=== PATIENT | male | born 1965 | race Caucasian/White ===

== ENCOUNTER 2017-10-26 10:38 | Emergency (ER) | payer BC, SELFPAY ==
[2017-10-26 10:39] VITALS: BP 163/102; PULSE 89; RESP 24; TEMP 36.8; O2SAT 93; BMI 38.8
--- NOTE | 2017-10-26 10:55 | ED.VISSUMM ---
- ER Visit Summary Date of Service: 10/26/17 Chief Complaint: Productive cough of green sputum along with wheezing and shortness of breath the last 2 weeks History of Present Illness: The patient is a 51 M history of bronchitis and tobacco abuse. Debility smokes a pack cigarettes a day. States last 2 weeks she has had a productive cough of green sputum. Denies any fever. Also shortness of breath and wheezing. But denies any hemoptysis. He denies any significant chest pain. No leg pain or swelling. No history of DVT or PE. Physical Examination: Middle-aged male no acute distress vital signs stable afebrile. Pulse ox 93% on room air no hypoxia. H EENT exam unremarkable. Neck nontender no JVD no lymphadenopathy. Lungs prolonged expiratory phase. Inspiratory expiratory wheezing. No rhonchi or rales. Heart regular rhythm rate about 90 no murmur. Abdomen soft nontender. Moving all 4 extremities. No edema or cords. Calves nontender. Neurologically is awake and alert with no focal motor deficits. Back exam nontender. Test Results: Chest x-ray shows mild hyperinflation with no acute abnormality no infiltrate read both by myself and the radiologist. Emergency Department Course and Treatment: Patient will be treated with p.o. steroids prednisone and DuoNeb and albuterol aerosol treatments. Treatment Plan: Repeat exam patient is doing well. Much better after aerosols and steroids. Will be placed on prednisone 40 g a day for 1 week. Uses inhalers. Return if doing worse. Disposition: Discharge Impression: Acute asthmatic bronchitis This note was generated with [employer] dictation software. It may contain incorrect words, spelling, and punctuation that were not noted in review of the chart prior to signing ED Disposition - Plan for ED Patient: Chief Complaint: Shortness of Breath Referrals: Tu Rae Chi, MD [Primary Care Provider] -
[2017-10-26 10:56] VITALS: BP 166/102; PULSE 95; RESP 17; O2SAT 92
--- NOTE | 2017-10-26 11:00 | RAD_ITS ---
STUDY: X-RAY CHEST REASON FOR EXAM: Male, 51 years old. Cough, shortness of breath TECHNIQUE: PA and lateral views of the chest. COMPARISON: 06/01/2016 FINDINGS: Cardiac monitoring leads overlie the chest. The lungs are hyperinflated. There is no focal consolidation. There is no demonstrated pleural abnormality. Normal size heart. Normal mediastinum and praveen. Normal visualized pulmonary arteries. Normal visualized aortic arch and descending thoracic aorta. There are diffuse degenerative changes of the visualized thoracic spine. Normal visualized ribs, clavicles, and shoulders. There is no demonstrated abnormality of the visualized soft tissue structures of the upper abdomen. RAD/Chest PA and Lateral IMPRESSION: Hyperinflation, without focal consolidation. Electronically Signed: Ben Ruiz DO at 11:29 EDT Tel , Service support ,
[2017-10-26] MEDS: Albuterol 2.5 MG/3 ML VIAL.NEB. INHALATION ×2 (11:08→11:10)
[2017-10-26] MEDS: Ipratropium/Albuterol Sulfate 3 ML AMPUL.NEB INHALATION (11:08)
[2017-10-26 11:10] VITALS: PULSE 90; RESP 13; O2SAT 93
[2017-10-26] MEDS: predniSONE 20 MG Tablet 60 MG PO (11:20)
[2017-10-26 12:17] VITALS: O2SAT 93
--- NOTE | 2017-10-26 12:20 | ED.DEP ---
ED Disposition - Plan for ED Patient: Disposition: Home or Assisted Living Chief Complaint: Shortness of Breath Instructions: ED Bronchitis Asthmatic Prescriptions: Albuterol Inhaler [Ventolin Hfa] 1 - 2 puff INHALATION Q4H PRN PRN #1 inhaler PRN Reason: Wheezing Azithromycin [Zithromax Z-Theron] 250 mg PO UD #1 box Prednisone [Deltasone] 40 mg PO DAILY 7 Days tab Referrals: Tu Rae Chi, MD [Primary Care Provider] - Additional Instructions: Absolutely stop smoking. Prednisone 40 g a day for 1 week. Usual inhaler as needed. Return if doing worse. Only start antibiotic if not improving in 3-5 days.
== END 2017-10-26 13:29 | disposition home or self-care (01) ==
PROVIDERS: Emergency Provider Emergency Medicine; Family Provider Family Medicine Geriatric Medicine; PCP Family Medicine Geriatric Medicine
DX: J45.901 Unspecified asthma with (acute) exacerbation (principal); R06.00 Dyspnea, unspecified; F17.210 Nicotine dependence, cigarettes, uncomplicated
CPT/HCPCS: 71046; 94640; 99283

== ENCOUNTER 2020-12-27 11:22 | Emergency (ER) | payer BC, SELFPAY ==
[2020-12-27 11:23] VITALS: BP 194/118; PULSE 80; RESP 19; TEMP 36.2; O2SAT 96; BMI 43.0
--- NOTE | 2020-12-27 12:08 | VDLE_ITS ---
Reason For Study: Swelling Procedure LEFT This is a venous duplex using B-mode, color GSV is normal. flow and spectral Doppler. CFV is compressible, spontaneous, phasic, Exam performed portable in ED. competent, and demonstrates normal A preliminary report was called and/or faxed augmentation. to [facility]. FV is compressible, spontaneous, phasic, competent and demonstrates normal augmentation. POP V is compressible, spontaneous, phasic, competent and demonstrates normal augmentation. T/P Trunk is compressible. PTV is compressible. LT PerV is compressible. VL/Venous Duplex US, Unilateral Interpretation Summary There is no evidence of left lower extremity deep vein thrombosis. Left great s aphenous vein appears patent and compressible segmentally. Ordering Physician: MD Steff Escobedofer Referring Physician: Tu Rae Chi Performed By: Salena Linn RVT
--- NOTE | 2020-12-27 12:29 | EX.ED.DYSGE1 ---
HPI History of Present Illness Chief Complaint: Wound Check Informant: patient Onset/Context/Timing Onset: Weeks Current Severity: Mild Maximum Severity: Moderate Narrative Narrative: Patient presents secondary to left lower extremity wound. He has a superficial ulcerated lesion to the left leon that is been present for several months. Patient states of the past 2 weeks has had redness around the area. He went to urgent care today who sent him to the emergency room. He denies any drainage from the wound. No fever or chills. PFSH PFS Medical History Hypertension Home Medications albuterol sulfate [Ventolin HFA] 2 puff INHALATION Q4H PRN PRN #1 inhaler 12/27/20 [Rx Last Taken Unknown] doxycycline monohydrate 100 mg PO BID #20 cap 12/27/20 [Rx Last Taken Unknown] Allergy/AdvReac Type Severity Reaction Status Date / Time iodine Allergy Severe Anaphylaxis Verified 10/26/17 10:40 iohexol [From Omnipaque] Allergy Severe Anaphylaxis Verified 10/26/17 10:40 Iodinated Contrast Media [CT] Allergy Anaphylaxis Verified 10/26/17 10:40 Social History Smoking Status: Current every day smoker tobacco type: cigarettes ROS ROS ED Constitutional Constitutional ED: Denies chills or fever(s) Eyes Eyes: Denies change in vision ENT ENT ED: Denies sore throat Cardiovascular Cardiovascular: Denies chest pain Respiratory/Chest Respiratory/Chest: Denies cough or dyspnea Gastrointestinal Gastrointestinal: Denies abdominal pain, diarrhea, nausea or vomiting Genitourinary Genitourinary ED: Denies dysuria Musculoskeletal Musculoskeletal: Reports arthralgias Integumentary Reports other Details: Left leg wound ; Denies rash Neurologic Neurologic: Denies headache(s) or weakness Psychiatric Psychiatric: Denies anxiety or depression Allergic/Immunologic Allergic/Immunologic ED: Denies urticaria EXAM Physical Exam Const Vital Signs: 12/27/20 11:23 Temperature 97.1 F L Temperature Source Temporal Pulse Rate 80 Respiratory Rate 19 H Blood Pressure 194/118 H Blood Pressure Mean 143 Pulse Ox 96 Oxygen Delivery Method Room Air Positive well nourished and well developed General Appearance ED: well developed HEENT Reports normocephalic and head/scalp atraumatic Eyes PERRL and EOMs intact bilaterally Neck supple Chest Wall inspection of chest normal and palpation of chest normal Resp normal respiratory effort Auscultation: wheezes expiratory wheezes Cardio regular rate and regular rhythm GI normal to inspection, nondistended, normoactive bowel sounds and non-tender Palpation: soft Extremity Extremity Narrative: 5 x 3 cm superficial dried ulcer to the left leon. Mild surrounding erythema and warmth. No drainage from the wound. 2+ edema to the left lower extremity. Neuro oriented x3 and no sensory deficits noted Sensorium / Orientation: alert Motor Exam: strength 5/5 throughout Psych mental status grossly normal MDM MDM MDM Narrative Medical decision making narrative: Venous ultrasound of the leg obtained. CBC and chemistry studies ordered. Lab Data Attestation: I reviewed the patient's lab results. Labs: Laboratory Results - last 24 hr 12/27/20 12/27/20 12:20 12:20 WBC 7.1 RBC 4.96 Hgb 16.1 Hct 47.3 MCV 95.4 H MCH 32.5 H MCHC 34.0 RDW Std Deviation 41.3 RDW Coeff of Rohit 12.1 Plt Count 251 MPV 8.0 Immature Gran % (Auto) 1.400 H Neut % (Auto) 61.3 Lymph % (Auto) 28.5 [place] % (Auto) 6.8 Eos % (Auto) 1.0 Baso % (Auto) 1.0 Absolute Neuts (auto) 4.3 Absolute Lymphs (auto) 2.01 Nucleated RBC % 0 Sodium 139 Potassium 3.9 Chloride 102 Carbon Dioxide 33.0 H Anion Gap 4 L BUN 11 Creatinine 0.96 Estim Creat Clear Calc 88.72 Est GFR (MDRD) Af Amer 104 Est GFR (MDRD) Non-Af 86 BUN/Creatinine Ratio 11.5 Glucose 145 H Calcium 9.4 Treatment and Re-Evaluation Comments:: Venous ultrasound of the leg obtained. Lab work unremarkable. Patient be treated with a course of doxycycline as he does have erythema and warmth consistent with an early cellulitis. Will refer him to the wound care center for follow-up. Patient's blood pressure was quite elevated on arrival. On repeat examination blood pressure is 170/120. Patient states that he tends to run very high at the doctor's offices. Blood pressure still elevated at home but better. He has been tried on multiple blood pressure medications but unable to tolerate them secondary to dizziness. Discharge Plan Triage Chief Complaint: Wound Check ED Provider: Rosalva Escobedo Dx/Rx/DC Orders Clinical Impression: Cellulitis Instructions: ED Cellulitis Prescriptions: New doxycycline monohydrate 100 MG capsule 100 mg PO BID Qty: 20 RF: 0 albuterol sulfate [Ventolin HFA] 1 INHALER inhaler 2 puff inhalation Q4H PRN PRN (Reason: Wheezing) Qty: 1 RF: 0 Primary Care Provider: Tu Rae Chi Referrals: Tu Rae Chi, MD [Primary Care Provider] - Activity Restrictions/Additional Instructions: Please follow-up with the wound care center. You can call [phone] for an appointment. Disposition Disposition: Home, Self Care
[2020-12-27 12:43] LABS: Absolute Lymphocyte Count 2.01 X10^3/uL (0.83-4.51); Absolute Neutrophil Count 4.3 X10^3/uL (2.0-7.7); Basophil# 0.07 X10^3/uL; Eosinophil# 0.07 X10^3/uL; Hematocrit 47.3 % (40-54); Hemoglobin 16.1 g/dL (13.0-16.5); Lymphocyte # 2.01 X10^3/ul (0.83-4.51); Lymphocyte % 28.5 % (19-41); Mean Corpuscular Hgb 32.5 pg (27.0-32.0); Mean Corpuscular Volume 95.4 fL (80-94); Monocyte# 0.48 X10^3/uL; Monocyte% 6.8 % (0-10); NRBC Flagged by Analyzer 0 % (0-5); Neutrophil # 4.32 X10^3/uL (2.7-7.7); Neutrophil % 61.3 % (47-70); Platelet Count 251 K/mm3 (150-450); RBC Distribution Width CV 12.1 % (11.6-14.6); RBC Distribution Width SD 41.3 fl (35.1-43.9); Red Blood Count 4.96 M/mm3 (4.6-6.2); White Blood Count 7.1 K/mm3 (4.4-11.0)
[2020-12-27 12:49] LABS: Anion Gap 4 (5-15); BUN 11 mg/dL (7-18); BUN/Creat Ratio 11.5 RATIO (10-20); Calcium,Total 9.4 mg/dL (8.5-10.1); Chloride 102 mmol/L (98-107); Creatinine, Serum 0.96 mg/dL (0.70-1.30); EST Glomerular Filtration Rate 86 mL/min (>60); Est Glom Filt Rate - Afr Amer 104 mL/min (>60); Estimated Creatinine Clearance 88.72 ml/min; Glucose 145 mg/dL (74-106); Potassium 3.9 mmol/L (3.5-5.1); Sodium Level 139 mmol/L (136-145)
[2020-12-27] MEDS: Doxycycline 100 MG CAPSULE PO (13:13)
[2020-12-27 13:16] VITALS: BP 182/112; PULSE 86; RESP 18; TEMP 36.6; O2SAT 97
== END 2020-12-27 13:18 | disposition home or self-care (01) ==
LOC: ED 13:11
PROVIDERS: Emergency Provider Emergency Medicine
DX: L03.116 Cellulitis of left lower limb (principal); F17.210 Nicotine dependence, cigarettes, uncomplicated
CPT/HCPCS: 80048; 85025; 93971; 99284; A4216

== ENCOUNTER 2021-01-02 12:07 | Emergency (ER) | payer BC, SELFPAY ==
[2021-01-02 12:08] VITALS: BP 153/100; PULSE 103; RESP 18; TEMP 36.3; O2SAT 94; BMI 43.0
--- NOTE | 2021-01-02 12:40 | EDS_ITS ---
HPI History of Present Illness Chief Complaint: Lower Extremity Injury Informant: patient Onset/Context/Timing Onset: Weeks Context: Gradual Onset Narrative Narrative: Patient presents for repeat evaluation of his left lower leg swelling. Patient was seen 1 week ago by myself. At that time he had a several month history of chronic wound to the left leon and left leg swelling. He noticed redness and warmth. Blood work was unremarkable. Venous ultrasound negative for DVT. He was given a course of doxycycline and referred to the wound care center. Patient states he has not noted significant improvement with the doxycycline and wanted to be rechecked. No fever or chills. [facility] Medical History Hypertension Home Medications albuterol sulfate [Ventolin HFA] 2 puff INHALATION Q4H PRN PRN #1 inhaler 12/27/20 [Rx Last Taken Unknown] doxycycline monohydrate 100 mg PO BID #20 cap 12/27/20 [Rx Last Taken Unknown] Allergy/AdvReac Type Severity Reaction Status Date / Time iodine Allergy Severe Anaphylaxis Verified 01/02/21 12:14 iohexol [From Omnipaque] Allergy Severe Anaphylaxis Verified 01/02/21 12:14 Iodinated Contrast Media [CT] Allergy Anaphylaxis Verified 01/02/21 12:14 Social History Smoking Status: Current every day smoker tobacco type: cigarettes ROS ROS ED Constitutional Constitutional ED: Denies chills or fever(s) Eyes Eyes: Denies change in vision ENT ENT ED: Denies sore throat Cardiovascular Cardiovascular: Denies chest pain Respiratory/Chest Respiratory/Chest: Denies cough or dyspnea Gastrointestinal Gastrointestinal: Denies abdominal pain, diarrhea, nausea or vomiting Genitourinary Genitourinary ED: Denies dysuria Musculoskeletal Musculoskeletal: Reports other Details: Leg edema ; Denies back pain Integumentary Reports other Details: Erythema lower legs, left greater than right Neurologic Neurologic: Reports headache(s) Endocrine Endocrinology: Denies polydipsia or polyuria Allergic/Immunologic Allergic/Immunologic ED: Denies urticaria EXAM Physical Exam Const Vital Signs: 01/02/21 12:08 01/02/21 13:06 Temperature 97.3 F L 97.3 F L Temperature Source Temporal Temporal Pulse Rate 103 H 103 H Respiratory Rate 18 18 Blood Pressure 153/100 H 153/100 H Blood Pressure Mean 117 117 Pulse Ox 94 94 Oxygen Delivery Method Room Air Room Air Positive well nourished and well developed General Appearance ED: well developed HEENT Reports normocephalic and head/scalp atraumatic Eyes PERRL and EOMs intact bilaterally Neck supple Chest Wall inspection of chest normal and palpation of chest normal Resp normal respiratory effort and clear to auscultation bilaterally Cardio regular rate and regular rhythm GI normal to inspection, nondistended, normoactive bowel sounds Palpation: soft Extremity Extremity Narrative: 3+ left lower extremity edema. 1-2+ right lower extremity edema. Evidence of venous congestion with broken capillaries under the skin. Chronic wound over the left leon appears to be improving with no sign of acute infection. No significant warmth over the area indicative of acute infection. Neuro oriented x3 and no sensory deficits noted Sensorium / Orientation: alert Motor Exam: strength 5/5 throughout Psych mental status grossly normal MDM MDM MDM Narrative Medical decision making narrative: CBC is obtained to check for leukocytosis. Lab Data Attestation: I reviewed the patient's lab results. Labs: Laboratory Results - last 24 hr 01/02/21 13:05 WBC 5.1 RBC 4.73 Hgb 15.6 Hct 45.7 MCV 96.6 H MCH 33.0 H MCHC 34.1 RDW Std Deviation 43.7 RDW Coeff of Rohit 12.1 Plt Count 172 MPV 8.1 Immature Gran % (Auto) 0.800 Neut % (Auto) 60.0 Lymph % (Auto) 29.3 [place] % (Auto) 7.9 Eos % (Auto) 1.6 Baso % (Auto) 0.4 Absolute Neuts (auto) 3.1 Absolute Lymphs (auto) 1.49 Nucleated RBC % 0 Treatment and Re-Evaluation Comments:: Patient's white count remains normal. When I saw the patient previously there was some increased erythema and warmth over the left anterior leon. That seems to be resolved. The skin changes I see currently are more consistent with lymphedema and capillary rupture from pressure. Hesham wrap will be applied to provide light compression. Patient will be referred back to wound care center for follow-up. He will be given a couple days off work. Discharge Plan Triage Chief Complaint: Lower Extremity Injury ED Provider: Escobedo,Rosalva Dx/Rx/DC Orders Clinical Impression: Lymphedema Instructions: ED Lymphedema Prescriptions: No Action doxycycline monohydrate 100 MG capsule 100 mg PO BID Qty: 20 RF: 0 albuterol sulfate [Ventolin HFA] 1 INHALER inhaler 2 puff inhalation Q4H PRN PRN (Reason: Wheezing) Qty: 1 RF: 0 Primary Care Provider: Care Physician,No Primary Referrals: Care Physician,No Primary [Primary Care Provider] - Activity Restrictions/Additional Instructions: Please follow-up with the wound care center. You can call [phone] for an appointment. Disposition Disposition: Home, Self Care
[2021-01-02 13:06] VITALS: BP 153/100; PULSE 103; RESP 18; TEMP 36.3; O2SAT 94
[2021-01-02 13:17] LABS: Absolute Lymphocyte Count 1.49 X10^3/uL (0.83-4.51); Absolute Neutrophil Count 3.1 X10^3/uL (2.0-7.7); Basophil# 0.02 X10^3/uL; Basophil% 0.4 % (0-1); Eosinophil# 0.08 X10^3/uL; Eosinophils% 1.6 % (0-5); Hematocrit 45.7 % (40-54); Hemoglobin 15.6 g/dL (13.0-16.5); Lymphocyte # 1.49 X10^3/ul (0.83-4.51); Lymphocyte % 29.3 % (19-41); Mean Corp Hgb Conc 34.1 g/dL (32-36); Mean Corpuscular Volume 96.6 fL (80-94); Mean Platelet Vol. 8.1 fl (6.2-12.0); Monocyte% 7.9 % (0-10); NRBC Flagged by Analyzer 0 % (0-5); Neutrophil # 3.06 X10^3/uL (2.7-7.7); Platelet Count 172 K/mm3 (150-450); RBC Distribution Width CV 12.1 % (11.6-14.6); RBC Distribution Width SD 43.7 fl (35.1-43.9); Red Blood Count 4.73 M/mm3 (4.6-6.2); White Blood Count 5.1 K/mm3 (4.4-11.0)
[2021-01-02 15:23] VITALS: BP 134/79; PULSE 92; RESP 22; O2SAT 96
--- NOTE | 2021-01-02 15:24 | ED.RN ---
THIS NURSE REVIEWED D/C INSTRUCTIONS WITH PT. PT VERBALIZED UNDERSTANDING OF INSTRUCTIONS. LEGS WRAPPED. IV D/C. IV CATHETER INTACT. PT TOLERATED WELL. PT DENIES FURTHER NEEDS OR QUESITONS AT THIS TIME. PT AMBULATES FROM ROOM ON OWN WITHOUT ASSISTANCE FROM STAFF
== END 2021-01-02 15:25 | disposition home or self-care (01) ==
PROVIDERS: Emergency Provider Emergency Medicine
DX: I89.0 Lymphedema, not elsewhere classified (principal); F17.210 Nicotine dependence, cigarettes, uncomplicated
CPT/HCPCS: 85025; 99283; A4216

== ENCOUNTER → 2021-01-10 10:21 | Outpatient (CLI) | payer BC, SELFPAY ==
[2021-01-10 11:22] LABS: Absolute Lymphocyte Count 1.87 X10^3/uL (0.83-4.51); Absolute Neutrophil Count 3.7 X10^3/uL (2.0-7.7); Basophil# 0.04 X10^3/uL; Basophil% 0.6 % (0-1); Eosinophil# 0.16 X10^3/uL; Eosinophils% 2.5 % (0-5); Hematocrit 44.3 % (40-54); Hemoglobin 14.9 g/dL (13.0-16.5); Lymphocyte # 1.87 X10^3/ul (0.83-4.51); Lymphocyte % 29.1 % (19-41); Mean Corp Hgb Conc 33.6 g/dL (32-36); Mean Corpuscular Hgb 32.1 pg (27.0-32.0); Mean Corpuscular Volume 95.5 fL (80-94); Mean Platelet Vol. 8.2 fl (6.2-12.0); Monocyte# 0.52 X10^3/uL; Monocyte% 8.1 % (0-10); NRBC Flagged by Analyzer 0 % (0-5); Neutrophil # 3.73 X10^3/uL (2.7-7.7); Neutrophil % 58.1 % (47-70); Platelet Count 248 K/mm3 (150-450); RBC Distribution Width CV 11.9 % (11.6-14.6); RBC Distribution Width SD 41.4 fl (35.1-43.9); Red Blood Count 4.64 M/mm3 (4.6-6.2); White Blood Count 6.4 K/mm3 (4.4-11.0)
[2021-01-10 11:32] LABS: Erythrocyte Sedimentation Rate 17 mm/hr (0-20)
[2021-01-10 11:48] LABS: ALB/GLOB Ratio 0.7 RATIO (0.9-2.4); AST(SGOT) 16 U/L (15-37); Alanine Aminotransfer ALT/SGPT 21 U/L (16-61); Albumin, Serum 2.9 g/dL (3.2-5.0); Alkaline Phosphatase 87 U/L (45-117); Anion Gap 7 (5-15); BUN 9 mg/dL (7-18); BUN/Creat Ratio 9.1 RATIO (10-20); Calcium,Total 8.8 mg/dL (8.5-10.1); Chloride 100 mmol/L (98-107); Creatinine, Serum 0.99 mg/dL (0.70-1.30); EST Glomerular Filtration Rate 83 mL/min (>60); Est Glom Filt Rate - Afr Amer 101 mL/min (>60); Globulin 4.4 g/dL (2.2-4.2); Glucose 118 mg/dL (74-106); Potassium 3.6 mmol/L (3.5-5.1); Prealbumin 15.5 mg/dL (20.0-40.0); Protein, Total 7.3 g/dL (6.4-8.2); Sodium Level 138 mmol/L (136-145)
[2021-01-10 11:54] LABS: Hemoglobin A1c 5.5 % (3.8-5.6)
== END ==
LOC: LAB 10:23
PROVIDERS: Referring Provider Nurse Practitioner Family; Visit Provider Nurse Practitioner Family
DX: R73.02 Impaired glucose tolerance (oral) (principal)
CPT/HCPCS: 36415; 80053; 83036; 84134; 85025; 85652

== ENCOUNTER 2021-01-11 10:00 | Outpatient (RCR) | payer BC, SELFPAY ==
[2021-01-07 08:45] VITALS: BP 159/98; PULSE 90; TEMP 36.6
--- NOTE | 2021-01-07 12:19 | HP.PCM_ITS ---
History of Present Illness Date of Service: 01/07/21 Chief Complaint: Left leg wound, rash History of Wound: Obdulio is a pleasant 55-year-old male who presents to the wound healing center for an initial evaluation of a left leg ulcer. He has a past medical history significant for hypertension and hyperlipidemia. He is a pack per day smoker and has been practically his whole life. He also consumes alcohol regularly. He is not established with a primary care provider, and does not take any medications. He previously was on medication for hypertension, but stated that these medications made him dizzy so he stopped taking them. He was also previously treated asthma or COPD with an inhaler, but does not recall specific details. He has never been diagnosed with diabetes, chronic kidney disease, or peripheral vascular disease. He states that he scraped his left leon when tripping over a hose in February 2020. Since that time he has had a wound on his left leon, which frequently scabs over then reopens. He would use triple antibiotic ointment and a gauze bandage over his wound. At one point he also used an antifungal cream, as he felt his wound may have been ringworm. He also began using antiseptic wipes periodically (industrial cleaning wipes) to clean the wound. In November 2020, he felt that the wound was becoming infected. He does report he had gone swimming in [place] around that time. He was seen in the emergency department at [facility] on 12/27/2020. A left lower extremity venous ultrasound revealed no evidence of DVT in the left lower extremity; the left great saphenous vein appeared patent and compressible segmentally. He was started on doxycycline 100 mg twice daily x10 days. He returned to the emergency room on 01/02/2021. He states he had developed a painful rash with starting doxycycline, extending from his abdomen to his toes, but was told to continue taking the doxycycline. There is no mention of a rash in his ER documentation from 01/02/2021. He completed his course of doxycycline yesterday, and feels his rash has slightly improved since that time. He still reports discomfort in the legs. He does not feel they are more swollen than his baseline. His labs from his ER visits were grossly unremarkable aside from an elevated blood glucose. He does not use compression to his lower extremities. His job requires long hours of standing. He does not elevate his lower extremities often. He does s leep in a bed at night. The patient denies fever, chills, general malaise, or poor appetite. The patient has not had increased redness, swelling, or purulent/malodorous drainage from affected area. [facility] Medical History (Updated 01/07/21 @ 12:49 by Marlee Dee NP, BIOMEDICAL SPECIALIST-C) Allergic drug rash Bilateral lower extremity edema Hypertension Ulcer of right lower extremity with fat layer exposed Venous stasis ulcer of left lower leg with edema of left lower leg Allergy/AdvReac Type Severity Reaction Status Date / Time iodine Allergy Severe Anaphylaxis Verified 01/02/21 12:14 iohexol [From Omnipaque] Allergy Severe Anaphylaxis Verified 01/02/21 12:14 doxycycline Allergy Rash Verified 01/07/21 09:02 Iodinated Contrast Media [CT] Allergy Anaphylaxis Verified 01/02/21 12:14 Social History Smoking Status: Current every day smoker tobacco type: cigarettes ROS Constitutional Constitutional: Denies chills, fever(s) or night sweats Eyes Eyes: Denies change in vision or double vision ENT HEENT: Denies lip swelling or tongue swelling Cardiovascular Cardiovascular: Reports leg edema; Denies chest pain or palpitations Respiratory/Chest Respiratory/Chest: Reports shortness of breath with exertion and wheezing; Denies cough or shortness of breath at rest Gastrointestinal Gastrointestinal: Denies diarrhea, nausea or vomiting Genitourinary Genitourinary: Denies dysuria or hematuria Musculoskeletal Musculoskeletal: Reports extremity pain; Denies abnormal gait, muscle weakness, numbness or tingling Integumentary Integumentary: Reports rash and wounds Neurologic Neurologic: Denies abnormal gait, abnormal speech or focal weakness Endocrine Endocrinology: Denies cold intolerance, heat intolerance, polydipsia or polyuria Hematologic/Lymphatic Hematologic/Lymphatic: Denies easy bleeding or easy bruising Vital Signs Vital Signs Vital Signs: 01/07/21 08:45 Temperature 97.9 F Temperature Source Temporal Pulse Rate 90 Blood Pressure 159/98 H Blood Pressure Mean 118 Blood Pressure Source Monitor Physical Exam Const alert, no apparent distress and healthy appearing General Appearance: cooperative, comfortable and well kempt Orientation / Consciousness: awake Nutritional Appearance: obese HEENT Head and Scalp: normocephalic and atraumatic Eyes EOMs intact bilaterally Neck supple and no JVD Resp normal respiratory effort, normal air movement and no use of accessory muscles Auscultation: wheezes expiratory wheezes, inspiratory wheezes and throughout; Negative for crackles, rales or rhonchi Cardio regular rate and regular rhythm GI normal to inspection, nondistended, normoactive bowel sounds Extremity normal capillary refill, no joint enlargement, no calf tenderness and no pedal edema General Extremity: edema bilateral lower extremity Details: moderate; Negative for clubbing or cyanosis Peripheral Pulses: Yes dorsalis pedis pulses present bilateral 2+ Skin Rashes: rashes noted bilateral legs and abdomen Narrative: Generalized petechial rash of bilateral feet, legs, and abdomen; patient reports it is painful but nonpruritic. No rash of the upper extremities, back, face, or eyes. petechiae Wounds: wounds noted No malodorous Wound Narrative: Generalized scabbing and minor blistering present over the bilateral lower legs. Small right lower extremity ulcer with sloughed skin and small amount of drainage (nonpurulent and nonmalodorous). Subcutaneous layer exposed. No tunneling, undermining, or probing to bone. Tender to palpation and debridement. No significant warmth. Anterior left lower extremity ulcer with subcutaneous layer exposed. Moderate to large amount of dry skin, scabbing, and devitalized tissue present. No tunneling, undermining, or probing to bone. Tender to palpation and debridement. No significant warmth. Neuro oriented x3, moves all extremities and no focal motor deficits Psych mental status grossly normal, cooperative and affect normal Debridement Note Debridement Note Wound debrided: Right lower extremity ulcer Laterality: Right Type of Debridement: Excisional debridement Anesthesia Used: - Depth: in the subcutaneous layer Percentage of wound debrided: 100 Instrument Used: 3mm curette Tissue Removed: Slough and devitalized tissue Severity: Fat Layer Exposed Amount of bleeding with debridement: Mild Bleeding Controlled with: Pressure Patient tolerated procedure: Patient tolerated procedure well Post-Debridement Measurements and Additional Note: Post-Debridement Measurements/Treatment SEFERINO - Nurse 1 - General Ulcer Assessment Start: 01/07/21 08:38 Freq: Status: Active Protocol: HEVER Activity Type Activity Date Activity User E-Sign Co-Sign Detail Recorded Client Recorded Date Recorded By Document 01/07/21 08:45 BARRIE [id number] 01/07/21 08:53 BARRIE 01/07/21 08:45 WC - Today's Visit Information Type of service Initial Visit Arrival Mode Ambulatory Patient Identification Verified (Name & Yes ) Patient Requires Transmission-Based No Precautions Safety Precautions NA Vital Signs Temperature (97.8 F-99.1 F) 97.9 F Temperature Source Temporal Pulse Rate (60-100) 90 Pulse Location Monitor Blood Pressure (90/60-120/80) 159/98 H Blood Pressure Mean 118 Source Monitor History Since Last Visit- (Skip if this is Patient's initial visit) Have you changed medications since your No last visit? Left Footwear Regular Shoe Right Footwear Regular Shoe - Nurse 1 - General Ulcer Measurement Start: 01/07/21 08:38 Freq: Status: Active Protocol: Activity Type Activity Date Activity User E-Sign Co-Sign Detail Recorded Client Recorded Date Recorded By Document 01/07/21 08:45 BARRIE [id number] 01/07/21 08:53 BARRIE 01/07/21 08:45 Wound Center Nurse 1 #1 left leon -Combined with other wound No -Current Size (cm) - Length 5.5 -Current Size (cm) - Width 3.5 -Current Size (cm) - Depth 0.1 -Total Square Cm 19.25 -Photo Taken No -Epithelialization None Present -Tunneling No -Undermining/Tunneling No -Circular Undermining No -Change in Wound Grade/Stage No -Exudate Amt Medium -Exudate Type Serosanguineous -Wound Margin Distinct, Outline Attached -Granulation Amt None Present (0 %) -Slough/Fibrin No -Structure Exposed N/A -Texture (Marcia-wound Skin Appearance) Assessed,Rash -Moisture (Marcia-wound Skin Appearance) Assessed,Dry/ Scaly -Color (Marcia-wound Skin Appearance) Assessed, Hemosiderin Staining -Temperature (Marcia-wound Skin No Abnormality Appearance) (Pt Warm) -Tenderness on Palpation (Marcia-wound Yes Skin Appearance) -Ulcer Cleansing Rinsed/ Irrigated with Saline -Foul Odor after Cleansing No -Anesthetic Used 5% Lidocaine Gel Right Calf (cm) 50 Right Ankle (cm) 30 Left Calf (cm) 53.5 Left Ankle (cm) 36 - Nurse 3 - General Ulcer D/C NN Start: 01/07/21 08:38 Freq: Status: Active Protocol: Activity Type Activity Date Activity User E-Sign Co-Sign Detail Recorded Client Recorded Date Recorded By Document 01/07/21 09:45 BARRIE [id number] 01/07/21 09:46 BARRIE 01/07/21 09:45 Wound Care Nurse 3 #1 left leon -Ulcer Cleansing Rinsed/ Irrigated with Saline -Foul Odor after Cleansing No -Negative Pressure Wound Therapy N/A -Primary Dressing Applied Aquacel AG 4x4 -Primary Dressing Covered/Secured with Dry Gauze -Aquacel AG 4x4 2 Left -Multi-Layered Wrap Application Unna Boot - Bilateral ($) -Unna Boots (Bilat) ($) 2 WC - Visit Discharge Discharge Condition Stable Ambulatory Status Ambulatory Transportation Private Auto Medication Reconcilliation completed & Yes provided to patient/care provider Clinical Summary of Care Provided Yes Additional Wound Wound debrided: Anterior left lower extremity ulcer Laterality: Left Type of Debridement: Excisional debridement Anesthesia Used: 5% Lidocaine Gel Depth: in the subcutaneous layer Percentage of wound debrided: 100 Instrument Used: 7mm curette Tissue Removed: Slough and devitalized tissue Severity: Fat Layer Exposed Amount of bleeding with debridement: Mild Bleeding Controlled with: Pressure Patient tolerated procedure: Patient tolerated procedure well Charges/Coding Visit Charges Office Visits / Consults: [id number] OV L4 New Procedures Integumentary [id number]: [id number] Diana subq tissue 20 sq cm/< Assessment/Plan Assessment/Plan (1) Venous stasis ulcer of left lower leg with edema of left lower leg: CODE(S): I83.029 - Varicose veins of left lower extremity with ulcer of unspecified site; I83.892 - Varicose veins of left lower extremity with other complications; L97.929 - Non-pressure chronic ulcer of unspecified part of left lower leg with unspecified severity; R60.9 - Edema, unspecified (2) Ulcer of right lower extremity with fat layer exposed: CODE(S): L97.912 - Non-pressure chronic ulcer of unspecified part of right lower leg with fat layer exposed (3) Allergic drug rash: CODE(S): L27.0 - Generalized skin eruption due to drugs and medicaments taken internally (4) Bilateral lower extremity edema: CODE(S): R60.0 - Localized edema PLAN: Debridement performed today in clinic as annotated above. Aquacel Ag applied to the open ulcers of his right and left lower extremity. Bilateral Unna boots applied for the dry skin and scabbing of the bilateral lower extremities. My suspicion is that his rash is drug related (from taking doxycycline). He has finished this course of antibiotics. He is not currently taking any other medications. He is not experiencing any pruritus or systemic symptoms. Due to uncontrolled hypertension, steroids will not be administered at this time. Given the duration of the patient's anterior left lower extremity ulcer and failure of the wound to respond to standard wound care, we will apply for advanced skin substitutes (Puraply, Apligraf). At home wound-care instructions: Keep Unna boots clean and dry. Cover with a cast cover or plastic bag when showering, taking caution when showering to avoid slips/falls. Return on Sunday for a nurse visit to have Unna boots changed. If anytime you experience discomfort in the legs or toes while wearing the Unna boots, elevate feet. Discomfort should diminish as leg swelling improves. If you develop persistent numbness/tingling or discoloration of the toes that does not improve with leg elevation, contact the wound healing center and/or remove your Unna boots. Off-loading: The patient was instructed to avoid pressure and friction on the affected areas. Reposition every 2 hours at minimum. Avoid prolonged standing and/or dangling of legs. When seated, feet should be elevated at chest level. Frequent ambulation is encouraged. Diet: Patient encouraged to increase protein intake while taking caution to avoid high carbohydrate and/or sugar intake. Smoking: The risks of smoking and benefits of smoking cessation were discussed with the patient today. The patient is encouraged to quit smoking. If smoking cessation aids are desired, the patient should contact their primary care provider to discuss appropriate options. Labs/cultures/imaging: Cultures ordered and collected today from both the chronic left lower extremity ulcer and the acute right lower extremity ulcer. Routine baseline lab work ordered (CBCD, CMP, ESR, CRP, prealbumin, hemoglobin A1c). Complete venous and arterial studies of the bilateral lower extremities ordered. Follow-up: Patient was given a 2-week work excuse, due to the nature of his job requiring long periods of standing. He also does not feel he would be able to wear his work boots while wearing Unna boots. He is to have ordered testing completed within the next 2 weeks. Return to the clinic on Sunday for a nurse visit to have Unna boots removed and reapplied. Return to clinic in 1 week for re-evaluation. Return sooner or report to the emergency room should symptoms worsen, or new symptoms arise.
[2021-01-11 10:08] VITALS: BP 142/103; PULSE 72; TEMP 36.3
== END 2021-01-13 23:59 ==
LOC: WC 10:00
PROVIDERS: Visit Provider Nurse Practitioner Family
DX: I83.892 Varicose veins of left lower extremity with other complications (principal); L97.512 Non-pressure chronic ulcer of other part of right foot with fat layer exposed; L97.912 Non-pressure chronic ulcer of unspecified part of right lower leg with fat layer exposed; L27.0 Generalized skin eruption due to drugs and medicaments taken internally; R60.0 Localized edema; I10 Essential (primary) hypertension; F17.210 Nicotine dependence, cigarettes, uncomplicated; E78.5 Hyperlipidemia, unspecified
CPT/HCPCS: 11042; 11045; 29580; 87070; 87075; 87205; 99213; G0463

== ENCOUNTER → 2021-02-03 10:02 | Outpatient (CLI) | payer BC, SELFPAY ==
[2021-02-03 12:18] LABS: Vitamin D,25 Hydroxy 21.4 ng/mL
[2021-02-03 12:22] LABS: Cholesterol 209 mg/dL (200); Free T3 2.7 pg/mL (2.18-3.98); High Density Lipoprotein 57 mg/dL; Magnesium 2.1 mg/dL (1.6-2.6); PSA,Total - Annual Screen 0.26 ng/mL (0.00-4.00); T4 Free Direct 0.88 ng/dL (0.76-1.46); Thyroid Stim Hormone (TSH) 0.97 uIU/mL (0.358-3.74); Triglycerides 95 mg/dL; Very Low Density Lipoprotein 19 mg/dL (5-40)
== END ==
LOC: BIMLAB 10:03
PROVIDERS: PCP Internal Medicine; Referring Provider Internal Medicine; Visit Provider Internal Medicine
DX: L97.912 Non-pressure chronic ulcer of unspecified part of right lower leg with fat layer exposed (principal); R60.0 Localized edema; I10 Essential (primary) hypertension; E66.01 Morbid (severe) obesity due to excess calories; Z68.41 Body mass index [BMI] 40.0-44.9, adult
CPT/HCPCS: 36415; 80061; 82306; 83735; 84153; 84439; 84443; 84481; G0103

== ENCOUNTER 2021-02-11 09:45 | Outpatient (RCR) | payer BC, SELFPAY ==
[2021-01-14 00:40] VITALS: BP 142/103; PULSE 72; TEMP 36.3
[2021-01-14 12:38] VITALS: BP 150/98; PULSE 68; TEMP 36.3
--- NOTE | 2021-01-14 13:50 | PN.PCM_ITS ---
History of Present Illness Date of Service: 01/14/21 Chief Complaint: Left leg wound, rash History of Wound: Obdulio is a pleasant 55-year-old male who presents to the wound healing center for an initial evaluation of a left leg ulcer. He has a past medical history significant for hypertension and hyperlipidemia. He is a pack per day smoker and has been practically his whole life. He also consumes alcohol regularly. He is not established with a primary care provider, and does not take any medications. He previously was on medication for hypertension, but stated that these medications made him dizzy so he stopped taking them. He was also previously treated asthma or COPD with an inhaler, but does not recall specific details. He has never been diagnosed with diabetes, chronic kidney disease, or peripheral vascular disease. He states that he scraped his left leon when tripping over a hose in February 2020. Since that time he has had a wound on his left leon, which frequently scabs over then reopens. He would use triple antibiotic ointment and a gauze bandage over his wound. At one point he also used an antifungal cream, as he felt his wound may have been ringworm. He also began using alcohol wipes to clean the wound. In November 2020, he felt that the wound was becoming infected. He does report he had gone swimming in a [place] around that time. He was seen in the emergency department at [facility] on 12/27/2020. A left lower extremity venous ultrasound revealed no evidence of DVT in the left lower extremity; the left great saphenous vein appeared patent and compressible segmentally. He was started on doxycycline 100 mg twice daily x10 days. He returned to the emergency room on 01/02/2021. He states he had developed a painful rash with starting doxycycline, extending from his abdomen to his toes, but was told to continue taking the doxycycline. There is no mention of a rash in his ER documentation from 01/02/2021. He completed his course of doxycycline yesterday, and feels his rash has slightly improved since that time. He still reports discomfort in the legs. He does not feel they are more swollen than his baseline. His labs from his ER visits were grossly unremarkable aside from an elevated blood glucose. He does not use compression to his lower extremities. His job requires long hours of standing. He does not elevate his lower extremities often. He does sleep in a bed at night. The patient denies fever, chills, general malaise, or poor appetite. The patient has not had increased redness, swelling, or purulent/malodorous drainage from affected area. Progress of Wound: The patient's left leon ulcer is significantly improved in size and appearance. He has been tolerating Aquacel Ag to the left leon ulcer well. He has been compliant with using Unna boots. The patient initially felt his bilateral lower extremity and abdominal rash was improving. However, a few days ago he noticed the rash had spread to his upper extremities, and felt it was looking worse on his feet and lower extremities. The rash/blisters on the lower extremities began erupting, and he now has several open ulcerations of the bilateral lower extremities. The only noted change around the time of the rash worsening was that he had taken Aleve. He denies any itching with the rash. He denies any discomfort at this time. He denies any swelling of the throat or tongue, or difficulty breathing. He denies any recent alcohol use. He denies any illicit drug use. His labs were reviewed. His white blood cell count and ESR were normal. His glucose was mildly elevated and his prealbumin was low. His A1c was 5.5%. His wound culture demonstrated rare gram-positive rods. No antibiotics were initiated. Correction to above HPI was made: The patient clarified today that he had not been using industrial antiseptic wipes to clean the leg, but was using alcohol wipes from a first-aid kit at his place of employment. Objective Data Objective Data Vital Signs: Vital Signs Temp Pulse BP 97.4 F L 68 150/98 H 01/14/21 12:38 01/14/21 12:38 01/14/21 12:38 Charges/Coding Procedures Integumentary 111xxx-113xx: [id number] Diana subq tissue 20 sq cm/< Physical Exam Const alert, no apparent distress and healthy appearing General Appearance: cooperative, comfortable and well kempt Orientation / Consciousness: awake Nutritional Appearance: obese HEENT Head and Scalp: normocephalic and atraumatic Mouth: oral and palatal mucosa normal, lips normal and tongue normal Eyes EOMs intact bilaterally Neck supple and no JVD Resp normal respiratory effort, normal air movement and no use of accessory muscles Extremity normal capillary refill, no calf tenderness and no pedal edema General Extremity: edema bilateral lower extremity Details: mild; Negative for clubbing or cyanosis Peripheral Pulses: Yes dorsalis pedis pulses present bilateral 2+ Skin Rashes: rashes noted bilateral legs and abdomen Narrative: Generalized petechial rash of bilateral feet, legs, and abdomen; patient reports it is painful but nonpruritic. No rash of the upper extremities, back, face, or eyes. petechiae Wounds: wounds noted No malodorous Wound Narrative: Scattered scabbing, ulcerations, and small areas of blistering involving the entire lower legs below the knee. No tunneling, undermining, or probing to bone of ulcerations. Nontender to palpation this week, though chips screen tender to debridement. No significant warmth. Left leon ulcer with subcutaneous layer exposed. Small amount of slough and devitalized tissue present. No tunneling, undermining, or probing to bone. Tender to debridement. No significant warmth. Neuro oriented x3, moves all extremities and no focal motor deficits Psych mental status grossly normal, cooperative and affect normal Debridement Note Debridement Note Wound debrided: Left leon Laterality: Left Type of Debridement: Excisional debridement Anesthesia Used: 5% Lidocaine Gel Depth: in the subcutaneous layer Percentage of wound debrided: 100 Instrument Used: 3mm curette Tissue Removed: Slough and devitalized tissue Severity: Fat Layer Exposed Amount of bleeding with debridement: Mild Bleeding Controlled with: Pressure Patient tolerated procedure: Patient tolerated procedure well Post-Debridement Measurements and Additional Note: Post-Debridement Measurements/Treatment - Nurse 1 - General Ulcer Assessment Start: 01/14/21 09:43 Freq: Status: Active Protocol: HEVER Activity Type Activity Date Activity User E-Sign Co-Sign Detail Recorded Client Recorded Date Recorded By Document 01/14/21 12:38 BARRIE [id number] 01/14/21 12:43 BARRIE 01/14/21 12:38 - Today's Visit Information Type of service Follow-up Visit (Physician/COMPUTER SPECIALIST ) Arrival Mode Ambulatory Patient Identification Verified (Name & Yes ) Patient Requires Transmission-Based No Precautions Safety Precautions NA Vital Signs Temperature (97.8 F-99.1 F) 97.4 F L Temperature Source Temporal Pulse Rate (60-100) 68 Pulse Location Monitor Blood Pressure (90/60-120/80) 150/98 H Blood Pressure Mean (mm Hg) 115 Source Monitor History Since Last Visit- (Skip if this is Patient's initial visit) Have you changed medications since your No last visit? Any new allergies or adverse reactions No Had a fall/change in ADL's that may No increase risk of falls Signs or symptoms of abuse and/or No neglect since last visit Have you been in the hospital since your No last visit? Has dressing in place as prescribed Yes Has compression in place as prescribed N/A Has offloadiing in place as prescribed N/A Experienced any changes in pain level or No management Left Footwear Regular Shoe Right Footwear Regular Shoe WC - Nurse 1 - General Ulcer Measurement Start: 01/14/21 09:43 Freq: Status: Active Protocol: Activity Type Activity Date Activity User E-Sign Co-Sign Detail Recorded Client Recorded Date Recorded By Document 01/14/21 12:38 BARRIE [id number] 01/14/21 12:43 BARRIE 01/14/21 12:38 Wound Center Nurse 1 #2 Right Lat Lower Leg -Combined with other wound No -Current Size (cm) - Length 12 -Current Size (cm) - Width 14 -Current Size (cm) - Depth 0.1 -Total Square Cm 168 -Photo Taken No -Tunneling No -Undermining/Tunneling No -Circular Undermining No -Change in Wound Grade/Stage No -Exudate Amt Medium -Exudate Type Serosanguineous -Wound Margin Distinct, Outline Attached -Granulation Amt Medium (34-66%) -Granulation Quality [place],Red -Slough/Fibrin Yes -Necrosis Amt Medium (34-66%) -Necrotic Tissue Type Adherent Slough -Structure Exposed N/A -Texture (Marcia-wound Skin Appearance) No Abnormality, Assessed -Moisture (Marcia-wound Skin Appearance) Assessed, Maceration -Color (Marcia-wound Skin Appearance) No Abnormality, Assessed, Hemosiderin Staining -Temperature (Marcia-wound Skin No Abnormality Appearance) (Pt Warm) -Tenderness on Palpation (Marcia-wound No Skin Appearance) -Ulcer Cleansing Soap and Water -Foul Odor after Cleansing No -Anesthetic Used 5% Lidocaine Gel #1 left leon -Combined with other wound No -Current Size (cm) - Length 19 -Current Size (cm) - Width 23 -Current Size (cm) - Depth 0.1 -Total Square Cm 437 -Photo Taken No -Tunneling No -Undermining/Tunneling No -Circular Undermining No -Classification - Thickness Partial Thickness -Change in Wound Grade/Stage No -Exudate Amt Medium -Exudate Type Serosanguineous -Wound Margin Distinct, Outline Attached -Granulation Amt Medium (34-66%) -Granulation Quality [place],Red -Slough/Fibrin Yes -Necrosis Amt Medium (34-66%) -Necrotic Tissue Type Adherent Slough -Structure Exposed N/A -Texture (Marcia-wound Skin Appearance) Assessed, Excoriation -Moisture (Marcia-wound Skin Appearance) Assessed, Maceration -Color (Marcia-wound Skin Appearance) Assessed -Temperature (Marcia-wound Skin No Abnormality Appearance) (Pt Warm) -Tenderness on Palpation (Marcia-wound Yes Skin Appearance) -Ulcer Cleansing Rinsed/ Irrigated with Saline -Foul Odor after Cleansing No -Anesthetic Used 5% Lidocaine Gel Right Calf (cm) 47 Right Ankle (cm) 28 Left Calf (cm) 48 Left Ankle (cm) 30.5 WC - Nurse 2 - General Ulcer CM Notes Start: 01/14/21 09:43 Freq: Status: Active Protocol: Activity Type Activity Date Activity User E-Sign Co-Sign Detail Recorded Client Recorded Date Recorded By Document 01/14/21 13:27 PL [id number] 01/14/21 13:28 PL 01/14/21 13:27 Wound Center Nurse 2 #2 Right Lat Lower Leg -Time 10:20 -Correct Patient Yes -Correct Side, Site, Position Yes -Correct Procedure Yes -Procedure Performed Yes -Type of Procedure Debridement -Clinical Debridement Subcutaneous -Tissue Removed Subcutaneous -Post Debridement (cm) - Length 2.0 -Post Debridement (cm) - Width 1.5 -Post Debridement (cm) - Depth 0.1 -Total Square (Post) (cm) 3.00 -Area of Debridement (cm) - Length 2.0 -Area of Debridement (cm) - Width 1.5 -Total Square (Area) (cm) 3.00 -Tunneling No -Undermining/Tunneling No -Circular Undermining No -Wound/Ulcer Outcome Not Healed -Ulcer Cleansing Rinsed/ Irrigated with Saline -Foul Odor after Cleansing No -Bioengineered Tissue No -Debridement - Subq, 1st 20sq cm Yes WC - Nurse 3 - General Ulcer D/C NN Start: 01/14/21 09:43 Freq: Status: Active Protocol: Activity Type Activity Date Activity User E-Sign Co-Sign Detail Recorded Client Recorded Date Recorded By Document 01/14/21 12:38 BARRIE [id number] 01/14/21 12:39 BARRIE 01/14/21 12:38 Wound Care Nurse 3 -Primary Dressing Applied Aquacel AG 4x4 -Primary Dressing Covered/Secured with Dry Gauze -Aquacel AG 4x4 1 Left -Multi-Layered Wrap Application Unna Boot - Bilateral ($) -Unna Boots (Bilat) ($) 2 Pain Scale: 0-10 Numeric Is Patient Pain Free? Yes WC - Visit Discharge Discharge Condition Stable Ambulatory Status Ambulatory Transportation Private Auto Additional Wound Wound debrided: Left lower extremity cluster Laterality: Left Type of Debridement: Excisional debridement Anesthesia Used: 5% Lidocaine Gel Depth: in the subcutaneous layer Percentage of wound debrided: 10 Instrument Used: 3mm curette Tissue Removed: Slough and devitalized tissue Severity: Fat Layer Exposed Amount of bleeding with debridement: Mild Bleeding Controlled with: Pressure Patient tolerated procedure: Patient tolerated procedure well Additional Wound Wound debrided: Right lower extremity cluster Laterality: Right Type of Debridement: Excisional debridement Anesthesia Used: 5% Lidocaine Gel Depth: in the subcutaneous layer Percentage of wound debrided: 10 Instrument Used: 3mm curette Tissue Removed: Slough and devitalized tissue Severity: Fat Layer Exposed Amount of bleeding with debridement: Mild Bleeding Controlled with: Pressure Patient tolerated procedure: Patient tolerated procedure well Assessment/Plan Assessment/Plan (1) Venous stasis ulcer of left lower leg with edema of left lower leg: CODE(S): I83.029 - Varicose veins of left lower extremity with ulcer of unspecified site; I83.892 - Varicose veins of left lower extremity with other complications; L97.929 - Non-pressure chronic ulcer of unspecified part of left lower leg with unspecified severity; R60.9 - Edema, unspecified (2) Ulcer of right lower extremity with fat layer exposed: CODE(S): L97.912 - Non-pressure chronic ulcer of unspecified part of right lower leg with fat layer exposed (3) Allergic drug rash: CODE(S): L27.0 - Generalized skin eruption due to drugs and medicaments taken internally (4) Bilateral lower extremity edema: CODE(S): R60.0 - Localized edema PLAN: Debridement performed today in clinic as annotated above. Aquacel Ag applied to the open ulcers of his right and left lower extremity. Bilateral Unna boots applied for the dry skin and scabbing of the bilateral lower extremities. The patient's rash was seemingly related to taking doxycycline, though his rash has worsened after he has finished this course of antibiotics. He is not currently taking any other medications. He is not experiencing any pruritus or systemic symptoms. A 2-week prednisone taper will be initiated. A referral to dermatology will be placed. Given the duration of the patient's anterior left lower extremity ulcer and failure of the wound to respond to standard wound care, we will apply for advanced skin substitutes (Puraply, Apligraf). At home wound-care instructions: Keep Unna boots clean and dry. Cover with a cast cover or plastic bag when showering, taking caution when showering to avoid slips/falls. Return on Sunday for a nurse visit to have Unna boots changed. If anytime you experience discomfort in the legs or toes while wearing the Unna boots, elevate feet. Discomfort should diminish as leg swelling improves. If you develop persistent numbness/tingling or discoloration of the toes that does not improve with leg elevation, contact the wound healing center and/or remove your Unna boots. Off-loading: The patient was instructed to avoid pressure and friction on the affected areas. Reposition every 2 hours at minimum. Avoid prolonged standing and/or dangling of legs. When seated, feet should be elevated at chest level. Frequent ambulation is encouraged. Diet: Patient encouraged to increase protein intake while taking caution to avoid high carbohydrate and/or sugar intake. Smoking: The risks of smoking and benefits of smoking cessation were discussed with the patient today. The patient is encouraged to quit smoking. If smoking cessation aids are desired, the patient should contact their primary care provider to discuss appropriate options. Labs/cultures/imaging: Left leg cultures from 01/07/2021 were positive for rare gram-positive rods, likely skin contaminant. Right leg cultures from 01/07/2021 were negative. No additional antibiotics were initiated. Routine baseline lab work ordered (CBCD, CMP, ESR, prealbumin, hemoglobin A1c). WBC and ESR normal, kidney and liver function unremarkable, blood glucose slightly elevated, hemoglobin A1c 5.5%, prealbumin low. Complete venous and arterial studies of the bilateral lower extremities ordered. These have not yet been completed. Follow-up: Patient was given a work excuse through 01/21/2021, due to the nature of his job requiring long periods of standing. He also does not feel he would be able to wear his work boots while wearing Unna boots. He is to have ordered testing completed within the next 2 weeks. Return to the clinic on Sunday for a nurse visit to have Unna boots removed and reapplied. Return to clinic in 1 week for re-evaluation. Return sooner or report to the emergency room should symptoms worsen, or new symptoms arise. Note: [employer] speech recognition fruit and vegetable parer software was used to create portions of this document. Sound-alike and misspelled words, as well as other fruit and vegetable parer errors may be contained in the documentation.
[2021-01-18 11:56] VITALS: BP 179/110; PULSE 82; RESP 22; TEMP 37.2
[2021-01-21 11:07] VITALS: BP 189/126; PULSE 78; RESP 21; TEMP 36.7
--- NOTE | 2021-01-21 14:43 | PCM.WC.PN ---
History of Present Illness Date of Service: 01/21/21 Chief Complaint: Left leg wound, rash History of Wound: Obdulio is a pleasant 55-year-old male who presents to the wound healing center for an initial evaluation of a left leg ulcer. He has a past medical history significant for hypertension and hyperlipidemia. He is a pack per day smoker and has been practically his whole life. He also consumes alcohol regularly. He is not established with a primary care provider, and does not take any medications. He previously was on medication for hypertension, but stated that these medications made him dizzy so he stopped taking them. He was also previously treated asthma or COPD with an inhaler, but does not recall specific details. He has never been diagnosed with diabetes, chronic kidney disease, or peripheral vascular disease. He states that he scraped his left leon when tripping over a hose in February 2020. Since that time he has had a wound on his left leon, which frequently scabs over then reopens. He would use triple antibiotic ointment and a gauze bandage over his wound. At one point he also used an antifungal cream, as he felt his wound may have been ringworm. He also began using alcohol wipes to clean the wound. In November 2020, he felt that the wound was becoming infected. He does report he had gone swimming in a [place] around that time. He was seen in the emergency department at [facility] on 12/27/2020. A left lower extremity venous ultrasound revealed no evidence of DVT in the left lower extremity; the left great saphenous vein appeared patent and compressible segmentally. He was started on doxycycline 100 mg twice daily x10 days. He returned to the emergency room on 01/02/2021. He states he had developed a painful rash with starting doxycycline, extending from his abdomen to his toes, but was told to continue taking the doxycycline. There is no mention of a rash in his ER documentation from 01/02/2021. He completed his course of doxycycline yesterday, and feels his rash has slightly improved since that time. He still reports discomfort in the legs. He does not feel they are more swollen than his baseline. His labs from his ER visits were grossly unremarkable aside from an elevated blood glucose. He does not use compression to his lower extremities. His job requires long hours of standing. He does not elevate his lower extremities often. He does sleep in a bed at night. The patient denies fever, chills, general malaise, or poor appetite. The patient has not had increased redness, swelling, or purulent/malodorous drainage from affected area. Progress of Wound: The patient's left leon ulcer is again significantly improved in size and appearance. He has been tolerating Aquacel Ag to the left leon ulcer well. He has been compliant with using Unna boots. His rash has significantly improved with starting prednisone. He continues to have generalized ulcer clusters of both lower extremities (from knee to ankle). Many of his lower extremity ulcers are scabbed over, some are open, and many are healed this week. The patient denies fever, chills, general malaise, or poor appetite. The patient has not had increased redness, swelling, or purulent/malodorous drainage from affected area. Objective Data Objective Data Vital Signs: Vital Signs Temp Pulse Resp BP 98.1 F 78 21 H 189/126 H 01/21/21 11:07 01/21/21 11:07 01/21/21 11:07 01/21/21 11:07 Oxygen Delivery Method Room Air Charges/Coding Procedures Integumentary [id number]: 10885 Diana subq tissue 20 sq cm/< Physical Exam Const alert, no apparent distress and healthy appearing General Appearance: cooperative, comfortable and well kempt Orientation / Consciousness: awake Nutritional Appearance: obese HEENT Head and Scalp: normocephalic and atraumatic Eyes EOMs intact bilaterally Neck supple and no JVD Resp normal respiratory effort, normal air movement and no use of accessory muscles Extremity normal capillary refill, no calf tenderness and no pedal edema General Extremity: edema bilateral lower extremity Details: mild; Negative for clubbing or cyanosis Peripheral Pulses: Yes dorsalis pedis pulses present bilateral 2+ Skin Rashes: rashes noted bilateral legs and abdomen Narrative: Generalized petechial rash of bilateral feet, legs, arms, back, and abdomen; patient reports it is painful but nonpruritic. No rash of the face. petechiae Wounds: wounds noted No malodorous Wound Narrative: Scattered scabbing and ulcerations involving the entire lower legs below the knee. No blisters present this week. Ulcers extend to the subcutaneous tissue. No tunneling, undermining, or probing to bone of ulcerations. Nontender to palpation this week, though still very tender to debridement. No significant warmth. No purulent or malodorous drainage. Left leon ulcer with subcutaneous layer exposed. Small amount of slough and devitalized tissue present. No tunneling, undermining, or probing to bone. Tender to debridement. No significant warmth. No purulent or malodorous drainage. Neuro oriented x3, moves all extremities and no focal motor deficits Psych mental status grossly normal, cooperative and affect normal Debridement Note Debridement Note Wound debrided: left leon ulcer Laterality: Left Type of Debridement: Excisional debridement Anesthesia Used: 4% Lidocaine Solution Depth: in the subcutaneous layer Percentage of wound debrided: 100 Instrument Used: 3mm curette Tissue Removed: slough and devitalized tissue Severity: Fat Layer Exposed Amount of bleeding with debridement: Mild Bleeding Controlled with: Pressure Patient tolerated procedure: Patient tolerated procedure well Post-Debridement Measurements and Additional Note: Post-Debridement Measurements/Treatment SEFERINO - Nurse 1 - General Ulcer Assessment Start: 01/14/21 09:43 Freq: Status: Active Protocol: HEVER Activity Type Activity Date Activity User E-Sign Co-Sign Detail Recorded Client Recorded Date Recorded By Document 01/14/21 12:38 AK [id number] 01/14/21 12:43 AK Document 01/18/21 11:56 MW [id number] 01/18/21 12:02 MW Document 01/21/21 11:07 ML [id number] 01/21/21 11:21 ML 01/14/21 01/18/21 01/21/21 12:38 11:56 11:07 - Today's Visit Information Type of service Follow-up Visit Nurse-only Follow-up Visit (Physician/CHARGE ACCOUNTS AUDIT CLERK Visit (Physician/CHARGE ACCOUNTS AUDIT CLERK ) ) Arrival Mode Ambulatory Ambulatory Ambulatory Transfer Assistance None None Accompanied by SELF Patient Identification Verified (Name & Yes Yes Yes ) Patient Requires Transmission-Based No No No Precautions Safety Precautions NA NA NA Vital Signs Temperature (97.8 F-99.1 F) 97.4 F L 98.9 F 98.1 F Temperature Source Temporal Temporal Temporal Pulse Rate (60-100) 68 82 78 Pulse Location Monitor Monitor Monitor Respiratory Rate (12-18) 22 H 21 H Respiratory rate source Observation Observation Oxygen Delivery Method Room Air Blood Pressure (90/60-120/80) 150/98 H 179/110 H 189/126 H Blood Pressure Mean (mm Hg) 115 133 147 Source Monitor Monitor Monitor Position Sitting Sitting Blood Pressure Location Right Arm Right Arm History Since Last Visit- (Skip if this is Patient's initial visit) Have you changed medications since your No No No last visit? Any new allergies or adverse reactions No No No Had a fall/change in ADL's that may No No No increase risk of falls Signs or symptoms of abuse and/or No No No neglect since last visit Have you been in the hospital since your No No No last visit? Has dressing in place as prescribed Yes Yes Yes Has compression in place as prescribed N/A No N/A Has offloadiing in place as prescribed N/A N/A N/A Experienced any changes in pain level or No No No management Left Footwear Regular Shoe Regular Shoe Regular Shoe Right Footwear Regular Shoe Regular Shoe Regular Shoe Pain Scale: 0-10 Numeric Is Patient Pain Free? Yes Yes WC - Nurse 1 - General Ulcer Measurement Start: 01/14/21 09:43 Freq: Status: Active Protocol: Activity Type Activity Date Activity User E-Sign Co-Sign Detail Recorded Client Recorded Date Recorded By Document 01/14/21 12:38 AK [id number] 01/14/21 12:43 AK Document 01/18/21 11:56 MW [id number] 01/18/21 12:02 MW Document 01/21/21 11:07 ML [id number] 01/21/21 11:21 ML 01/14/21 01/18/21 01/21/21 12:38 11:56 11:07 Wound Center Nurse 1 #2 Right Lat Lower Leg -Combined with other wound No No -Current Size (cm) - Length 12 2 -Current Size (cm) - Width 14 10 -Current Size (cm) - Depth 0.1 0.1 -Total Square Cm 168 20 -Photo Taken No -Tunneling No -Undermining/Tunneling No -Circular Undermining No -Change in Wound Grade/Stage No -Exudate Amt Medium Small -Exudate Type Serosanguineous Serosanguineous -Wound Margin Distinct, Distinct, Outline Outline Attached Attached -Granulation Amt Medium (34-66%) Medium (34-66%) -Granulation Quality [place],Red -Slough/Fibrin Yes Yes -Necrosis Amt Medium (34-66%) Medium (34-66%) -Necrotic Tissue Type Adherent Slough Adherent Slough -Structure Exposed N/A -Texture (Marcia-wound Skin Appearance) No Abnormality, Assessed Assessed -Moisture (Marcia-wound Skin Appearance) Assessed, Assessed,Dry/ Maceration Scaly -Color (Marcia-wound Skin Appearance) No Abnormality, Assessed Assessed, Hemosiderin Staining -Temperature (Marcia-wound Skin No Abnormality Appearance) (Pt Warm) -Tenderness on Palpation (Marcia-wound No Skin Appearance) -Ulcer Cleansing Soap and Water Soap and Water -Foul Odor after Cleansing No No -Anesthetic Used 5% Lidocaine 4% Lidocaine Gel Solution #1 left leon -Combined with other wound No -Current Size (cm) - Length 19 1 -Current Size (cm) - Width 23 1.5 -Current Size (cm) - Depth 0.1 0.1 -Total Square Cm 437 1.5 -Photo Taken No -Tunneling No -Undermining/Tunneling No -Circular Undermining No -Classification - Thickness Partial Thickness -Change in Wound Grade/Stage No -Exudate Amt Medium Small -Exudate Type Serosanguineous Serosanguineous -Wound Margin Distinct, Distinct, Outline Outline Attached Attached -Granulation Amt Medium (34-66%) Small (1-33%) -Granulation Quality [place],Red -Slough/Fibrin Yes Yes -Necrosis Amt Medium (34-66%) Small (1-33%) -Necrotic Tissue Type Adherent Slough Adherent Slough -Structure Exposed N/A -Texture (Marcia-wound Skin Appearance) Assessed, Assessed Excoriation -Moisture (Marcia-wound Skin Appearance) Assessed, Assessed,Dry/ Maceration Scaly -Color (Marcia-wound Skin Appearance) Assessed Assessed -Temperature (Marcia-wound Skin No Abnormality No Abnormality Appearance) (Pt Warm) (Pt Warm) -Tenderness on Palpation (Marcia-wound Yes No Skin Appearance) -Ulcer Cleansing Rinsed/ Soap and Water Irrigated with Saline -Foul Odor after Cleansing No No -Anesthetic Used 5% Lidocaine 4% Lidocaine Gel Solution Lower Limb Edema Present Yes Right Calf (cm) 47 49.2 Right Ankle (cm) 28 28.0 Left Calf (cm) 48 49.0 Left Ankle (cm) 30.5 29.5 WC - Nurse 2 - General Ulcer CM Notes Start: 01/14/21 09:43 Freq: Status: Active Protocol: Activity Type Activity Date Activity User E-Sign Co-Sign Detail Recorded Client Recorded Date Recorded By Document 01/14/21 13:27 PL [id number] 01/14/21 13:28 PL Document 01/21/21 13:06 PL [id number] 01/21/21 13:10 PL 01/14/21 01/21/21 13:27 13:06 Wound Center Nurse 2 #3 Left Calf -Time 11:44 -Correct Patient Yes -Correct Side, Site, Position Yes -Correct Procedure Yes -Procedure Performed Yes -Type of Procedure Debridement -Clinical Debridement Subcutaneous -Tissue Removed Subcutaneous -Post Debridement (cm) - Length 1.5 -Post Debridement (cm) - Width 1.0 -Post Debridement (cm) - Depth 0.1 -Total Square (Post) (cm) 1.50 -Area of Debridement (cm) - Length 1.5 -Area of Debridement (cm) - Width 1.0 -Total Square (Area) (cm) 1.50 -Tunneling No -Circular Undermining No -Wound/Ulcer Outcome Not Healed -Ulcer Cleansing Rinsed/ Irrigated with Saline -Foul Odor after Cleansing No -Bioengineered Tissue No -Bleeding Controlled with Pressure -Treatment Response Procedure Tolerated Well -Debridement - Subq, 1st 20sq cm No #2 Right Lat Lower Leg -Time 10:20 11:44 -Correct Patient Yes Yes -Correct Side, Site, Position Yes Yes -Correct Procedure Yes Yes -Procedure Performed Yes Yes -Type of Procedure Debridement Debridement -Clinical Debridement Subcutaneous Subcutaneous -Tissue Removed Subcutaneous Subcutaneous -Post Debridement (cm) - Length 2.0 48 -Post Debridement (cm) - Width 1.5 32 -Post Debridement (cm) - Depth 0.1 0.1 -Total Square (Post) (cm) 3.00 1536 -Area of Debridement (cm) - Length 2.0 4.8 -Area of Debridement (cm) - Width 1.5 3.2 -Total Square (Area) (cm) 3.00 15.36 -Tunneling No No -Undermining/Tunneling No No -Circular Undermining No No -Wound/Ulcer Outcome Not Healed -Ulcer Cleansing Rinsed/ Rinsed/ Irrigated with Irrigated with Saline Saline -Foul Odor after Cleansing No No -Bioengineered Tissue No No -Bleeding Controlled with Pressure -Treatment Response Procedure Tolerated Well -Debridement - Subq, 1st 20sq cm Yes Yes -Debridement, SubQ, ea addt'l 20sq cm 1 or part thereof #1 left leon -Time 11:44 -Correct Patient Yes -Correct Side, Site, Position Yes -Correct Procedure Yes -Procedure Performed Yes -Type of Procedure Debridement -Clinical Debridement Subcutaneous -Tissue Removed Subcutaneous -Post Debridement (cm) - Length 48.0 -Post Debridement (cm) - Width 22.0 -Post Debridement (cm) - Depth 0.1 -Total Square (Post) (cm) 1056.00 -Area of Debridement (cm) - Length 4.8 -Area of Debridement (cm) - Width 2.2 -Total Square (Area) (cm) 10.56 -Tunneling No -Undermining/Tunneling No -Circular Undermining No -Wound/Ulcer Outcome Not Healed -Ulcer Cleansing Rinsed/ Irrigated with Saline -Foul Odor after Cleansing No -Bioengineered Tissue No -Bleeding Controlled with Pressure -Treatment Response Procedure Tolerated Well -Debridement - Subq, 1st 20sq cm No WC - Nurse 3 - General Ulcer D/C NN Start: 01/14/21 09:43 Freq: Status: Active Protocol: Activity Type Activity Date Activity User E-Sign Co-Sign Detail Recorded Client Recorded Date Recorded By Document 01/14/21 12:38 AK [id number] 01/14/21 12:39 AK Document 01/18/21 11:56 MW [id number] 01/18/21 12:02 MW Document 01/21/21 12:41 AK [id number] 01/21/21 12:42 AK 01/14/21 01/18/21 01/21/21 12:38 11:56 12:41 Wound Care Nurse 3 #2 Right Lat Lower Leg -Ulcer Cleansing Soap and Water Rinsed/ Irrigated with Saline -Foul Odor after Cleansing No No -Negative Pressure Wound Therapy N/A N/A -Primary Dressing Applied Aquacel AG 4x4 Aquacel AG 4x4 -Primary Dressing Covered/Secured with Dry Gauze -Other Covering UNNA -Aquacel AG 4x4 1 1 #1 left leon -Ulcer Cleansing Soap and Water Rinsed/ Irrigated with Saline -Foul Odor after Cleansing No -Negative Pressure Wound Therapy N/A -Primary Dressing Applied Aquacel AG 4x4 -Other Covering UNNA -Aquacel AG 4x4 0 Left -Lotion applied to leg before No compression wrap -Multi-Layered Wrap Application Unna Boot - Unna Boot - Unna Boot - Bilateral ($) Bilateral ($) Bilateral ($) -Unna Boots (Bilat) ($) 2 2 2 Treatment Response Procedure Tolerated Well Vital Signs Temperature (97.8 F-99.1 F) 98.9 F Temperature Source Temporal Pulse Rate (60-100) 82 Pulse Location Monitor Respiratory Rate (12-18) 22 H Respiratory rate source Observation Oxygen Delivery Method Room Air Blood Pressure (90/60-120/80) 179/110 H Blood Pressure Mean (mm Hg) 133 Source Monitor Position Sitting Blood Pressure Location Right Arm Pain Scale: 0-10 Numeric Is Patient Pain Free? Yes Yes WC - Visit Discharge Discharge Condition Stable Stable Stable Ambulatory Status Ambulatory Ambulatory Ambulatory Transportation Private Auto Private Auto Private Auto Accompanied by SELF Medication Reconcilliation completed & No No provided to patient/care provider Clinical Summary of Care Provided Yes Yes Additional Wound Wound debrided: left leg ulcer cluster Laterality: Left Type of Debridement: Excisional debridement Anesthesia Used: 4% Lidocaine Solution Depth: in the subcutaneous layer Percentage of wound debrided: 10 Instrument Used: 3mm curette Tissue Removed: slough and devitalized tissue Severity: Fat Layer Exposed Amount of bleeding with debridement: Mild Bleeding Controlled with: Pressure Patient tolerated procedure: Patient tolerated procedure well Additional Wound Wound debrided: right leg ulcer cluster Laterality: Right Type of Debridement: Excisional debridement Anesthesia Used: 4% Lidocaine Solution Depth: in the subcutaneous layer Percentage of wound debrided: 20 Instrument Used: 3mm curette Tissue Removed: slough and devitalized tissue Severity: Fat Layer Exposed Amount of bleeding with debridement: Mild Bleeding Controlled with: Pressure Patient tolerated procedure: Patient tolerated procedure well Assessment/Plan Assessment/Plan (1) Venous stasis ulcer of left lower leg with edema of left lower leg: CODE(S): I83.029 - Varicose veins of left lower extremity with ulcer of unspecified site; I83.892 - Varicose veins of left lower extremity with other complications; L97.929 - Non-pressure chronic ulcer of unspecified part of left lower leg with unspecified severity; R60.9 - Edema, unspecified (2) Ulcer of right lower extremity with fat layer exposed: CODE(S): L97.912 - Non-pressure chronic ulcer of unspecified part of right lower leg with fat layer exposed (3) Allergic drug rash: CODE(S): L27.0 - Generalized skin eruption due to drugs and medicaments taken internally (4) Bilateral lower extremity edema: CODE(S): R60.0 - Localized edema PLAN: Debridement performed today in clinic as annotated above. Aquacel Ag applied to the open ulcers of his right and left lower extremities. Bilateral Unna boots applied for the dry skin and scabbing of the bilateral lower extremities. Patient is responding well to prednisone taper, and this will be continued. Given the duration of the patient's anterior left lower extremity ulcer and failure of the wound to respond to standard wound care, we will apply for advanced skin substitutes (Puraply, Apligraf). Per Mani JOHNSTON RN, these were denied. At home wound-care instructions: Keep Unna boots clean and dry. Cover with a cast cover or plastic bag when showering, taking caution when showering to avoid slips/falls. Return on Sunday for a nurse visit to have Unna boots changed. If anytime you experience discomfort in the legs or toes while wearing the Unna boots, elevate feet. Discomfort should diminish as leg swelling improves. If you develop persistent numbness/tingling or discoloration of the toes that does not improve with leg elevation, contact the wound healing center and/or remove your Unna boots. Off-loading: The patient was instructed to avoid pressure and friction on the affected areas. Reposition every 2 hours at minimum. Avoid prolonged standing and/or dangling of legs. When seated, feet should be elevated at chest level. Frequent ambulation is encouraged. Diet: Patient encouraged to increase protein intake while taking caution to avoid high carbohydrate and/or sugar intake. Smoking: The risks of smoking and benefits of smoking cessation were discussed with the patient today. The patient is encouraged to quit smoking. If smoking cessation aids are desired, the patient should contact their primary care provider to discuss appropriate options. Labs/cultures/imaging: Left leg cultures from 01/07/2021 were positive for rare gram-positive rods, likely skin contaminant. Right leg cultures from 01/07/2021 were negative. No additional antibiotics were initiated. Routine baseline lab work ordered (CBCD, CMP, ESR, prealbumin, hemoglobin A1c). WBC and ESR normal, kidney and liver function unremarkable, blood glucose slightly elevated, hemoglobin A1c 5.5%, prealbumin low. Complete venous and arterial studies of the bilateral lower extremities ordered. These have not yet been completed. Follow-up: Patient was given another work excuse through 01/28/2021, due to the nature of his job requiring long periods of standing. He also does not feel he would be able to wear his work boots while wearing Unna boots, or keep Unna boots clean/dry. Return to the clinic on Sunday for a nurse visit to have Unna boots removed and reapplied. Return to clinic in 1 week for re-evaluation. Return sooner or report to the emergency room should symptoms worsen, or new symptoms arise. He will be referred to [facility] to establish a primary care provider for management of his hypertension. Note: Matthew [employer] speech recognition physical medicine specialist software was used to create portions of this document. Sound-alike and misspelled words, as well as other physical medicine specialist errors may be contained in the documentation.
[2021-01-25 12:12] VITALS: BP 130/74; PULSE 72; TEMP 35.7
[2021-01-28 09:43] VITALS: BP 157/101; PULSE 109; TEMP 35.5
--- NOTE | 2021-01-28 12:31 | PCM.WC.PN ---
History of Present Illness Date of Service: 01/28/21 Chief Complaint: Left leg wound, rash History of Wound: Obdulio is a pleasant 55-year-old male who presents to the wound healing center for an initial evaluation of a left leg ulcer. He has a past medical history significant for hypertension and hyperlipidemia. He is a pack per day smoker and has been practically his whole life. He also consumes alcohol regularly. He is not established with a primary care provider, and does not take any medications. He previously was on medication for hypertension, but stated that these medications made him dizzy so he stopped taking them. He was also previously treated asthma or COPD with an inhaler, but does not recall specific details. He has never been diagnosed with diabetes, chronic kidney disease, or peripheral vascular disease. He states that he scraped his left leon when tripping over a hose in February 2020. Since that time he has had a wound on his left leon, which frequently scabs over then reopens. He would use triple antibiotic ointment and a gauze bandage over his wound. At one point he also used an antifungal cream, as he felt his wound may have been ringworm. He also began using alcohol wipes to clean the wound. In November 2020, he felt that the wound was becoming infected. He does report he had gone swimming in a [place] around that time. He was seen in the emergency department at [facility] on 12/27/2020. A left lower extremity venous ultrasound revealed no evidence of DVT in the left lower extremity; the left great saphenous vein appeared patent and compressible segmentally. He was started on doxycycline 100 mg twice daily x10 days. He returned to the emergency room on 01/02/2021. He states he had developed a painful rash with starting doxycycline, extending from his abdomen to his toes, but was told to continue taking the doxycycline. There is no mention of a rash in his ER documentation from 01/02/2021. He completed his course of doxycycline yesterday, and feels his rash has slightly improved since that time. He still reports discomfort in the legs. He does not feel they are more swollen than his baseline. His labs from his ER visits were grossly unremarkable aside from an elevated blood glucose. He does not use compression to his lower extremities. His job requires long hours of standing. He does not elevate his lower extremities often. He does sleep in a bed at night. The patient denies fever, chills, general malaise, or poor appetite. The patient has not had increased redness, swelling, or purulent/malodorous drainage from affected area. Progress of Wound: The patient's left leon ulcer is healed today. He has been compliant with using Unna boots. His rash has significantly improved with prednisone, and he has 2 days left of his taper. He continues to have generalized ulcer clusters of both lower extremities (from knee to ankle). Many of his lower extremity ulcers are scabbed over, some are open, and many are healed this week. The patient denies fever, chills, general malaise, or poor appetite. The patient has not had increased redness, swelling, or purulent/malodorous drainage from affected area. He continues to have significant discomfort in the bilateral legs. Objective Data Objective Data Vital Signs: Vital Signs Temp Pulse Resp BP 95.9 F L 109 H 21 H 157/101 H 01/28/21 09:43 01/28/21 09:43 01/21/21 11:07 01/28/21 09:43 Oxygen Delivery Method Room Air Charges/Coding Procedures Integumentary [id number]: [id number] Diana subq tissue 20 sq cm/< Physical Exam Const alert, no apparent distress and healthy appearing General Appearance: cooperative, comfortable and well kempt Orientation / Consciousness: awake Nutritional Appearance: obese HEENT Head and Scalp: normocephalic and atraumatic Resp normal respiratory effort Extremity normal capillary refill and no calf tenderness General Extremity: edema bilateral lower extremity Details: mild; Negative for clubbing or cyanosis Peripheral Pulses: Yes dorsalis pedis pulses present bilateral 2+ Skin Rashes: rashes noted bilateral legs and abdomen Narrative: Generalized petechial rash of bilateral feet, legs, arms, back, and abdomen; patient reports it is painful but nonpruritic. No rash of the face. petechiae Wounds: wounds noted No malodorous Wound Narrative: Scattered scabbing and ulcerations involving the entire lower legs below the knee. No blisters present this week. Ulcers extend to the subcutaneous tissue. No tunneling, undermining, or probing to bone of ulcerations. Nontender to palpation this week, though still very tender to debridement. No significant warmth. Small amount of purulent drainage noted, and he has weaver crusting of several of his ulcers. Left leon ulcer is healed today. Neuro oriented x3, moves all extremities and no focal motor deficits Psych mental status grossly normal, cooperative and affect normal Debridement Note Debridement Note Wound debrided: Left leg ulcer cluster Laterality: Left Type of Debridement: Excisional debridement Anesthesia Used: 4% Lidocaine Solution Depth: in the subcutaneous layer Percentage of wound debrided: 20 Instrument Used: 3mm curette Tissue Removed: Slough and devitalized tissue Severity: Fat Layer Exposed Amount of bleeding with debridement: Mild Bleeding Controlled with: Pressure Patient tolerated procedure: Patient did not tolerate procedure well Post-Debridement Measurements and Additional Note: Post-Debridement Measurements/Treatment - Nurse 1 - General Ulcer Assessment Start: 01/14/21 09:43 Freq: Status: Active Protocol: HEVER Activity Type Activity Date Activity User E-Sign Co-Sign Detail Recorded Client Recorded Date Recorded By Document 01/14/21 12:38 AK [id number] 01/14/21 12:43 AK Document 01/18/21 11:56 MW [id number] 01/18/21 12:02 MW Document 01/21/21 11:07 ML [id number] 01/21/21 11:21 ML Document 01/25/21 12:12 AK [id number] 01/25/21 12:13 AK Document 01/28/21 09:43 AK Desktop 01/28/21 09:51 AK 01/14/21 01/18/21 01/21/21 12:38 11:56 11:07 - Today's Visit Information Type of service Follow-up Visit Nurse-only Follow-up Visit (Physician/FRUIT DUMPER Visit (Physician/FRUIT DUMPER ) ) Arrival Mode Ambulatory Ambulatory Ambulatory Transfer Assistance None None Accompanied by SELF Patient Identification Verified (Name & Yes Yes Yes ) Patient Requires Transmission-Based No No No Precautions Safety Precautions NA NA NA Vital Signs Temperature (97.8 F-99.1 F) 97.4 F L 98.9 F 98.1 F Temperature Source Temporal Temporal Temporal Pulse Rate (60-100) 68 82 78 Pulse Location Monitor Monitor Monitor Respiratory Rate (12-18) 22 H 21 H Respiratory rate source Observation Observation Oxygen Delivery Method Room Air Blood Pressure (90/60-120/80) 150/98 H 179/110 H 189/126 H Blood Pressure Mean (mm Hg) 115 133 147 Source Monitor Monitor Monitor Position Sitting Sitting Blood Pressure Location Right Arm Right Arm History Since Last Visit- (Skip if this is Patient's initial visit) Have you changed medications since your No No No last visit? Any new allergies or adverse reactions No No No Had a fall/change in ADL's that may No No No increase risk of falls Signs or symptoms of abuse and/or No No No neglect since last visit Have you been in the hospital since your No No No last visit? Has dressing in place as prescribed Yes Yes Yes Has compression in place as prescribed N/A No N/A Has offloadiing in place as prescribed N/A N/A N/A Experienced any changes in pain level or No No No management Left Footwear Regular Shoe Regular Shoe Regular Shoe Right Footwear Regular Shoe Regular Shoe Regular Shoe Pain Scale: 0-10 Numeric Is Patient Pain Free? Yes Yes 01/25/21 01/28/21 12:12 09:43 WC - Today's Visit Information Type of service Nurse-only Follow-up Visit Visit (Physician/FRUIT DUMPER ) Arrival Mode Ambulatory Ambulatory Transfer Assistance Accompanied by Patient Identification Verified (Name & Yes Yes ) Patient Requires Transmission-Based No Precautions Safety Precautions NA Vital Signs Temperature (97.8 F-99.1 F) 96.3 F L 95.9 F L Temperature Source Temporal Temporal Pulse Rate (60-100) 72 109 H Pulse Location Monitor Monitor Respiratory Rate (12-18) Respiratory rate source Oxygen Delivery Method Blood Pressure (90/60-120/80) 130/74 H 157/101 H Blood Pressure Mean (mm Hg) 92 119 Source Monitor Monitor Position Semi-Fowlers Sitting Blood Pressure Location Right Arm Right Arm History Since Last Visit- (Skip if this is Patient's initial visit) Have you changed medications since your No No last visit? Any new allergies or adverse reactions No No Had a fall/change in ADL's that may No No increase risk of falls Signs or symptoms of abuse and/or No No neglect since last visit Have you been in the hospital since your No No last visit? Has dressing in place as prescribed Yes Yes Has compression in place as prescribed Yes Yes Has offloadiing in place as prescribed N/A N/A Experienced any changes in pain level or No No management Left Footwear Regular Shoe Regular Shoe Right Footwear Regular Shoe Regular Shoe Pain Scale: 0-10 Numeric Is Patient Pain Free? Yes Yes WC - Nurse 1 - General Ulcer Measurement Start: 01/14/21 09:43 Freq: Status: Active Protocol: Activity Type Activity Date Activity User E-Sign Co-Sign Detail Recorded Client Recorded Date Recorded By Document 01/14/21 12:38 AK [id number] 01/14/21 12:43 AK Document 01/18/21 11:56 MW [id number] 01/18/21 12:02 MW Document 01/21/21 11:07 ML [id number] 01/21/21 11:21 ML Document 01/28/21 09:43 AK Desktop 01/28/21 09:51 AK 01/14/21 01/18/21 01/21/21 12:38 11:56 11:07 Wound Center Nurse 1 #3 Left Calf -Current Size (cm) - Length -Current Size (cm) - Width -Current Size (cm) - Depth -Total Square Cm -Exudate Amt -Exudate Type -Wound Margin -Granulation Amt -Granulation Quality -Necrosis Amt -Necrotic Tissue Type -Texture (Marcia-wound Skin Appearance) -Moisture (Marcia-wound Skin Appearance) -Color (Marcia-wound Skin Appearance) -Temperature (Marcia-wound Skin Appearance) -Tenderness on Palpation (Marcia-wound Skin Appearance) -Ulcer Cleansing -Foul Odor after Cleansing -Anesthetic Used #2 Right Lat Lower Leg -Combined with other wound No No -Current Size (cm) - Length 12 2 -Current Size (cm) - Width 14 10 -Current Size (cm) - Depth 0.1 0.1 -Total Square Cm 168 20 -Photo Taken No -Tunneling No -Undermining/Tunneling No -Circular Undermining No -Change in Wound Grade/Stage No -Exudate Amt Medium Small -Exudate Type Serosanguineous Serosanguineous -Wound Margin Distinct, Distinct, Outline Outline Attached Attached -Granulation Amt Medium (34-66%) Medium (34-66%) -Granulation Quality [place],Red -Slough/Fibrin Yes Yes -Necrosis Amt Medium (34-66%) Medium (34-66%) -Necrotic Tissue Type Adherent Slough Adherent Slough -Structure Exposed N/A -Texture (Marcia-wound Skin Appearance) No Abnormality, Assessed Assessed -Moisture (Marcia-wound Skin Appearance) Assessed, Assessed,Dry/ Maceration Scaly -Color (Marcia-wound Skin Appearance) No Abnormality, Assessed Assessed, Hemosiderin Staining -Temperature (Marcia-wound Skin No Abnormality Appearance) (Pt Warm) -Tenderness on Palpation (Marcia-wound No Skin Appearance) -Ulcer Cleansing Soap and Water Soap and Water -Foul Odor after Cleansing No No -Anesthetic Used 5% Lidocaine 4% Lidocaine Gel Solution #1 left leon -Combined with other wound No -Current Size (cm) - Length 19 1 -Current Size (cm) - Width 23 1.5 -Current Size (cm) - Depth 0.1 0.1 -Total Square Cm 437 1.5 -Photo Taken No -Tunneling No -Undermining/Tunneling No -Circular Undermining No -Classification - Thickness Partial Thickness -Change in Wound Grade/Stage No -Exudate Amt Medium Small -Exudate Type Serosanguineous Serosanguineous -Wound Margin Distinct, Distinct, Outline Outline Attached Attached -Granulation Amt Medium (34-66%) Small (1-33%) -Granulation Quality [place],Red -Slough/Fibrin Yes Yes -Necrosis Amt Medium (34-66%) Small (1-33%) -Necrotic Tissue Type Adherent Slough Adherent Slough -Structure Exposed N/A -Texture (Marcia-wound Skin Appearance) Assessed, Assessed Excoriation -Moisture (Marcia-wound Skin Appearance) Assessed, Assessed,Dry/ Maceration Scaly -Color (Marcia-wound Skin Appearance) Assessed Assessed -Temperature (Marcia-wound Skin No Abnormality No Abnormality Appearance) (Pt Warm) (Pt Warm) -Tenderness on Palpation (Marcia-wound Yes No Skin Appearance) -Ulcer Cleansing Rinsed/ Soap and Water Irrigated with Saline -Foul Odor after Cleansing No No -Anesthetic Used 5% Lidocaine 4% Lidocaine Gel Solution Lower Limb Edema Present Yes Right Calf (cm) 47 49.2 Right Ankle (cm) 28 28.0 Left Calf (cm) 48 49.0 Left Ankle (cm) 30.5 29.5 01/28/21 09:43 Wound Center Nurse 1 #3 Left Calf -Current Size (cm) - Length 17 -Current Size (cm) - Width 4 -Current Size (cm) - Depth 0.1 -Total Square Cm 68 -Exudate Amt Small -Exudate Type Serosanguineous -Wound Margin Distinct, Outline Attached -Granulation Amt Medium (34-66%) -Granulation Quality Red -Necrosis Amt Medium (34-66%) -Necrotic Tissue Type Adherent Slough -Texture (Marcia-wound Skin Appearance) Assessed, Scarring -Moisture (Marcia-wound Skin Appearance) No Abnormality, Assessed -Color (Marcia-wound Skin Appearance) No Abnormality, Assessed -Temperature (Marcia-wound Skin No Abnormality Appearance) (Pt Warm) -Tenderness on Palpation (Marcia-wound No Skin Appearance) -Ulcer Cleansing Rinsed/ Irrigated with Saline -Foul Odor after Cleansing No -Anesthetic Used 4% Lidocaine Solution #2 Right Lat Lower Leg -Combined with other wound -Current Size (cm) - Length 22 -Current Size (cm) - Width 18 -Current Size (cm) - Depth 0.1 -Total Square Cm 396 -Photo Taken -Tunneling -Undermining/Tunneling -Circular Undermining -Change in Wound Grade/Stage -Exudate Amt Small -Exudate Type Serosanguineous -Wound Margin Distinct, Outline Attached -Granulation Amt Medium (34-66%) -Granulation Quality Red -Slough/Fibrin -Necrosis Amt Medium (34-66%) -Necrotic Tissue Type Adherent Slough -Structure Exposed -Texture (Marcia-wound Skin Appearance) Assessed, Scarring -Moisture (Marcia-wound Skin Appearance) No Abnormality, Assessed -Color (Marcia-wound Skin Appearance) No Abnormality, Assessed -Temperature (Marcia-wound Skin No Abnormality Appearance) (Pt Warm) -Tenderness on Palpation (Marcia-wound No Skin Appearance) -Ulcer Cleansing Rinsed/ Irrigated with Saline -Foul Odor after Cleansing No -Anesthetic Used 4% Lidocaine Solution #1 left leon -Combined with other wound -Current Size (cm) - Length -Current Size (cm) - Width -Current Size (cm) - Depth -Total Square Cm -Photo Taken -Tunneling -Undermining/Tunneling -Circular Undermining -Classification - Thickness -Change in Wound Grade/Stage -Exudate Amt -Exudate Type -Wound Margin -Granulation Amt -Granulation Quality -Slough/Fibrin -Necrosis Amt -Necrotic Tissue Type -Structure Exposed -Texture (Marcia-wound Skin Appearance) -Moisture (Marcia-wound Skin Appearance) -Color (Marcia-wound Skin Appearance) -Temperature (Marcia-wound Skin Appearance) -Tenderness on Palpation (Mracia-wound Skin Appearance) -Ulcer Cleansing -Foul Odor after Cleansing -Anesthetic Used Lower Limb Edema Present Right Calf (cm) 47 Right Ankle (cm) 27.5 Left Calf (cm) 46.5 Left Ankle (cm) 28 - Nurse 2 - General Ulcer CM Notes Start: 01/14/21 09:43 Freq: Status: Active Protocol: Activity Type Activity Date Activity User E-Sign Co-Sign Detail Recorded Client Recorded Date Recorded By Document 01/14/21 13:27 PL [id number] 01/14/21 13:28 PL Document 01/21/21 13:06 PL [id number] 01/21/21 13:10 PL 01/14/21 01/21/21 13:27 13:06 Wound Center Nurse 2 #3 Left Calf -Time 11:44 -Correct Patient Yes -Correct Side, Site, Position Yes -Correct Procedure Yes -Procedure Performed Yes -Type of Procedure Debridement -Clinical Debridement Subcutaneous -Tissue Removed Subcutaneous -Post Debridement (cm) - Length 1.5 -Post Debridement (cm) - Width 1.0 -Post Debridement (cm) - Depth 0.1 -Total Square (Post) (cm) 1.50 -Area of Debridement (cm) - Length 1.5 -Area of Debridement (cm) - Width 1.0 -Total Square (Area) (cm) 1.50 -Tunneling No -Circular Undermining No -Wound/Ulcer Outcome Not Healed -Ulcer Cleansing Rinsed/ Irrigated with Saline -Foul Odor after Cleansing No -Bioengineered Tissue No -Bleeding Controlled with Pressure -Treatment Response Procedure Tolerated Well -Debridement - Subq, 1st 20sq cm No #2 Right Lat Lower Leg -Time 10:20 11:44 -Correct Patient Yes Yes -Correct Side, Site, Position Yes Yes -Correct Procedure Yes Yes -Procedure Performed Yes Yes -Type of Procedure Debridement Debridement -Clinical Debridement Subcutaneous Subcutaneous -Tissue Removed Subcutaneous Subcutaneous -Post Debridement (cm) - Length 2.0 48 -Post Debridement (cm) - Width 1.5 32 -Post Debridement (cm) - Depth 0.1 0.1 -Total Square (Post) (cm) 3.00 1536 -Area of Debridement (cm) - Length 2.0 4.8 -Area of Debridement (cm) - Width 1.5 3.2 -Total Square (Area) (cm) 3.00 15.36 -Tunneling No No -Undermining/Tunneling No No -Circular Undermining No No -Wound/Ulcer Outcome Not Healed -Ulcer Cleansing Rinsed/ Rinsed/ Irrigated with Irrigated with Saline Saline -Foul Odor after Cleansing No No -Bioengineered Tissue No No -Bleeding Controlled with Pressure -Treatment Response Procedure Tolerated Well -Debridement - Subq, 1st 20sq cm Yes Yes -Debridement, SubQ, ea addt'l 20sq cm 1 or part thereof #1 left leon -Time 11:44 -Correct Patient Yes -Correct Side, Site, Position Yes -Correct Procedure Yes -Procedure Performed Yes -Type of Procedure Debridement -Clinical Debridement Subcutaneous -Tissue Removed Subcutaneous -Post Debridement (cm) - Length 48.0 -Post Debridement (cm) - Width 22.0 -Post Debridement (cm) - Depth 0.1 -Total Square (Post) (cm) 1056.00 -Area of Debridement (cm) - Length 4.8 -Area of Debridement (cm) - Width 2.2 -Total Square (Area) (cm) 10.56 -Tunneling No -Undermining/Tunneling No -Circular Undermining No -Wound/Ulcer Outcome Not Healed -Ulcer Cleansing Rinsed/ Irrigated with Saline -Foul Odor after Cleansing No -Bioengineered Tissue No -Bleeding Controlled with Pressure -Treatment Response Procedure Tolerated Well -Debridement - Subq, 1st 20sq cm No WC - Nurse 3 - General Ulcer D/C NN Start: 01/14/21 09:43 Freq: Status: Active Protocol: Activity Type Activity Date Activity User E-Sign Co-Sign Detail Recorded Client Recorded Date Recorded By Document 01/14/21 12:38 AK [id number] 01/14/21 12:39 AK Document 01/18/21 11:56 MW [id number] 01/18/21 12:02 MW Document 01/21/21 12:41 AK [id number] 01/21/21 12:42 AK Document 01/25/21 12:13 AK [id number] 01/25/21 12:14 AK Document 01/28/21 10:33 KR Desktop 01/28/21 10:33 KR 01/14/21 01/18/21 01/21/21 12:38 11:56 12:41 Wound Care Nurse 3 #3 Left Calf -Primary Dressing Applied -Primary Dressing Covered/Secured with -Aquacel AG 4x4 #2 Right Lat Lower Leg -Ulcer Cleansing Soap and Water Rinsed/ Irrigated with Saline -Foul Odor after Cleansing No No -Negative Pressure Wound Therapy N/A N/A -Primary Dressing Applied Aquacel AG 4x4 Aquacel AG 4x4 -Primary Dressing Covered/Secured with Dry Gauze -Other Covering UNNA -Aquacel AG 4x4 1 1 #1 left leon -Ulcer Cleansing Soap and Water Rinsed/ Irrigated with Saline -Foul Odor after Cleansing No -Negative Pressure Wound Therapy N/A -Primary Dressing Applied Aquacel AG 4x4 -Other Covering UNNA -Aquacel AG 4x4 0 Left -Lotion applied to leg before No compression wrap -Multi-Layered Wrap Application Unna Boot - Unna Boot - Unna Boot - Bilateral ($) Bilateral ($) Bilateral ($) -Unna Boots (Bilat) ($) 2 2 2 Treatment Response Procedure Tolerated Well Vital Signs Temperature (97.8 F-99.1 F) 98.9 F Temperature Source Temporal Pulse Rate (60-100) 82 Pulse Location Monitor Respiratory Rate (12-18) 22 H Respiratory rate source Observation Oxygen Delivery Method Room Air Blood Pressure (90/60-120/80) 179/110 H Blood Pressure Mean (mm Hg) 133 Source Monitor Position Sitting Blood Pressure Location Right Arm Pain Scale: 0-10 Numeric Is Patient Pain Free? Yes Yes WC - Visit Discharge Discharge Condition Stable Stable Stable Ambulatory Status Ambulatory Ambulatory Ambulatory Transportation Private Auto Private Auto Private Auto Accompanied by SELF Medication Reconcilliation completed & No No provided to patient/care provider Clinical Summary of Care Provided Yes Yes 01/25/21 01/28/21 12:13 10:33 Wound Care Nurse 3 #3 Left Calf -Primary Dressing Applied Aquacel AG 4x4 -Primary Dressing Covered/Secured with Dry Gauze -Aquacel AG 4x4 1 #2 Right Lat Lower Leg -Ulcer Cleansing -Foul Odor after Cleansing -Negative Pressure Wound Therapy -Primary Dressing Applied -Primary Dressing Covered/Secured with -Other Covering -Aquacel AG 4x4 #1 left leon -Ulcer Cleansing -Foul Odor after Cleansing -Negative Pressure Wound Therapy -Primary Dressing Applied -Other Covering -Aquacel AG 4x4 Left -Lotion applied to leg before compression wrap -Multi-Layered Wrap Application Unna Boot - Unna Boot - Bilateral ($) Bilateral ($) -Unna Boots (Bilat) ($) 2 2 Treatment Response Vital Signs Temperature (97.8 F-99.1 F) Temperature Source Pulse Rate (60-100) Pulse Location Respiratory Rate (12-18) Respiratory rate source Oxygen Delivery Method Blood Pressure (90/60-120/80) Blood Pressure Mean (mm Hg) Source Position Blood Pressure Location Pain Scale: 0-10 Numeric Is Patient Pain Free? Yes Yes WC - Visit Discharge Discharge Condition Stable Stable Ambulatory Status Ambulatory Ambulatory Transportation Private Auto Private Auto Accompanied by self Medication Reconcilliation completed & provided to patient/care provider Clinical Summary of Care Provided Additional Wound Wound debrided: Right leg ulcer cluster Laterality: Right Type of Debridement: Excisional debridement Anesthesia Used: 4% Lidocaine Solution Depth: in the subcutaneous layer Percentage of wound debrided: 20 Instrument Used: 3mm curette Tissue Removed: Slough and devitalized tissue Severity: Fat Layer Exposed Amount of bleeding with debridement: Mild Bleeding Controlled with: Pressure Patient tolerated procedure: Patient did not tolerate procedure well Assessment/Plan Assessment/Plan (1) Venous stasis ulcer of left lower leg with edema of left lower leg: CODE(S): I83.029 - Varicose veins of left lower extremity with ulcer of unspecified site; I83.892 - Varicose veins of left lower extremity with other complications; L97.929 - Non-pressure chronic ulcer of unspecified part of left lower leg with unspecified severity; R60.9 - Edema, unspecified (2) Ulcer of right lower extremity with fat layer exposed: CODE(S): L97.912 - Non-pressure chronic ulcer of unspecified part of right lower leg with fat layer exposed (3) Allergic drug rash: CODE(S): L27.0 - Generalized skin eruption due to drugs and medicaments taken internally (4) Bilateral lower extremity edema: CODE(S): R60.0 - Localized edema PLAN: The patient's primary left leon ulcer is healed today. He continues to have several scattered ulcers of his bilateral lower extremities. Debridement performed today in clinic as annotated above. Aquacel Ag applied to the open ulcers of his right and left lower extremities. Bilateral Unna boots applied for the dry skin and scabbing of the bilateral lower extremities. Patient is responding well to prednisone taper. He has 2 days left before completing his taper. Given the duration of the patient's anterior left lower extremity ulcer and failure of the wound to respond to standard wound care, we will apply for advanced skin substitutes (Puraply, Apligraf). Per Mani JOHNSTON RN, these were denied. At home wound-care instructions: Keep Unna boots clean and dry. Cover with a cast cover or plastic bag when showering, taking caution when showering to avoid slips/falls. The patient has an appointment with dermatology on 02/01/2021. I will have him remove his Unna boots Sunday morning and shower prior to his appointment with dermatology. He has an appointment for vascular studies on 02/02/2021. I will have him apply Aquacel Ag to his ulcers and Tubigrip's to his bilateral lower extremities on Sunday following his dermatology appointment. Return on Sunday for a nurse visit to have Unna boots reapplied. If anytime you experience discomfort in the legs or toes while wearing the Unna boots, elevate feet. Discomfort should diminish as leg swelling improves. If you develop persistent numbness/tingling or discoloration of the toes that does not improve with leg elevation, contact the wound healing center and/or remove your Unna boots. Off-loading: The patient has essentially been placed on modified, intermittent bed rest. The patient was instructed to avoid pressure and friction on the affected areas. Reposition every 2 hours at minimum. Avoid prolonged standing and/or dangling of legs. When seated, feet should be elevated at chest level. Frequent ambulation is encouraged to promote blood flow and prevent blood clots. Diet: Patient encouraged to increase protein intake while taking caution to avoid high carbohydrate and/or sugar intake. Smoking: The risks of smoking and benefits of smoking cessation were discussed with the patient today. The patient is encouraged to quit smoking. If smoking cessation aids are desired, the patient should contact their primary care provider to discuss appropriate options. Labs/cultures/imaging: Left leg cultures from 01/07/2021 were positive for rare gram-positive rods, likely skin contaminant. Right leg cultures from 01/07/2021 were negative. No additional antibiotics were initiated. Due to purulent drainage and weaver crusting of his bilateral lower extremity ulcers, repeat cultures were obtained today (01/28/2021). Bactrim DS every 12 hours x10 days will be initiated for empiric treatment of possible MRSA. I will also have him begin mupirocin ointment twice daily to 3 times daily for the exposed, open wounds of his bilateral feet. Antibiotics will be adjusted based on culture results. Routine baseline lab work ordered (CBCD, CMP, ESR, prealbumin, hemoglobin A1c). WBC and ESR normal, kidney and liver function unremarkable, blood glucose slightly elevated, hemoglobin A1c 5.5%, prealbumin low. Complete venous and arterial studies of the bilateral lower extremities ordered. Scheduled for 02/02/2021. Follow-up: Patient was given another work excuse through 02/11/2021, due to the nature of his job requiring long periods of standing. He also has several upcoming appointments for management of his bilateral lower extremity wounds. He does not feel he would be able to wear his work boots while wearing Unna boots, or keep Unna boots clean/dry. Return to the clinic on Sunday for a nurse visit to have Unna boots reapplied. Return again on 02/04/2021 and 02/08/2021 for nurse visits. Return to clinic in 2 weeks for re-evaluation with a provider. Return sooner or report to the emergency room should symptoms worsen, or new symptoms arise. He has an upcoming appointment with [facility] to establish a primary care provider for management of his hypertension (Dr. Barajas). Note: [employer]) speech recognition angle shear set up operator software was used to create portions of this document. Sound-alike and misspelled words, as well as other angle shear set up operator errors may be contained in the documentation.
--- NOTE | 2021-01-31 10:28 | WC ---
Patient was sent a missed appointment letter asking him to contact the C to schedule an appointment. The C has also been informed by [facility] that they will be discontinuing his wound vac due to non compliance, patients last visit was 01/04/21. If there is no responce from the patient the C will start the process to discharge the patient and refer to another WCC for further treatment.
--- NOTE | 2021-02-02 08:56 | VDLE_ITS ---
Reason For Study: NON HEALING WOUND RIGHT LEFT CFV is compressible, spontaneous, phasic, CFV is compressible, spontaneous, phasic, competent and demonstrates normal competent, and demonstrates normal augmentation. augmentation. FV is compressible, spontaneous, phasic, FV is compressible, spontaneous, phasic, competent and demonstrates normal competent and demonstrates normal augmentation. augmentation. POP V is compressible, spontaneous, phasic, POP V is compressible, spontaneous, phasic, competent and demonstrates normal competent and demonstrates normal augmentation. augmentation. T/P Trunk is compressible. T/P Trunk is compressible. PTV is compressible. PTV is compressible. RT PerV is compressible. LT PerV is compressible. SFJ is INCOMPETENT and measures 0.79 x 1.00 SFJ is competent and measures 0.73 x 0.84 cm. cm. GSV above knee is competent. GSV INCOMPETENT throughout for greater than GSV below knee is INCOMPETENT for greater 0.5 seconds. than 0.5 seconds. GSV proximal thigh measures 0.44 x 0.47 cm. GSV proximal thigh measures 0.62 x 0.56 cm. GSV at knee measures 0.41 x 0.42 cm. GSV at knee measures 0.37 x 0.48 cm. SSV proximal calf is competent and measures SSV proximal calf is competent and measures 0.32 x 0.44 cm. 0.34 x 0.40 cm. Procedure Exam performed in department. The exam was diagnostic. A preliminary report was called and/or faxed to . VL/Venous Duplex US - Taco Extrem Interpretation Summary Deep veins of the lower extremities are bilaterally patent and compressible seg mentally. There is no evidence of deep vein thrombosis on either side. Valvular competence appears in tact within the proximal deep venous systems bilaterally. The great saphenous veins appear bila terally patent and compressible segmentally. The right sapheno-femoral junction is incompetent . T he left sapheno- femoral junction is competent . The right great saphenous vein appears segmenta lly incompetent. The left great saphenous vein appears competent above the knee. The left great saph enous vein appears incompetent below the knee. Small saphenous veins are patent and competent bila terally. Ordering Physician: Marlee Dee Performed By: Elissa Valerio RDCS, RVT
--- NOTE | 2021-02-02 08:58 | ART_ITS ---
Reason For Study: NONHEALING ULCER/WOUNDS Procedure A bilateral lower extremity continuous wave Doppler with analog waveform analysis,segmental pressures,and ankle brachial indexes without exercise. Unable to put blood presure cuffs on ankles due to open/seeping wounds and pain if cuffs tightened. Left Segmental Pressures Left brachial= 167mmHg. Left thigh = 217mmHg. Left calf = 205mmHg. Left digit = 145 mmHg. The left posterior tibial artery waveforms are triphasic. The left dorsalis pedis waveforms are triphasic. Right Segmental Pressures Right brachial= 164mmHg. Right thigh = 208mmHg. Right calf = 183mmHg. Right digit = 135 mmHg. The right posterior tibial artery waveforms are triphasic. The right dorsalis pedis waveforms are triphasic. Indices The right digital-brachial index is 0.81. RT THIGH/BRACHIAL INDEX=1.25 RT CALF/BRACHIAL INDEX=1.10. The left digital-brachial index is 0.87. LT THIGH/BRACHIAL INDEX=1.30 LT CALF/BRACHIAL INDEX=1.23. VL/Lower Ext Art Exam w/o Exercis Interpretation Summary Triphasic Doppler waveforms are noted at ankle level bilaterally. Pulse-volume recordings appear satisfactory at all levels bilaterally. Digital-brachial indices are normal geovani aterally. Resting ankle-brachial indices were not determined due to the presence of open wounds. There is no evidence of significant arterial occlusive disease in the lower ext remities bilaterally. Ordering Physician: Marlee Dee Referring Physician: MARLEE DEE [employer] REPAIRER-C Performed By: Elissa Valerio, SANDI, RVT
[2021-02-02 13:20] VITALS: BP 82/66; PULSE 84; RESP 18; TEMP 35.9
[2021-02-04 13:27] VITALS: BP 150/90; PULSE 80; TEMP 36.4
[2021-02-08 13:04] VITALS: BP 153/94; PULSE 73; TEMP 35.9
[2021-02-11 09:44] VITALS: BP 139/109; PULSE 111; RESP 20; TEMP 36.2
--- NOTE | 2021-02-11 12:28 | PN.PCM_ITS ---
History of Present Illness Date of Service: 02/11/21 Chief Complaint: Left leg wound, rash History of Wound: Obdulio is a pleasant 55-year-old male who presents to the wound healing center for an initial evaluation of a left leg ulcer. He has a past medical history significant for hypertension and hyperlipidemia. He is a pack per day smoker and has been practically his whole life. He also consumes alcohol regularly. He is not established with a primary care provider, and does not take any medications. He previously was on medication for hypertension, but stated that these medications made him dizzy so he stopped taking them. He was also previously treated asthma or COPD with an inhaler, but does not recall specific details. He has never been diagnosed with diabetes, chronic kidney disease, or peripheral vascular disease. He states that he scraped his left leon when tripping over a hose in February 2020. Since that time he has had a wound on his left leon, which frequently scabs over then reopens. He would use triple antibiotic ointment and a gauze bandage over his wound. At one point he also used an antifungal cream, as he felt his wound may have been ringworm. He also began using alcohol wipes to clean the wound. In November 2020, he felt that the wound was becoming infected. He does report he had gone swimming in a [place] around that time. He was seen in the emergency department at [facility] on 12/27/2020. A left lower extremity venous ultrasound revealed no evidence of DVT in the left lower extremity; the left great saphenous vein appeared patent and compressible segmentally. He was started on doxycycline 100 mg twice daily x10 days. He returned to the emergency room on 01/02/2021. He states he had developed a painful rash with starting doxycycline, extending from his abdomen to his toes, but was told to continue taking the doxycycline. There is no mention of a rash in his ER documentation from 01/02/2021. He completed his course of doxycycline yesterday, and feels his rash has slightly improved since that time. He still reports discomfort in the legs. He does not feel they are more swollen than his baseline. His labs from his ER visits were grossly unremarkable aside from an elevated blood glucose. He does not use compression to his lower extremities. His job requires long hours of standing. He does not elevate his lower extremities often. He does sleep in a bed at night. The patient denies fever, chills, general malaise, or poor appetite. The patient has not had increased redness, swelling, or purulent/malodorous drainage from affected area. Progress of Wound: The patient's bilateral lower extremity ulcers have again improved this week. He has been compliant with using Unna boots. His rash significantly improved with prednisone, which he has now completed. He continues to have scattered ulcers of both lower extremities (from knee to toes). Many of his lower extremity ulcers are scabbed over, some are open, and many are healed this week. The patient denies fever, chills, general malaise, or poor appetite. The patient has not had increased redness, swelling, or purulent/malodorous drainage from affected area. He continues to have significant discomfort in the bilateral legs with debridement. He was started on a 10-day course of Bactrim DS empirically for suspected MRSA infection. His culture from 01/28/2021 revealed 1+ Staph aureus, susceptible to Bactrim. He has completed this course of antibiotics. Bilateral lower extremity venous studies were significant for the following: Right saphenofemoral junction is incompetent. Right great saphenous vein appears segmentally incompetent. The left great saphenous vein appears incompetent below the knee. Bilateral lower extremity arterial studies revealed no evidence of significant arterial occlusive disease in the lower extremities. He was seen by dermatology (Jenny Michel) on 02/08/2021. Biopsies were taken from both lower extremities. He is to follow-up in 2 weeks. Differential diagnoses include dermatitis unspecified, vasculopathy, stasis ulcer, vasculitis. Objective Data Objective Data Vital Signs: Vital Signs Temp Pulse Resp BP 97.1 F L 111 H 20 H 139/109 H 02/11/21 09:44 02/11/21 09:44 02/11/21 09:44 02/11/21 09:44 Oxygen Delivery Method Room Air Lab / Micro Data Micro: Microbiology 01/28/21 10:05 Wound Abcess - Leg, Left Gram Stain - Final 01/28/21 10:05 Wound Abcess - Leg, Left Wound Culture - Final Staphylococcus aureus 01/28/21 10:05 Wound Abcess - Leg, Left Anaerobic Culture - Final No anaerobic bacteria isolated. Charges/Coding Procedures Integumentary [id number]: 10230 Diana subq tissue 20 sq cm/< Physical Exam Const alert, no apparent distress and healthy appearing General Appearance: cooperative, comfortable and well kempt Orientation / Consciousness: awake Nutritional Appearance: obese HEENT Head and Scalp: normocephalic and atraumatic Resp normal respiratory effort Extremity normal capillary refill and no calf tenderness General Extremity: edema bilateral lower extremity Details: mild; Negative for clubbing or cyanosis Peripheral Pulses: Yes dorsalis pedis pulses present bilateral 2+ Skin Rashes: rashes noted bilateral legs and abdomen Narrative: Generalized petechial rash still affecting the bilateral feet and legs, though to a lesser degree. Rash is no longer evident on the arms, back, or abdomen. petechiae Wounds: wounds noted No malodorous Wound Narrative: Scattered scabbing and ulcerations involving the bilateral lower legs below the knee. No blisters present this week. Ulcers extend to the subcutaneous tissue. No tunneling, undermining, or probing to bone of ulcerations. Nontender to palpation this week, though still very tender to debridement. No significant warmth. No purulent or malodorous drainage. No weaver crusting of ulcers. Neuro oriented x3, moves all extremities and no focal motor deficits Psych mental status grossly normal, cooperative and affect normal Debridement Note Debridement Note Wound debrided: Right lower extremity ulcer cluster Laterality: Right Type of Debridement: Excisional debridement Anesthesia Used: 4% Lidocaine Solution Depth: in the subcutaneous layer Percentage of wound debrided: 10 Instrument Used: 3mm curette Tissue Removed: Slough and devitalized tissue Severity: Fat Layer Exposed Amount of bleeding with debridement: Mild Bleeding Controlled with: Pressure Patient tolerated procedure: Patient did not tolerate procedure well Post-Debridement Measurements and Additional Note: Post-Debridement Measurements/Treatment WC - Nurse 1 - General Ulcer Assessment Start: 01/14/21 09:43 Freq: Status: Active Protocol: HEVER Activity Type Activity Date Activity User E-Sign Co-Sign Detail Recorded Client Recorded Date Recorded By Document 01/14/21 12:38 AK [id number] 01/14/21 12:43 AK Document 01/18/21 11:56 MW [id number] 01/18/21 12:02 MW Document 01/21/21 11:07 ML [id number] 01/21/21 11:21 ML Document 01/25/21 12:12 AK [id number] 01/25/21 12:13 AK Document 01/28/21 09:43 AK Desktop 01/28/21 09:51 AK Document 02/02/21 13:20 BMF [id number] 02/02/21 13:23 BMF Document 02/04/21 13:27 KR [id number] 02/04/21 13:29 KR Document 02/08/21 13:04 DL [id number] 02/08/21 13:11 DL Document 02/11/21 09:44 AK [id number] 02/11/21 09:50 AK 01/14/21 01/18/21 01/21/21 12:38 11:56 11:07 WC - Today's Visit Information Type of service Follow-up Visit Nurse-only Follow-up Visit (Physician/PERSONAL HEALTH COACH Visit (Physician/PERSONAL HEALTH COACH ) ) Arrival Mode Ambulatory Ambulatory Ambulatory Transfer Assistance None None Accompanied by SELF Patient Identification Verified (Name & Yes Yes Yes ) Patient Requires Transmission-Based No No No Precautions Safety Precautions NA NA NA Vital Signs Temperature (97.8 F-99.1 F) 97.4 F L 98.9 F 98.1 F Temperature Source Temporal Temporal Temporal Pulse Rate (60-100) 68 82 78 Pulse Location Monitor Monitor Monitor Respiratory Rate (12-18) 22 H 21 H Respiratory rate source Observation Observation Oxygen Delivery Method Room Air Blood Pressure (90/60-120/80) 150/98 H 179/110 H 189/126 H Blood Pressure Mean (mm Hg) 115 133 147 Source Monitor Monitor Monitor Position Sitting Sitting Blood Pressure Location Right Arm Right Arm Comment History Since Last Visit- (Skip if this is Patient's initial visit) Have you changed medications since your No No No last visit? Any new allergies or adverse reactions No No No Had a fall/change in ADL's that may No No No increase risk of falls Signs or symptoms of abuse and/or No No No neglect since last visit Have you been in the hospital since your No No No last visit? Has dressing in place as prescribed Yes Yes Yes Has compression in place as prescribed N/A No N/A Has offloadiing in place as prescribed N/A N/A N/A Experienced any changes in pain level or No No No management Left Footwear Regular Shoe Regular Shoe Regular Shoe Right Footwear Regular Shoe Regular Shoe Regular Shoe Other Footwear Pain Scale: 0-10 Numeric Is Patient Pain Free? Yes Yes 01/25/21 01/28/21 02/02/21 12:12 09:43 13:20 - Today's Visit Information Type of service Nurse-only Follow-up Visit Nurse-only Visit (Physician/PERSONAL HEALTH COACH Visit ) Arrival Mode Ambulatory Ambulatory Ambulatory Transfer Assistance None Accompanied by Patient Identification Verified (Name & Yes Yes Yes ) Patient Requires Transmission-Based No No Precautions Safety Precautions NA Vital Signs Temperature (97.8 F-99.1 F) 96.3 F L 95.9 F L 96.7 F L Temperature Source Temporal Temporal Temporal Pulse Rate (60-100) 72 109 H 84 Pulse Location Monitor Monitor Monitor Respiratory Rate (12-18) 18 Respiratory rate source Observation Oxygen Delivery Method Room Air Blood Pressure (90/60-120/80) 130/74 H 157/101 H 82/66 L Blood Pressure Mean (mm Hg) 92 119 71 Source Monitor Monitor Monitor Position Semi-Fowlers Sitting Sitting Blood Pressure Location Right Arm Right Arm Right Arm Comment History Since Last Visit- (Skip if this is Patient's initial visit) Have you changed medications since your No No No last visit? Any new allergies or adverse reactions No No No Had a fall/change in ADL's that may No No No increase risk of falls Signs or symptoms of abuse and/or No No No neglect since last visit Have you been in the hospital since your No No No last visit? Has dressing in place as prescribed Yes Yes No Has compression in place as prescribed Yes Yes No Has offloadiing in place as prescribed N/A N/A N/A Experienced any changes in pain level or No No No management Left Footwear Regular Shoe Regular Shoe Regular Shoe Right Footwear Regular Shoe Regular Shoe Regular Shoe Other Footwear removed unnas this morning for arterial studies Pain Scale: 0-10 Numeric Is Patient Pain Free? Yes Yes Yes 02/04/21 02/08/21 02/11/21 13:27 13:04 09:44 - Today's Visit Information Type of service Nurse-only Nurse-only Follow-up Visit Visit Visit (Physician/PERSONAL HEALTH COACH ) Arrival Mode Ambulatory Ambulatory Transfer Assistance None None Accompanied by Patient Identification Verified (Name & Yes Yes Yes ) Patient Requires Transmission-Based No No Precautions Safety Precautions Vital Signs Temperature (97.8 F-99.1 F) 97.5 F L 96.7 F L 97.1 F L Temperature Source Oral Temporal Temporal Pulse Rate (60-100) 80 73 111 H Pulse Location Monitor Monitor Monitor Respiratory Rate (12-18) 20 H Respiratory rate source Observation Oxygen Delivery Method Room Air Blood Pressure (90/60-120/80) 150/90 H 153/94 H 139/109 H Blood Pressure Mean (mm Hg) 110 113 119 Source Monitor Monitor Monitor Position Semi-Fowlers Sitting Blood Pressure Location Left Arm Right Arm Comment PT REMOVED UNNA BOOTS FOR AM SHOWER History Since Last Visit- (Skip if this is Patient's initial visit) Have you changed medications since your No No No last visit? Any new allergies or adverse reactions No No No Had a fall/change in ADL's that may No No No increase risk of falls Signs or symptoms of abuse and/or No No No neglect since last visit Have you been in the hospital since your No No No last visit? Has dressing in place as prescribed Yes Yes No Has compression in place as prescribed Yes No No Has offloadiing in place as prescribed N/A N/A N/A Experienced any changes in pain level or No No No management Left Footwear Regular Shoe Regular Shoe Right Footwear Regular Shoe Regular Shoe Other Footwear Pain Scale: 0-10 Numeric Is Patient Pain Free? Yes Yes Yes WC - Nurse 1 - General Ulcer Measurement Start: 01/14/21 09:43 Freq: Status: Active Protocol: Activity Type Activity Date Activity User E-Sign Co-Sign Detail Recorded Client Recorded Date Recorded By Document 01/14/21 12:38 AK [id number] 01/14/21 12:43 AK Document 01/18/21 11:56 MW [id number] 01/18/21 12:02 MW Document 01/21/21 11:07 ML [id number] 01/21/21 11:21 ML Document 01/28/21 09:43 AK Desktop 01/28/21 09:51 AK Document 02/02/21 13:20 BMF [id number] 02/02/21 13:23 BMF Document 02/04/21 13:27 KR [id number] 02/04/21 13:29 KR Document 02/08/21 13:04 DL [id number] 02/08/21 13:11 DL Document 02/11/21 09:44 AK [id number] 02/11/21 09:50 AK 01/14/21 01/18/21 01/21/21 12:38 11:56 11:07 Wound Center Nurse 1 #3 Left Calf -Combined with other wound -Current Size (cm) - Length -Current Size (cm) - Width -Current Size (cm) - Depth -Total Square Cm -Photo Taken -Epithelialization -Tunneling -Undermining/Tunneling -Circular Undermining -Exudate Amt -Exudate Type -Wound Margin -Granulation Amt -Granulation Quality -Slough/Fibrin -Necrosis Amt -Necrotic Tissue Type -Texture (Marcia-wound Skin Appearance) -Moisture (Marcia-wound Skin Appearance) -Color (Marcia-wound Skin Appearance) -Temperature (Marcia-wound Skin Appearance) -Tenderness on Palpation (Marcia-wound Skin Appearance) -Ulcer Cleansing -Foul Odor after Cleansing -Anesthetic Used #2 Right Lat Lower Leg -Combined with other wound No No -Current Size (cm) - Length 12 2 -Current Size (cm) - Width 14 10 -Current Size (cm) - Depth 0.1 0.1 -Total Square Cm 168 20 -Photo Taken No -Epithelialization -Tunneling No -Undermining/Tunneling No -Circular Undermining No -Change in Wound Grade/Stage No -Exudate Amt Medium Small -Exudate Type Serosanguineous Serosanguineous -Wound Margin Distinct, Distinct, Outline Outline Attached Attached -Granulation Amt Medium (34-66%) Medium (34-66%) -Granulation Quality [place],Red -Slough/Fibrin Yes Yes -Necrosis Amt Medium (34-66%) Medium (34-66%) -Necrotic Tissue Type Adherent Slough Adherent Slough -Structure Exposed N/A -Texture (Marcia-wound Skin Appearance) No Abnormality, Assessed Assessed -Moisture (Marcia-wound Skin Appearance) Assessed, Assessed,Dry/ Maceration Scaly -Color (Marcia-wound Skin Appearance) No Abnormality, Assessed Assessed, Hemosiderin Staining -Temperature (Marcia-wound Skin No Abnormality Appearance) (Pt Warm) -Tenderness on Palpation (Marcia-wound No Skin Appearance) -Ulcer Cleansing Soap and Water Soap and Water -Foul Odor after Cleansing No No -Anesthetic Used 5% Lidocaine 4% Lidocaine Gel Solution #1 left leon -Combined with other wound No -Current Size (cm) - Length 19 1 -Current Size (cm) - Width 23 1.5 -Current Size (cm) - Depth 0.1 0.1 -Total Square Cm 437 1.5 -Photo Taken No -Tunneling No -Undermining/Tunneling No -Circular Undermining No -Classification - Thickness Partial Thickness -Change in Wound Grade/Stage No -Exudate Amt Medium Small -Exudate Type Serosanguineous Serosanguineous -Wound Margin Distinct, Distinct, Outline Outline Attached Attached -Granulation Amt Medium (34-66%) Small (1-33%) -Granulation Quality [place],Red -Slough/Fibrin Yes Yes -Necrosis Amt Medium (34-66%) Small (1-33%) -Necrotic Tissue Type Adherent Slough Adherent Slough -Structure Exposed N/A -Texture (Marcia-wound Skin Appearance) Assessed, Assessed Excoriation -Moisture (Marcia-wound Skin Appearance) Assessed, Assessed,Dry/ Maceration Scaly -Color (Marcia-wound Skin Appearance) Assessed Assessed -Temperature (Marcia-wound Skin No Abnormality No Abnormality Appearance) (Pt Warm) (Pt Warm) -Tenderness on Palpation (Marcia-wound Yes No Skin Appearance) -Ulcer Cleansing Rinsed/ Soap and Water Irrigated with Saline -Foul Odor after Cleansing No No -Anesthetic Used 5% Lidocaine 4% Lidocaine Gel Solution Lower Limb Edema Present Yes Right Calf (cm) 47 49.2 Right Ankle (cm) 28 28.0 Left Calf (cm) 48 49.0 Left Ankle (cm) 30.5 29.5 01/28/21 02/02/21 02/04/21 09:43 13:20 13:27 Wound Center Nurse 1 #3 Left Calf -Combined with other wound -Current Size (cm) - Length 17 -Current Size (cm) - Width 4 -Current Size (cm) - Depth 0.1 -Total Square Cm 68 -Photo Taken -Epithelialization -Tunneling -Undermining/Tunneling -Circular Undermining -Exudate Amt Small -Exudate Type Serosanguineous -Wound Margin Distinct, Outline Attached -Granulation Amt Medium (34-66%) -Granulation Quality Red -Slough/Fibrin -Necrosis Amt Medium (34-66%) -Necrotic Tissue Type Adherent Slough -Texture (Marcia-wound Skin Appearance) Assessed, Scarring -Moisture (Marcia-wound Skin Appearance) No Abnormality, Assessed -Color (Marcia-wound Skin Appearance) No Abnormality, Assessed -Temperature (Marcia-wound Skin No Abnormality Appearance) (Pt Warm) -Tenderness on Palpation (Marcia-wound No Skin Appearance) -Ulcer Cleansing Rinsed/ Irrigated with Saline -Foul Odor after Cleansing No -Anesthetic Used 4% Lidocaine Solution #2 Right Lat Lower Leg -Combined with other wound -Current Size (cm) - Length 22 -Current Size (cm) - Width 18 -Current Size (cm) - Depth 0.1 -Total Square Cm 396 -Photo Taken -Epithelialization -Tunneling -Undermining/Tunneling -Circular Undermining -Change in Wound Grade/Stage -Exudate Amt Small -Exudate Type Serosanguineous -Wound Margin Distinct, Outline Attached -Granulation Amt Medium (34-66%) -Granulation Quality Red -Slough/Fibrin -Necrosis Amt Medium (34-66%) -Necrotic Tissue Type Adherent Slough -Structure Exposed -Texture (Marcia-wound Skin Appearance) Assessed, Scarring -Moisture (Marcia-wound Skin Appearance) No Abnormality, Assessed -Color (Marcia-wound Skin Appearance) No Abnormality, Assessed -Temperature (Marcia-wound Skin No Abnormality Appearance) (Pt Warm) -Tenderness on Palpation (Marcia-wound No Skin Appearance) -Ulcer Cleansing Rinsed/ Irrigated with Saline -Foul Odor after Cleansing No -Anesthetic Used 4% Lidocaine Solution #1 left leon -Combined with other wound -Current Size (cm) - Length -Current Size (cm) - Width -Current Size (cm) - Depth -Total Square Cm -Photo Taken -Tunneling -Undermining/Tunneling -Circular Undermining -Classification - Thickness -Change in Wound Grade/Stage -Exudate Amt -Exudate Type -Wound Margin -Granulation Amt -Granulation Quality -Slough/Fibrin -Necrosis Amt -Necrotic Tissue Type -Structure Exposed -Texture (Marcia-wound Skin Appearance) -Moisture (Marcia-wound Skin Appearance) -Color (Marcia-wound Skin Appearance) -Temperature (Marcia-wound Skin Appearance) -Tenderness on Palpation (Marcia-wound Skin Appearance) -Ulcer Cleansing -Foul Odor after Cleansing -Anesthetic Used Lower Limb Edema Present Yes Right Calf (cm) 47 48.8 48 Right Ankle (cm) 27.5 27.8 28 Left Calf (cm) 46.5 48 47 Left Ankle (cm) 28 29 29 02/08/21 02/11/21 13:04 09:44 Wound Center Nurse 1 #3 Left Calf -Combined with other wound No -Current Size (cm) - Length 17 -Current Size (cm) - Width 2 -Current Size (cm) - Depth 0.1 -Total Square Cm 34 -Photo Taken No No -Epithelialization None Present -Tunneling No -Undermining/Tunneling No -Circular Undermining No -Exudate Amt None Present None Present -Exudate Type -Wound Margin Distinct, Outline Attached -Granulation Amt None Present (0 %) -Granulation Quality -Slough/Fibrin Yes -Necrosis Amt Large (67-100%) -Necrotic Tissue Type Eschar -Texture (Marcia-wound Skin Appearance) Scarring Assessed, Scarring -Moisture (Marcia-wound Skin Appearance) Dry/Scaly Assessed -Color (Marcia-wound Skin Appearance) Hemosiderin Assessed Staining -Temperature (Marcia-wound Skin No Abnormality No Abnormality Appearance) (Pt Warm) (Pt Warm) -Tenderness on Palpation (Marcia-wound No No Skin Appearance) -Ulcer Cleansing Soap and Water Rinsed/ Irrigated with Saline -Foul Odor after Cleansing No No -Anesthetic Used 4% Lidocaine Solution #2 Right Lat Lower Leg -Combined with other wound No -Current Size (cm) - Length 22 -Current Size (cm) - Width 5 -Current Size (cm) - Depth 0.2 -Total Square Cm 110 -Photo Taken No No -Epithelialization None Present -Tunneling No -Undermining/Tunneling No -Circular Undermining No -Change in Wound Grade/Stage -Exudate Amt None Present Small -Exudate Type Serosanguineous -Wound Margin Distinct, Outline Attached -Granulation Amt Small (1-33%) -Granulation Quality Red -Slough/Fibrin Yes -Necrosis Amt Large (67-100%) -Necrotic Tissue Type Eschar -Structure Exposed -Texture (Marcia-wound Skin Appearance) Scarring Assessed, Scarring -Moisture (Marcia-wound Skin Appearance) Dry/Scaly Assessed -Color (Marcia-wound Skin Appearance) Hemosiderin Assessed Staining -Temperature (Marcia-wound Skin No Abnormality No Abnormality Appearance) (Pt Warm) (Pt Warm) -Tenderness on Palpation (Marcia-wound No Skin Appearance) -Ulcer Cleansing Rinsed/ Irrigated with Saline -Foul Odor after Cleansing -Anesthetic Used 4% Lidocaine Solution, Cetacaine #1 left leon -Combined with other wound -Current Size (cm) - Length -Current Size (cm) - Width -Current Size (cm) - Depth -Total Square Cm -Photo Taken -Tunneling -Undermining/Tunneling -Circular Undermining -Classification - Thickness -Change in Wound Grade/Stage -Exudate Amt -Exudate Type -Wound Margin -Granulation Amt -Granulation Quality -Slough/Fibrin -Necrosis Amt -Necrotic Tissue Type -Structure Exposed -Texture (Marcia-wound Skin Appearance) -Moisture (Marcia-wound Skin Appearance) -Color (Marcia-wound Skin Appearance) -Temperature (Marcia-wound Skin Appearance) -Tenderness on Palpation (Marcia-wound Skin Appearance) -Ulcer Cleansing -Foul Odor after Cleansing -Anesthetic Used Lower Limb Edema Present Yes Right Calf (cm) 47 Right Ankle (cm) 26 Left Calf (cm) 46.1 Left Ankle (cm) 28 WC - Nurse 2 - General Ulcer CM Notes Start: 01/14/21 09:43 Freq: Status: Active Protocol: Activity Type Activity Date Activity User E-Sign Co-Sign Detail Recorded Client Recorded Date Recorded By Document 01/14/21 13:27 PL [id number] 01/14/21 13:28 PL Document 01/21/21 13:06 PL [id number] 01/21/21 13:10 PL Document 01/28/21 13:20 PL [id number] 01/28/21 13:24 PL 01/14/21 01/21/21 01/28/21 13:27 13:06 13:20 Wound Center Nurse 2 #3 Left Calf -Time 11:44 09:55 -Correct Patient Yes Yes -Correct Side, Site, Position Yes Yes -Correct Procedure Yes Yes -Procedure Performed Yes Yes -Type of Procedure Debridement Debridement -Clinical Debridement Subcutaneous Subcutaneous -Tissue Removed Subcutaneous Subcutaneous -Post Debridement (cm) - Length 1.5 1.5 -Post Debridement (cm) - Width 1.0 1.0 -Post Debridement (cm) - Depth 0.1 0.1 -Total Square (Post) (cm) 1.50 1.50 -Area of Debridement (cm) - Length 1.5 1.5 -Area of Debridement (cm) - Width 1.0 1.0 -Total Square (Area) (cm) 1.50 1.50 -Tunneling No No -Undermining/Tunneling No -Circular Undermining No No -Wound/Ulcer Outcome Not Healed Not Healed -Ulcer Cleansing Rinsed/ Rinsed/ Irrigated with Irrigated with Saline Saline -Foul Odor after Cleansing No No -Bioengineered Tissue No No -Bleeding Controlled with Pressure Pressure -Treatment Response Procedure Procedure Tolerated Well Tolerated Well -Debridement - Subq, 1st 20sq cm No Yes #2 Right Lat Lower Leg -Time 10:20 11:44 09:55 -Correct Patient Yes Yes Yes -Correct Side, Site, Position Yes Yes Yes -Correct Procedure Yes Yes Yes -Procedure Performed Yes Yes Yes -Type of Procedure Debridement Debridement Debridement -Clinical Debridement Subcutaneous Subcutaneous Subcutaneous -Tissue Removed Subcutaneous Subcutaneous Subcutaneous -Post Debridement (cm) - Length 2.0 48 48 -Post Debridement (cm) - Width 1.5 32 22 -Post Debridement (cm) - Depth 0.1 0.1 0.1 -Total Square (Post) (cm) 3.00 1536 1056 -Area of Debridement (cm) - Length 2.0 4.8 4.8 -Area of Debridement (cm) - Width 1.5 3.2 2.2 -Total Square (Area) (cm) 3.00 15.36 10.56 -Tunneling No No No -Undermining/Tunneling No No No -Circular Undermining No No No -Wound/Ulcer Outcome Not Healed Not Healed -Ulcer Cleansing Rinsed/ Rinsed/ Rinsed/ Irrigated with Irrigated with Irrigated with Saline Saline Saline -Foul Odor after Cleansing No No No -Bioengineered Tissue No No No -Bleeding Controlled with Pressure -Treatment Response Procedure Tolerated Well -Debridement - Subq, 1st 20sq cm Yes Yes No -Debridement, SubQ, ea addt'l 20sq cm 1 or part thereof #1 left leon -Time 11:44 -Correct Patient Yes -Correct Side, Site, Position Yes -Correct Procedure Yes -Procedure Performed Yes No -Type of Procedure Debridement -Clinical Debridement Subcutaneous -Tissue Removed Subcutaneous -Post Debridement (cm) - Length 48.0 -Post Debridement (cm) - Width 22.0 -Post Debridement (cm) - Depth 0.1 -Total Square (Post) (cm) 1056.00 -Area of Debridement (cm) - Length 4.8 -Area of Debridement (cm) - Width 2.2 -Total Square (Area) (cm) 10.56 -Tunneling No -Undermining/Tunneling No -Circular Undermining No -Wound/Ulcer Outcome Not Healed Healed- Epithelialized -Ulcer Cleansing Rinsed/ Irrigated with Saline -Foul Odor after Cleansing No -Bioengineered Tissue No -Bleeding Controlled with Pressure -Treatment Response Procedure Tolerated Well -Debridement - Subq, 1st 20sq cm No WC - Nurse 3 - General Ulcer D/C NN Start: 01/14/21 09:43 Freq: Status: Active Protocol: Activity Type Activity Date Activity User E-Sign Co-Sign Detail Recorded Client Recorded Date Recorded By Document 01/14/21 12:38 AK [id number] 01/14/21 12:39 AK Document 01/18/21 11:56 MW [id number] 01/18/21 12:02 MW Document 01/21/21 12:41 AK [id number] 01/21/21 12:42 AK Document 01/25/21 12:13 AK [id number] 01/25/21 12:14 AK Document 01/28/21 10:33 KR Desktop 01/28/21 10:33 KR Document 02/02/21 13:20 BMF [id number] 02/02/21 13:23 BMF Document 02/04/21 13:27 KR [id number] 02/04/21 13:29 KR Document 02/08/21 13:04 DL [id number] 02/08/21 13:11 DL Document 02/11/21 10:40 BMF [id number] 02/11/21 10:41 BMF 01/14/21 01/18/21 01/21/21 12:38 11:56 12:41 Wound Care Nurse 3 #3 Left Calf -Ulcer Cleansing -Foul Odor after Cleansing -Primary Dressing Applied -Other Dressing -Primary Dressing Covered/Secured with -Aquacel AG 4x4 #2 Right Lat Lower Leg -Ulcer Cleansing Soap and Water Rinsed/ Irrigated with Saline -Foul Odor after Cleansing No No -Negative Pressure Wound Therapy N/A N/A -Primary Dressing Applied Aquacel AG 4x4 Aquacel AG 4x4 -Other Dressing -Primary Dressing Covered/Secured with Dry Gauze -Other Covering UNNA -Aquacel AG 4x4 1 1 #1 left leon -Ulcer Cleansing Soap and Water Rinsed/ Irrigated with Saline -Foul Odor after Cleansing No -Negative Pressure Wound Therapy N/A -Primary Dressing Applied Aquacel AG 4x4 -Other Covering UNNA -Aquacel AG 4x4 0 SHREE -Multi-Layered Wrap Application -Unna Boots (Bilat) ($) Left -Lotion applied to leg before No compression wrap -Multi-Layered Wrap Application Unna Boot - Unna Boot - Unna Boot - Bilateral ($) Bilateral ($) Bilateral ($) -Unna Boots (Bilat) ($) 2 2 2 Treatment Response Procedure Tolerated Well Vital Signs Temperature (97.8 F-99.1 F) 98.9 F Temperature Source Temporal Pulse Rate (60-100) 82 Pulse Location Monitor Respiratory Rate (12-18) 22 H Respiratory rate source Observation Oxygen Delivery Method Room Air Blood Pressure (90/60-120/80) 179/110 H Blood Pressure Mean (mm Hg) 133 Source Monitor Position Sitting Blood Pressure Location Right Arm Pain Scale: 0-10 Numeric Is Patient Pain Free? Yes Yes WC - Visit Discharge Discharge Condition Stable Stable Stable Ambulatory Status Ambulatory Ambulatory Ambulatory Transportation Private Auto Private Auto Private Auto Accompanied by SELF Medication Reconcilliation completed & No No provided to patient/care provider Clinical Summary of Care Provided Yes Yes 01/25/21 01/28/21 02/02/21 12:13 10:33 13:20 Wound Care Nurse 3 #3 Left Calf -Ulcer Cleansing -Foul Odor after Cleansing -Primary Dressing Applied Aquacel AG 4x4 -Other Dressing unna boot, aquacel ag -Primary Dressing Covered/Secured with Dry Gauze -Aquacel AG 4x4 1 #2 Right Lat Lower Leg -Ulcer Cleansing -Foul Odor after Cleansing -Negative Pressure Wound Therapy -Primary Dressing Applied -Other Dressing unna boot; aquacel ag -Primary Dressing Covered/Secured with -Other Covering -Aquacel AG 4x4 #1 left leon -Ulcer Cleansing -Foul Odor after Cleansing -Negative Pressure Wound Therapy -Primary Dressing Applied -Other Covering -Aquacel AG 4x4 SHREE -Multi-Layered Wrap Application Unna Boot - Bilateral ($) -Unna Boots (Bilat) ($) 2 Left -Lotion applied to leg before compression wrap -Multi-Layered Wrap Application Unna Boot - Unna Boot - Bilateral ($) Bilateral ($) -Unna Boots (Bilat) ($) 2 2 Treatment Response Procedure Tolerated Well Vital Signs Temperature (97.8 F-99.1 F) 96.7 F L Temperature Source Temporal Pulse Rate (60-100) 84 Pulse Location Monitor Respiratory Rate (12-18) 18 Respiratory rate source Observation Oxygen Delivery Method Room Air Blood Pressure (90/60-120/80) 82/66 L Blood Pressure Mean (mm Hg) 71 Source Monitor Position Sitting Blood Pressure Location Right Arm Pain Scale: 0-10 Numeric Is Patient Pain Free? Yes Yes Yes WC - Visit Discharge Discharge Condition Stable Stable Stable Ambulatory Status Ambulatory Ambulatory Ambulatory Transportation Private Auto Private Auto Private Auto Accompanied by self Medication Reconcilliation completed & provided to patient/care provider Clinical Summary of Care Provided 02/04/21 02/08/21 02/11/21 13:27 13:04 10:40 Wound Care Nurse 3 #3 Left Calf -Ulcer Cleansing Soap and Water Rinsed/ Irrigated with Saline -Foul Odor after Cleansing No No -Primary Dressing Applied Aquacel AG 4x4 -Other Dressing aquacel Ag UNNA PER [place] RN FIELD CASE MANAGER -Primary Dressing Covered/Secured with Dry Gauze -Aquacel AG 4x4 1 #2 Right Lat Lower Leg -Ulcer Cleansing Soap and Water Rinsed/ Irrigated with Saline -Foul Odor after Cleansing No No -Negative Pressure Wound Therapy -Primary Dressing Applied Aquacel AG 4x4, Other -Other Dressing Aquacel AG UNNA PER [place] RN FIELD CASE MANAGER -Primary Dressing Covered/Secured with Dry Gauze -Other Covering -Aquacel AG 4x4 0 #1 left leon -Ulcer Cleansing -Foul Odor after Cleansing -Negative Pressure Wound Therapy -Primary Dressing Applied -Other Covering -Aquacel AG 4x4 SHREE -Multi-Layered Wrap Application Unna Boot - Unna Boot - Unna Boot - Bilateral ($) Bilateral ($) Bilateral ($) -Unna Boots (Bilat) ($) 2 1 2 Left -Lotion applied to leg before compression wrap -Multi-Layered Wrap Application -Unna Boots (Bilat) ($) Treatment Response Procedure Procedure Tolerated Well Tolerated Well Vital Signs Temperature (97.8 F-99.1 F) 97.5 F L 96.7 F L Temperature Source Oral Temporal Pulse Rate (60-100) 80 73 Pulse Location Monitor Monitor Respiratory Rate (12-18) Respiratory rate source Oxygen Delivery Method Blood Pressure (90/60-120/80) 150/90 H 153/94 H Blood Pressure Mean (mm Hg) 110 113 Source Monitor Monitor Position Semi-Fowlers Blood Pressure Location Left Arm Pain Scale: 0-10 Numeric Is Patient Pain Free? Yes Yes Yes WC - Visit Discharge Discharge Condition Stable Stable Stable Ambulatory Status Ambulatory Ambulatory Ambulatory Transportation Private Auto Private Auto Private Auto Accompanied by Medication Reconcilliation completed & provided to patient/care provider Clinical Summary of Care Provided Additional Wound Wound debrided: Left lower extremity ulcer cluster Laterality: Left Type of Debridement: Excisional debridement Anesthesia Used: 4% Lidocaine Solution Depth: in the subcutaneous layer Percentage of wound debrided: 100 Instrument Used: 3mm curette Tissue Removed: Slough and devitalized tissue Severity: Fat Layer Exposed Amount of bleeding with debridement: Mild Bleeding Controlled with: Pressure and Compression and gauze Patient tolerated procedure: Patient did not tolerate procedure well Assessment/Plan Assessment/Plan (1) Venous stasis ulcer with varicose veins of right lower extremity: CODE(S): I83.019 - Varicose veins of right lower extremity with ulcer of unspecified site; L97.919 - Non-pressure chronic ulcer of unspecified part of right lower leg with unspecified severity (2) Venous stasis ulcer of left lower leg with edema of left lower leg: CODE(S): I83.029 - Varicose veins of left lower extremity with ulcer of unspecified site; I83.892 - Varicose veins of left lower extremity with other complications; L97.929 - Non-pressure chronic ulcer of unspecified part of left lower leg with unspecified severity; R60.9 - Edema, unspecified (3) Ulcer of right lower extremity with fat layer exposed: CODE(S): L97.912 - Non-pressure chronic ulcer of unspecified part of right lower leg with fat layer exposed (4) Allergic drug rash: CODE(S): L27.0 - Generalized skin eruption due to drugs and medicaments taken internally (5) Ulcer of left lower extremity with fat layer exposed: CODE(S): L97.922 - Non-pressure chronic ulcer of unspecified part of left lower leg with fat layer exposed (6) Venous insufficiency of both lower extremities: CODE(S): I87.2 - Venous insufficiency (chronic) (peripheral) (7) Dermatitis: CODE(S): L30.9 - Dermatitis, unspecified (8) Bilateral lower extremity edema: CODE(S): R60.0 - Localized edema (9) Staphylococcal infection of skin: CODE(S): L08.9 - Local infection of the skin and subcutaneous tissue, unspecified; B95.8 - Unspecified staphylococcus as the cause of diseases classified elsewhere PLAN: He continues to have several scattered ulcers of his bilateral lower extremities, though these have improved. Debridement performed today in clinic as annotated above. Aquacel Ag applied to the open ulcers of his right and left lower extremities. Bilateral Unna boots applied for the dry skin and scabbing of the bilateral lower extremities. He has completed a prednisone taper and a 10-day course of Bactrim DS. Given the duration of the patient's anterior left lower extremity ulcer and failure of the wound to respond to standard wound care, we will apply for advanced skin substitutes (Puraply, Apligraf). Per Mani JOHNSTON RN, these were denied. At home wound-care instructions: Keep Unna boots clean and dry. Cover with a cast cover or plastic bag when showering, taking caution when showering to avoid slips/falls. If anytime you experience discomfort in the legs or toes while wearing the Unna boots, elevate feet. Discomfort should diminish as leg swelling improves. If you develop persistent numbness/tingling or discoloration of the toes that does not improve with leg elevation, contact the wound healing center and/or remove your Unna boots. Continue mupirocin ointment BID-TID to the exposed ulcers on the toes. Off-loading: The patient has been placed on modified, intermittent bed rest. The patient was instructed to avoid pressure and friction on the affected areas. Reposition every 2 hours at minimum. Avoid prolonged standing, walking, and/or dangling of legs. When seated, feet should be elevated at chest level. Frequent, short periods of ambulation are encouraged to promote blood flow and prevent blood clots. Diet: Patient encouraged to increase protein intake while taking caution to avoid high carbohydrate and/or sugar intake. Smoking: The risks of smoking and benefits of smoking cessation were discussed with the patient today. The patient is encouraged to quit smoking. If smoking cessation aids are desired, the patient should contact their primary care provider to discuss appropriate options. Labs/cultures/imaging: Left leg cultures from 01/07/2021 were positive for rare gram-positive rods, likely skin contaminant. Right leg cultures from 01/07/2021 were negative. No additional antibiotics were initiated. He completed a 10-day course of Bactrim DS empirically for suspected MRSA infection. His culture from 01/28/2021 revealed 1+ Staph aureus, susceptible to Bactrim. Bilateral lower extremity venous studies were significant for the following: Right saphenofemoral junction is incompetent. Right great saphenous vein appears segmentally incompetent. The left great saphenous vein appears incompetent below the knee. Bilateral lower extremity arterial studies revealed no evidence of significant arterial occlusive disease in the lower extremities. He was seen by dermatology (Jenny Michel) on 02/08/2021. Biopsies were taken from both lower extremities. He is to follow-up in 2 weeks. Routine baseline lab work ordered (CBCD, CMP, ESR, prealbumin, hemoglobin A1c). WBC and ESR normal, kidney and liver function unremarkable, blood glucose slightly elevated, hemoglobin A1c 5.5%, prealbumin low. Follow-up: Patient was given another work excuse through 02/18/2021, due to the nature of his job requiring long periods of standing. He also has several upcoming appointments for management of his conditions. He does not feel he would be able to wear his work boots while wearing Unna boots, or keep Unna boots clean/dry. Referral made to Vascular specialist for evaluation of venous insufficiency. Return to the clinic in 1 week for re-evaluation with a provider. Return sooner or report to the emergency room should symptoms worsen, or new symptoms arise. Note: [employer] speech recognition bioanalyst software was used to create portions of this document. Sound-alike and misspelled words, as well as other bioanalyst errors may be contained in the documentation.
== END 2021-02-13 23:59 ==
LOC: WC 09:45
PROVIDERS: Visit Provider Nurse Practitioner Family
DX: I83.892 Varicose veins of left lower extremity with other complications (principal); L97.922 Non-pressure chronic ulcer of unspecified part of left lower leg with fat layer exposed; I83.018 Varicose veins of right lower extremity with ulcer other part of lower leg; L97.812 Non-pressure chronic ulcer of other part of right lower leg with fat layer exposed; L27.0 Generalized skin eruption due to drugs and medicaments taken internally; R60.0 Localized edema; E78.5 Hyperlipidemia, unspecified; I10 Essential (primary) hypertension; F17.210 Nicotine dependence, cigarettes, uncomplicated; I87.2 Venous insufficiency (chronic) (peripheral); J44.9 Chronic obstructive pulmonary disease, unspecified; L08.9 Local infection of the skin and subcutaneous tissue, unspecified
CPT/HCPCS: 11042; 11045; 29580; 87070; 87075; 87077; 87186; 87205; 93923; 93970

== ENCOUNTER 2021-03-04 10:00 | Outpatient (RCR) | payer BC, SELFPAY ==
[2021-02-14 00:30] VITALS: BP 139/109; PULSE 111; RESP 20; TEMP 36.2
[2021-02-18 09:52] VITALS: TEMP 36.1
--- NOTE | 2021-02-18 13:22 | PCM.WC.PN ---
History of Present Illness Date of Service: 02/18/21 Chief Complaint: Left leg wound, rash History of Wound: Obdulio is a pleasant 55-year-old male who presents to the wound healing center for an initial evaluation of a left leg ulcer. He has a past medical history significant for hypertension and hyperlipidemia. He is a pack per day smoker and has been practically his whole life. He also consumes alcohol regularly. He is not established with a primary care provider, and does not take any medications. He previously was on medication for hypertension, but stated that these medications made him dizzy so he stopped taking them. He was also previously treated asthma or COPD with an inhaler, but does not recall specific details. He has never been diagnosed with diabetes, chronic kidney disease, or peripheral vascular disease. He states that he scraped his left leon when tripping over a hose in February 2020. Since that time he has had a wound on his left leon, which frequently scabs over then reopens. He would use triple antibiotic ointment and a gauze bandage over his wound. At one point he also used an antifungal cream, as he felt his wound may have been ringworm. He also began using alcohol wipes to clean the wound. In November 2020, he felt that the wound was becoming infected. He does report he had gone swimming in a [place] around that time. He was seen in the emergency department at [facility] on 12/27/2020. A left lower extremity venous ultrasound revealed no evidence of DVT in the left lower extremity; the left great saphenous vein appeared patent and compressible segmentally. He was started on doxycycline 100 mg twice daily x10 days. He returned to the emergency room on 01/02/2021. He states he had developed a painful rash with starting doxycycline, extending from his abdomen to his toes, but was told to continue taking the doxycycline. There is no mention of a rash in his ER documentation from 01/02/2021. He completed his course of doxycycline yesterday, and feels his rash has slightly improved since that time. He still reports discomfort in the legs. He does not feel they are more swollen than his baseline. His labs from his ER visits were grossly unremarkable aside from an elevated blood glucose. He does not use compression to his lower extremities. His job requires long hours of standing. He does not elevate his lower extremities often. He does sleep in a bed at night. The patient denies fever, chills, general malaise, or poor appetite. The patient has not had increased redness, swelling, or purulent/malodorous drainage from affected area. Progress of Wound: The patient's wounds are significantly improved in size and appearance this week. He reports a significant decrease in his lower extremity pain. He is tolerating dressings and Unna boots well. The patient denies fever, general malaise, or poor appetite. The patient has not had increased redness, swelling, or purulent/malodorous drainage from affected areas. The patient's skin biopsy results from [facility] were reviewed, as follows: Right proximal pretibial region: Prominent stasis changes Left distal pretibial region: Subacute spongiotic dermatitis with stasis changes. Comment: This cutaneous pattern of injury is consistent with an eczematous process. The differential includes stasis dermatitis versus stasis changes with a concurrent eczematous process such as nummular or contact dermatitis. Objective Data Objective Data Vital Signs: Vital Signs Temp Pulse Resp BP 97.0 F L 111 H 20 H 139/109 H 02/18/21 09:52 02/14/21 00:30 02/14/21 00:30 02/14/21 00:30 Charges/Coding Procedures Integumentary 111xxx-113xx: [id number] Diana subq tissue 20 sq cm/< Physical Exam Const alert, no apparent distress and healthy appearing General Appearance: cooperative, comfortable and well kempt Orientation / Consciousness: awake Nutritional Appearance: obese HEENT Head and Scalp: normocephalic and atraumatic Resp normal respiratory effort Extremity normal capillary refill and no calf tenderness General Extremity: edema bilateral lower extremity Details: trace; Negative for clubbing or cyanosis Peripheral Pulses: Yes dorsalis pedis pulses present bilateral 2+ Skin Rashes: No rashes noted Wounds: wounds noted No malodorous Wound Narrative: Scattered scabbing and ulcerations involving the right lower leg below the knee. No blisters present this week. Ulcers extend to the subcutaneous tissue. No tunneling, undermining, or probing to bone of ulcerations. Significant improvement in tenderness to debridement. No significant warmth. No purulent or malodorous drainage. No weaver crusting of ulcers. Ulcers of right dorsal foot, and left toes, with subcutaneous layer exposed. No tunneling, undermining, or probing to bone. No significant warmth or drainage. Significant improvement tenderness to debridement. Neuro oriented x3, moves all extremities and no focal motor deficits Psych mental status grossly normal, cooperative and affect normal Debridement Note Debridement Note Wound debrided: Right lower extremity ulcer cluster Laterality: Right Type of Debridement: Excisional debridement Anesthesia Used: 4% Lidocaine Solution Depth: in the subcutaneous layer Percentage of wound debrided: 10 Instrument Used: 3mm curette Tissue Removed: Slough and devitalized tissue Severity: Fat Layer Exposed Amount of bleeding with debridement: Mild Bleeding Controlled with: Pressure Patient tolerated procedure: Patient tolerated procedure well Post-Debridement Measurements and Additional Note: Post-Debridement Measurements/Treatment WC - Nurse 1 - General Ulcer Assessment Start: 02/18/21 09:52 Freq: Status: Active Protocol: HEVER Activity Type Activity Date Activity User E-Sign Co-Sign Detail Recorded Client Recorded Date Recorded By Document 02/18/21 09:52 ML Desktop 02/18/21 09:58 ML 02/18/21 09:52 WC - Today's Visit Information Type of service Follow-up Visit (Physician/ACUPUNCTURE PHYSICIAN ) Arrival Mode Ambulatory Transfer Assistance None Patient Identification Verified (Name & Yes ) Patient Requires Transmission-Based No Precautions Safety Precautions NA Vital Signs Temperature (97.8 F-99.1 F) 97.0 F L Temperature Source Temporal WC - Nurse 1 - General Ulcer Measurement Start: 02/18/21 09:52 Freq: Status: Active Protocol: Activity Type Activity Date Activity User E-Sign Co-Sign Detail Recorded Client Recorded Date Recorded By Document 02/18/21 09:52 ML Desktop 02/18/21 09:58 ML 02/18/21 09:52 Wound Center Nurse 1 #4 Right Dorsal -Current Size (cm) - Length 1 -Current Size (cm) - Width 0.5 -Current Size (cm) - Depth 0.1 -Total Square Cm 0.5 -Exudate Amt Small -Exudate Type Serous -Wound Margin Distinct, Outline Attached -Granulation Amt Small (1-33%) -Necrosis Amt Small (1-33%) -Texture (Marcia-wound Skin Appearance) Assessed -Moisture (Marcia-wound Skin Appearance) Assessed -Color (Marcia-wound Skin Appearance) Assessed -Temperature (Marcia-wound Skin No Abnormality Appearance) (Pt Warm) -Tenderness on Palpation (Marcia-wound No Skin Appearance) -Foul Odor after Cleansing No -Anesthetic Used 4% Lidocaine Solution #3 Left 2nd Toe -Current Size (cm) - Length 0.1 -Current Size (cm) - Width 0.1 -Current Size (cm) - Depth 0.1 -Total Square Cm 0.01 -Exudate Amt Small -Exudate Type Serosanguineous -Wound Margin Distinct, Outline Attached -Granulation Amt Medium (34-66%) -Slough/Fibrin Yes -Necrosis Amt Medium (34-66%) -Necrotic Tissue Type Adherent Slough -Texture (Marcia-wound Skin Appearance) Assessed -Moisture (Marcia-wound Skin Appearance) Assessed -Color (Marcia-wound Skin Appearance) Assessed -Temperature (Marcia-wound Skin No Abnormality Appearance) (Pt Warm) -Ulcer Cleansing Rinsed/ Irrigated with Saline -Foul Odor after Cleansing No -Anesthetic Used 4% Lidocaine Solution #3 Left Calf -Current Size (cm) - Length 0.1 -Current Size (cm) - Width 0.1 -Current Size (cm) - Depth 0.1 -Total Square Cm 0.01 -Exudate Amt None Present -Wound Margin Distinct, Outline Attached -Granulation Amt Large (67-100%) -Granulation Quality [place] -Slough/Fibrin No -Necrosis Amt None Present (0 %) -Texture (Marcia-wound Skin Appearance) Assessed -Moisture (Marcia-wound Skin Appearance) Assessed -Color (Marcia-wound Skin Appearance) Assessed -Temperature (Marcia-wound Skin No Abnormality Appearance) (Pt Warm) -Tenderness on Palpation (Marcia-wound No Skin Appearance) -Ulcer Cleansing Rinsed/ Irrigated with Saline #2 Right Lat Lower Leg -Current Size (cm) - Length 0.1 -Current Size (cm) - Width 0.1 -Current Size (cm) - Depth 0.1 -Total Square Cm 0.01 -Exudate Amt None Present -Granulation Amt None Present (0 %) -Necrosis Amt None Present (0 %) -Texture (Marcia-wound Skin Appearance) Assessed -Moisture (Marcia-wound Skin Appearance) Assessed -Color (Marcia-wound Skin Appearance) Assessed -Temperature (Marcia-wound Skin No Abnormality Appearance) (Pt Warm) -Tenderness on Palpation (Marcia-wound No Skin Appearance) -Ulcer Cleansing Rinsed/ Irrigated with Saline -Foul Odor after Cleansing No -Anesthetic Used 4% Lidocaine Solution Right Calf (cm) 49 Right Ankle (cm) 28 Left Calf (cm) 49.5 Left Ankle (cm) 29 WC - Nurse 2 - General Ulcer CM Notes Start: 02/18/21 09:52 Freq: Status: Active Protocol: Activity Type Activity Date Activity User E-Sign Co-Sign Detail Recorded Client Recorded Date Recorded By Document 02/18/21 13:01 PL [id number] 02/18/21 13:04 PL 02/18/21 13:01 Wound Center Nurse 2 #4 Right Dorsal -Time 10:30 -Correct Patient Yes -Correct Side, Site, Position Yes -Correct Procedure Yes -Procedure Performed Yes -Type of Procedure Debridement -Clinical Debridement Subcutaneous -Tissue Removed Subcutaneous -Post Debridement (cm) - Length 0.2 -Post Debridement (cm) - Width 0.4 -Post Debridement (cm) - Depth 0.1 -Total Square (Post) (cm) 0.08 -Area of Debridement (cm) - Length 0.2 -Area of Debridement (cm) - Width 0.4 -Total Square (Area) (cm) 0.08 -Tunneling No -Undermining/Tunneling No -Circular Undermining No -Wound/Ulcer Outcome Not Healed -Ulcer Cleansing Rinsed/ Irrigated with Saline -Foul Odor after Cleansing No -Bioengineered Tissue No -Bleeding Controlled with Pressure -Treatment Response Procedure Tolerated Well -Debridement - Subq, 1st 20sq cm No #3 Left 2nd Toe -Time 10:30 -Correct Patient Yes -Correct Side, Site, Position Yes -Correct Procedure Yes -Procedure Performed Yes -Type of Procedure Debridement -Clinical Debridement Subcutaneous -Tissue Removed Subcutaneous -Post Debridement (cm) - Length 0.2 -Post Debridement (cm) - Width 0.3 -Post Debridement (cm) - Depth 1 -Total Square (Post) (cm) 0.06 -Area of Debridement (cm) - Length 0.2 -Area of Debridement (cm) - Width 0.3 -Total Square (Area) (cm) 0.06 -Tunneling No -Undermining/Tunneling No -Circular Undermining No -Wound/Ulcer Outcome Not Healed -Ulcer Cleansing Rinsed/ Irrigated with Saline -Foul Odor after Cleansing Yes, Due to Product Use -Bioengineered Tissue No -Bleeding Controlled with Pressure -Treatment Response Procedure Tolerated Well -Debridement - Subq, 1st 20sq cm No #3 Left Calf -Procedure Performed No -Wound/Ulcer Outcome Healed- Epithelialized #2 Right Lat Lower Leg -Time 10:30 -Correct Patient Yes -Correct Side, Site, Position Yes -Correct Procedure Yes -Procedure Performed Yes -Type of Procedure Debridement -Clinical Debridement Subcutaneous -Tissue Removed Subcutaneous -Post Debridement (cm) - Length 24 -Post Debridement (cm) - Width 12 -Post Debridement (cm) - Depth 0.1 -Total Square (Post) (cm) 288 -Area of Debridement (cm) - Length 2.4 -Area of Debridement (cm) - Width 1.2 -Total Square (Area) (cm) 2.88 -Tunneling No -Undermining/Tunneling No -Circular Undermining No -Wound/Ulcer Outcome Not Healed -Ulcer Cleansing Rinsed/ Irrigated with Saline -Foul Odor after Cleansing No -Bioengineered Tissue No -Bleeding Controlled with Pressure -Treatment Response Procedure Tolerated Well -Debridement - Subq, 1st 20sq cm Yes - Nurse 3 - General Ulcer D/C NN Start: 02/18/21 09:52 Freq: Status: Active Protocol: Activity Type Activity Date Activity User E-Sign Co-Sign Detail Recorded Client Recorded Date Recorded By Document 02/18/21 11:42 ADRI [id number] 02/18/21 11:42 ADRI 02/18/21 11:42 Wound Care Nurse 3 Left -Multi-Layered Wrap Application Unna Boot - Bilateral ($) -Unna Boots (Bilat) ($) 2 Pain Scale: 0-10 Numeric Is Patient Pain Free? Yes WC - Visit Discharge Discharge Condition Stable Ambulatory Status Ambulatory Transportation Private Auto Additional Wound Wound debrided: Right dorsal foot ulcer Laterality: Right Type of Debridement: Excisional debridement Anesthesia Used: 4% Lidocaine Solution Depth: in the subcutaneous layer Percentage of wound debrided: 100 Instrument Used: 3mm curette Tissue Removed: Slough and devitalized tissue Severity: Fat Layer Exposed Amount of bleeding with debridement: Mild Bleeding Controlled with: Pressure Patient tolerated procedure: Patient tolerated procedure well Additional Wound Wound debrided: Left toe ulcer Laterality: Left Type of Debridement: Excisional debridement Anesthesia Used: 4% Lidocaine Solution Depth: in the subcutaneous layer Percentage of wound debrided: 100 Instrument Used: 3mm curette Tissue Removed: Slough and devitalized tissue Severity: Fat Layer Exposed Amount of bleeding with debridement: Mild Bleeding Controlled with: Pressure Patient tolerated procedure: Patient tolerated procedure well Assessment/Plan Assessment/Plan (1) Venous stasis ulcer with varicose veins of right lower extremity: CODE(S): I83.019 - Varicose veins of right lower extremity with ulcer of unspecified site; L97.919 - Non-pressure chronic ulcer of unspecified part of right lower leg with unspecified severity (2) Venous stasis ulcer of left lower leg with edema of left lower leg: CODE(S): I83.029 - Varicose veins of left lower extremity with ulcer of unspecified site; I83.892 - Varicose veins of left lower extremity with other complications; L97.929 - Non-pressure chronic ulcer of unspecified part of left lower leg with unspecified severity; R60.9 - Edema, unspecified (3) Ulcer of right lower extremity with fat layer exposed: CODE(S): L97.912 - Non-pressure chronic ulcer of unspecified part of right lower leg with fat layer exposed (4) Allergic drug rash: CODE(S): L27.0 - Generalized skin eruption due to drugs and medicaments taken internally (5) Ulcer of left lower extremity with fat layer exposed: CODE(S): L97.922 - Non-pressure chronic ulcer of unspecified part of left lower leg with fat layer exposed (6) Venous insufficiency of both lower extremities: CODE(S): I87.2 - Venous insufficiency (chronic) (peripheral) (7) Dermatitis: CODE(S): L30.9 - Dermatitis, unspecified (8) Bilateral lower extremity edema: CODE(S): R60.0 - Localized edema (9) Staphylococcal infection of skin: CODE(S): L08.9 - Local infection of the skin and subcutaneous tissue, unspecified; B95.8 - Unspecified staphylococcus as the cause of diseases classified elsewhere PLAN: The patient's bilateral lower extremity ulcers have significantly improved. Debridement performed today in clinic as annotated above. Aquacel Ag applied to the open ulcers of his right and left lower extremities. Bilateral Unna boots applied for the dry skin and scabbing of the bilateral lower extremities. He has completed a prednisone taper and a 10-day course of Bactrim DS. Given the duration of the patient's anterior left lower extremity ulcer and failure of the wound to respond to standard wound care, we will apply for advanced skin substitutes (Puraply, Apligraf). Per Mani JOHNSTON RN, these were denied. At home wound-care instructions: Keep Unna boots clean and dry. Cover with a cast cover or plastic bag when showering, taking caution when showering to avoid slips/falls. If anytime you experience discomfort in the legs or toes while wearing the Unna boots, elevate feet. Discomfort should diminish as leg swelling improves. If you develop persistent numbness/tingling or discoloration of the toes that does not improve with leg elevation, contact the wound healing center and/or remove your Unna boots. Continue mupirocin ointment BID-TID to the exposed ulcers on the toes. If mupirocin ointment is not available, you may cover these with Aquacel Ag. Off-loading: The patient has been placed on modified, intermittent bed rest. The patient was instructed to avoid pressure and friction on the affected areas. Reposition every 2 hours at minimum. Avoid prolonged standing, walking, and/or dangling of legs. When seated, feet should be elevated at chest level. Frequent, short periods of ambulation are encouraged to promote blood flow and prevent blood clots. Diet: Patient encouraged to increase protein intake while taking caution to avoid high carbohydrate and/or sugar intake. Smoking: The risks of smoking and benefits of smoking cessation were discussed with the patient today. The patient is encouraged to quit smoking. If smoking cessation aids are desired, the patient should contact their primary care provider to discuss appropriate options. Labs/cultures/imaging: Left leg cultures from 01/07/2021 were positive for rare gram-positive rods, likely skin contaminant. Right leg cultures from 01/07/2021 were negative. No additional antibiotics were initiated. He completed a 10-day course of Bactrim DS empirically for suspected MRSA infection. His culture from 01/28/2021 revealed 1+ Staph aureus, susceptible to Bactrim. Bilateral lower extremity venous studies were significant for the following: Right saphenofemoral junction is incompetent. Right great saphenous vein appears segmentally incompetent. The left great saphenous vein appears incompetent below the knee. Bilateral lower extremity arterial studies revealed no evidence of significant arterial occlusive disease in the lower extremities. He was seen by dermatology (Jenny Michel) on 02/08/2021. Biopsies were taken from both lower extremities. The patient's skin biopsy results were reviewed, as follows: Right proximal pretibial region: Prominent stasis changes Left distal pretibial region: Subacute spongiotic dermatitis with stasis changes. Comment: This cutaneous pattern of injury is consistent with an eczematous process. The differential includes stasis dermatitis versus stasis changes with a concurrent eczematous process such as nummular or contact dermatitis. No changes were made in the patient's treatment plan in regards to these findings. He is to follow-up with dermatology on Sunday. Routine baseline lab work ordered (CBCD, CMP, ESR, prealbumin, hemoglobin A1c). WBC and ESR normal, kidney and liver function unremarkable, blood glucose slightly elevated, hemoglobin A1c 5.5%, prealbumin low. Follow-up: Patient was given another work excuse through 02/25/2021, due to the nature of his job requiring long periods of standing. He also has several upcoming appointments for management of his conditions. He does not feel he would be able to wear his work boots while wearing Unna boots, or keep Unna boots clean/dry. I am hopeful that he will be able to return to work following next week's appointment. Referral made to Vascular specialist for evaluation of venous insufficiency. Return to the clinic in 1 week for re-evaluation with a provider. Return sooner or report to the emergency room should symptoms worsen, or new symptoms arise. Note: [employer] speech recognition market risk manager software was used to create portions of this document. Sound-alike and misspelled words, as well as other market risk manager errors may be contained in the documentation.
[2021-02-22 12:56] VITALS: RESP 20; TEMP 37
[2021-02-25 10:02] VITALS: BP 151/78; PULSE 54; TEMP 36.1
--- NOTE | 2021-02-25 11:46 | PCM.WC.PN ---
History of Present Illness Date of Service: 02/25/21 Chief Complaint: Left leg wound, rash History of Wound: Obdulio is a pleasant 55-year-old male who presents to the wound healing center for an initial evaluation of a left leg ulcer. He has a past medical history significant for hypertension and hyperlipidemia. He is a pack per day smoker and has been practically his whole life. He also consumes alcohol regularly. He is not established with a primary care provider, and does not take any medications. He previously was on medication for hypertension, but stated that these medications made him dizzy so he stopped taking them. He was also previously treated asthma or COPD with an inhaler, but does not recall specific details. He has never been diagnosed with diabetes, chronic kidney disease, or peripheral vascular disease. He states that he scraped his left leon when tripping over a hose in February 2020. Since that time he has had a wound on his left leon, which frequently scabs over then reopens. He would use triple antibiotic ointment and a gauze bandage over his wound. At one point he also used an antifungal cream, as he felt his wound may have been ringworm. He also began using alcohol wipes to clean the wound. In November 2020, he felt that the wound was becoming infected. He does report he had gone swimming in a [place] around that time. He was seen in the emergency department at [facility] on 12/27/2020. A left lower extremity venous ultrasound revealed no evidence of DVT in the left lower extremity; the left great saphenous vein appeared patent and compressible segmentally. He was started on doxycycline 100 mg twice daily x10 days. He returned to the emergency room on 01/02/2021. He states he had developed a painful rash with starting doxycycline, extending from his abdomen to his toes, but was told to continue taking the doxycycline. There is no mention of a rash in his ER documentation from 01/02/2021. He completed his course of doxycycline yesterday, and feels his rash has slightly improved since that time. He still reports discomfort in the legs. He does not feel they are more swollen than his baseline. His labs from his ER visits were grossly unremarkable aside from an elevated blood glucose. He does not use compression to his lower extremities. His job requires long hours of standing. He does not elevate his lower extremities often. He does sleep in a bed at night. The patient denies fever, chills, general malaise, or poor appetite. The patient has not had increased redness, swelling, or purulent/malodorous drainage from affected area. Progress of Wound: The patient's wounds are significantly improved in size and appearance this week. He reports a significant decrease in his lower extremity pain. He has been tolerating dressings and Unna boots well. He has 2 open ulcerations of the right lower extremity, and a eczematous area of the anterior left lower extremity. His right lower extremity has several areas of dry/flaky skin. The patient denies fever, general malaise, or poor appetite. The patient has not had increased redness, swelling, or purulent/malodorous drainage from affected areas. Per patient, he was given an ointment by his labor custodian at [facility] to apply to the eczematous area of the anterior left lower extremity. He has not yet started this ointment due to the use of Unna boots. Objective Data Objective Data Vital Signs: Vital Signs Temp Pulse Resp BP 97.0 F L 54 L 20 H 151/78 H 02/25/21 10:02 02/25/21 10:02 02/22/21 12:56 02/25/21 10:02 Charges/Coding Procedures Integumentary [id number]: [id number] Diana subq tissue 20 sq cm/< Physical Exam Const alert, no apparent distress and healthy appearing General Appearance: cooperative, comfortable and well kempt Orientation / Consciousness: awake Nutritional Appearance: obese HEENT Head and Scalp: normocephalic and atraumatic Resp normal respiratory effort Extremity normal capillary refill and no calf tenderness General Extremity: edema bilateral lower extremity Details: trace; Negative for clubbing or cyanosis Peripheral Pulses: Yes dorsalis pedis pulses present bilateral 2+ Skin Rashes: rashes noted Anterior left lower extremity Narrative: Dermatitic rash dry nontender Wounds: wounds noted No malodorous Wound Narrative: Ulcers of the left lower extremity are healed. He continues to have a dermatitic rash to the anterior left lower extremity. Ulcers of the right lower extremity are improved in size and appearance. He has 1 anterior RLE ulcer and 1 lateral right ankle ulcer remaining, which are significantly tender to debridement. No purulent or malodorous drainage. No periulcer erythema or edema. No periulcer warmth. He has several areas of dry/flaky skin of the right lower extremity. Nails: Negative for clubbing Neuro oriented x3, moves all extremities and no focal motor deficits Psych mental status grossly normal, cooperative and affect normal Debridement Note Debridement Note Wound debrided: Anterior RLE Laterality: Right Type of Debridement: Excisional debridement Anesthesia Used: 5% Lidocaine Gel Depth: in the subcutaneous layer Percentage of wound debrided: 100 Instrument Used: 3mm curette Tissue Removed: Slough and devitalized tissue Severity: Fat Layer Exposed Amount of bleeding with debridement: Mild Bleeding Controlled with: Pressure Patient tolerated procedure: Patient tolerated procedure well Post-Debridement Measurements and Additional Note: Post-Debridement Measurements/Treatment - Nurse 1 - General Ulcer Assessment Start: 02/18/21 09:52 Freq: Status: Active Protocol: HEVER Activity Type Activity Date Activity User E-Sign Co-Sign Detail Recorded Client Recorded Date Recorded By Document 02/18/21 09:52 ML Desktop 02/18/21 09:58 ML Document 02/22/21 12:56 DL [id number] 02/22/21 13:03 DL Document 02/25/21 10:02 KR Desktop 02/25/21 10:08 KR 02/18/21 02/22/21 02/25/21 09:52 12:56 10:02 - Today's Visit Information Type of service Follow-up Visit Nurse-only Follow-up Visit (Physician/MOTOR BRAKEMAN Visit (Physician/MOTOR BRAKEMAN ) ) Arrival Mode Ambulatory Ambulatory Ambulatory Transfer Assistance None None Patient Identification Verified (Name & Yes Yes Yes ) Patient Requires Transmission-Based No No Precautions Safety Precautions NA Vital Signs Temperature (97.8 F-99.1 F) 97.0 F L 98.6 F 97.0 F L Temperature Source Temporal Temporal Temporal Pulse Rate (60-100) 54 L Pulse Location Monitor Respiratory Rate (12-18) 20 H Respiratory rate source Observation Blood Pressure (90/60-120/80) 151/78 H Blood Pressure Mean (mm Hg) 102 Source Monitor Position Semi-Fowlers Blood Pressure Location Left Arm History Since Last Visit- (Skip if this is Patient's initial visit) Have you changed medications since your No No last visit? Any new allergies or adverse reactions No No Had a fall/change in ADL's that may No No increase risk of falls Signs or symptoms of abuse and/or No No neglect since last visit Have you been in the hospital since your No No last visit? Has dressing in place as prescribed Yes Yes Has compression in place as prescribed Yes Yes Has offloadiing in place as prescribed N/A N/A Experienced any changes in pain level or No No management Left Footwear Regular Shoe Right Footwear Regular Shoe Pain Scale: 0-10 Numeric Is Patient Pain Free? Yes Yes WC - Nurse 1 - General Ulcer Measurement Start: 02/18/21 09:52 Freq: Status: Active Protocol: Activity Type Activity Date Activity User E-Sign Co-Sign Detail Recorded Client Recorded Date Recorded By Document 02/18/21 09:52 ML Desktop 02/18/21 09:58 ML Document 02/22/21 12:56 DL [id number] 02/22/21 13:03 DL Document 02/25/21 10:02 KR Desktop 02/25/21 10:08 KR 02/18/21 02/22/21 02/25/21 09:52 12:56 10:02 Wound Center Nurse 1 #4 Right Dorsal -Current Size (cm) - Length 1 0.9 -Current Size (cm) - Width 0.5 1.2 -Current Size (cm) - Depth 0.1 0.1 -Total Square Cm 0.5 1.08 -Photo Taken No -Exudate Amt Small None Present None Present -Exudate Type Serous -Wound Margin Distinct, Flat & Intact Distinct, Outline Outline Attached Attached -Granulation Amt Small (1-33%) Large (67-100%) None Present (0 %) -Granulation Quality Pale -Necrosis Amt Small (1-33%) None Present (0 None Present (0 %) %) -Structure Exposed N/A -Texture (Marcia-wound Skin Appearance) Assessed No Abnormality Assessed, Scarring -Moisture (Marcia-wound Skin Appearance) Assessed Dry/Scaly Assessed,Dry/ Scaly -Color (Marcia-wound Skin Appearance) Assessed Hemosiderin No Abnormality, Staining Assessed -Temperature (Marcia-wound Skin No Abnormality No Abnormality No Abnormality Appearance) (Pt Warm) (Pt Warm) (Pt Warm) -Tenderness on Palpation (Marcia-wound No No No Skin Appearance) -Ulcer Cleansing Soap and Water Rinsed/ Irrigated with Saline -Foul Odor after Cleansing No No -Anesthetic Used 4% Lidocaine 5% Lidocaine Solution Gel #3 Left 2nd Toe -Current Size (cm) - Length 0.1 0.1 -Current Size (cm) - Width 0.1 0.1 -Current Size (cm) - Depth 0.1 0.1 -Total Square Cm 0.01 0.01 -Photo Taken No -Exudate Amt Small None Present None Present -Exudate Type Serosanguineous -Wound Margin Distinct, Distinct, Distinct, Outline Outline Outline Attached Attached Attached -Granulation Amt Medium (34-66%) None Present (0 None Present (0 %) %) -Slough/Fibrin Yes -Necrosis Amt Medium (34-66%) None Present (0 None Present (0 %) %) -Necrotic Tissue Type Adherent Slough Eschar -Structure Exposed N/A -Texture (Marcia-wound Skin Appearance) Assessed Scarring Assessed, Scarring -Moisture (Marcia-wound Skin Appearance) Assessed Dry/Scaly Assessed,Dry/ Scaly -Color (Marcia-wound Skin Appearance) Assessed Hemosiderin No Abnormality, Staining Assessed -Temperature (Marcia-wound Skin No Abnormality No Abnormality No Abnormality Appearance) (Pt Warm) (Pt Warm) (Pt Warm) -Tenderness on Palpation (Marcia-wound No No Skin Appearance) -Ulcer Cleansing Rinsed/ Not Cleansed Rinsed/ Irrigated with Irrigated with Saline Saline -Foul Odor after Cleansing No No No -Anesthetic Used 4% Lidocaine 5% Lidocaine Solution Gel #3 Left Calf -Current Size (cm) - Length 0.1 -Current Size (cm) - Width 0.1 -Current Size (cm) - Depth 0.1 -Total Square Cm 0.01 -Exudate Amt None Present -Wound Margin Distinct, Outline Attached -Granulation Amt Large (67-100%) -Granulation Quality Ferris -Slough/Fibrin No -Necrosis Amt None Present (0 %) -Texture (Marcia-wound Skin Appearance) Assessed -Moisture (Marcia-wound Skin Appearance) Assessed -Color (Marcia-wound Skin Appearance) Assessed -Temperature (Marcia-wound Skin No Abnormality Appearance) (Pt Warm) -Tenderness on Palpation (Marcia-wound No Skin Appearance) -Ulcer Cleansing Rinsed/ Irrigated with Saline #2 Right Lat Lower Leg -Current Size (cm) - Length 0.1 0.3 -Current Size (cm) - Width 0.1 0.3 -Current Size (cm) - Depth 0.1 0.1 -Total Square Cm 0.01 0.09 -Photo Taken No -Exudate Amt None Present None Present Small -Exudate Type Serosanguineous -Wound Margin Distinct, Distinct, Outline Outline Attached Attached -Granulation Amt None Present (0 None Present (0 Small (1-33%) %) %) -Granulation Quality Red -Necrosis Amt None Present (0 Large (67-100%) None Present (0 %) %) -Necrotic Tissue Type Eschar -Structure Exposed N/A -Texture (Marcia-wound Skin Appearance) Assessed Scarring Assessed, Scarring -Moisture (Marcia-wound Skin Appearance) Assessed Dry/Scaly Assessed,Dry/ Scaly -Color (Marcia-wound Skin Appearance) Assessed Hemosiderin No Abnormality, Staining Assessed -Temperature (Marcia-wound Skin No Abnormality No Abnormality No Abnormality Appearance) (Pt Warm) (Pt Warm) (Pt Warm) -Tenderness on Palpation (Marcia-wound No No No Skin Appearance) -Ulcer Cleansing Rinsed/ Soap and Water Rinsed/ Irrigated with Irrigated with Saline Saline -Foul Odor after Cleansing No No No -Anesthetic Used 4% Lidocaine 5% Lidocaine Solution Gel Right Calf (cm) 49 48 44.9 Right Ankle (cm) 28 26.5 28.5 Right Foot (cm) 47 Left Calf (cm) 49.5 28.4 45 Left Ankle (cm) 29 25.9 WC - Nurse 2 - General Ulcer CM Notes Start: 02/18/21 09:52 Freq: Status: Active Protocol: Activity Type Activity Date Activity User E-Sign Co-Sign Detail Recorded Client Recorded Date Recorded By Document 02/18/21 13:01 ANGELA [id number] 02/18/21 13:04 ANGELA 02/18/21 13:01 Wound Center Nurse 2 #4 Right Dorsal -Time 10:30 -Correct Patient Yes -Correct Side, Site, Position Yes -Correct Procedure Yes -Procedure Performed Yes -Type of Procedure Debridement -Clinical Debridement Subcutaneous -Tissue Removed Subcutaneous -Post Debridement (cm) - Length 0.2 -Post Debridement (cm) - Width 0.4 -Post Debridement (cm) - Depth 0.1 -Total Square (Post) (cm) 0.08 -Area of Debridement (cm) - Length 0.2 -Area of Debridement (cm) - Width 0.4 -Total Square (Area) (cm) 0.08 -Tunneling No -Undermining/Tunneling No -Circular Undermining No -Wound/Ulcer Outcome Not Healed -Ulcer Cleansing Rinsed/ Irrigated with Saline -Foul Odor after Cleansing No -Bioengineered Tissue No -Bleeding Controlled with Pressure -Treatment Response Procedure Tolerated Well -Debridement - Subq, 1st 20sq cm No #3 Left 2nd Toe -Time 10:30 -Correct Patient Yes -Correct Side, Site, Position Yes -Correct Procedure Yes -Procedure Performed Yes -Type of Procedure Debridement -Clinical Debridement Subcutaneous -Tissue Removed Subcutaneous -Post Debridement (cm) - Length 0.2 -Post Debridement (cm) - Width 0.3 -Post Debridement (cm) - Depth 1 -Total Square (Post) (cm) 0.06 -Area of Debridement (cm) - Length 0.2 -Area of Debridement (cm) - Width 0.3 -Total Square (Area) (cm) 0.06 -Tunneling No -Undermining/Tunneling No -Circular Undermining No -Wound/Ulcer Outcome Not Healed -Ulcer Cleansing Rinsed/ Irrigated with Saline -Foul Odor after Cleansing Yes, Due to Product Use -Bioengineered Tissue No -Bleeding Controlled with Pressure -Treatment Response Procedure Tolerated Well -Debridement - Subq, 1st 20sq cm No #3 Left Calf -Procedure Performed No -Wound/Ulcer Outcome Healed- Epithelialized #2 Right Lat Lower Leg -Time 10:30 -Correct Patient Yes -Correct Side, Site, Position Yes -Correct Procedure Yes -Procedure Performed Yes -Type of Procedure Debridement -Clinical Debridement Subcutaneous -Tissue Removed Subcutaneous -Post Debridement (cm) - Length 24 -Post Debridement (cm) - Width 12 -Post Debridement (cm) - Depth 0.1 -Total Square (Post) (cm) 288 -Area of Debridement (cm) - Length 2.4 -Area of Debridement (cm) - Width 1.2 -Total Square (Area) (cm) 2.88 -Tunneling No -Undermining/Tunneling No -Circular Undermining No -Wound/Ulcer Outcome Not Healed -Ulcer Cleansing Rinsed/ Irrigated with Saline -Foul Odor after Cleansing No -Bioengineered Tissue No -Bleeding Controlled with Pressure -Treatment Response Procedure Tolerated Well -Debridement - Subq, 1st 20sq cm Yes WC - Nurse 3 - General Ulcer D/C NN Start: 02/18/21 09:52 Freq: Status: Active Protocol: Activity Type Activity Date Activity User E-Sign Co-Sign Detail Recorded Client Recorded Date Recorded By Document 02/18/21 11:42 KR [id number] 02/18/21 11:42 KR Document 02/22/21 12:56 DL [id number] 02/22/21 13:03 DL Edit Result 02/22/21 12:56 DL (1) [id number] 02/22/21 13:08 DL Document 02/25/21 10:38 AK Desktop 02/25/21 10:41 AK (1) #4 Right Dorsal - Other Dressing => aquacel EX #3 Left 2nd Toe - Other Dressing => Aquacel EX #2 Right Lat Lower Leg - Other Dressing => aquacel Ex 02/18/21 02/22/21 02/25/21 11:42 12:56 10:38 #4 Right Dorsal -Ulcer Cleansing Rinsed/ Irrigated with Saline -Foul Odor after Cleansing No -Negative Pressure Wound Therapy N/A -Primary Dressing Applied Aquacel AG 4x4 -Other Dressing aquacel EX -Aquacel AG 4x4 0 #3 Left 2nd Toe -Ulcer Cleansing Rinsed/ Irrigated with Saline -Foul Odor after Cleansing No -Negative Pressure Wound Therapy N/A -Primary Dressing Applied Aquacel AG 4x4 -Other Dressing Aquacel EX -Aquacel AG 4x4 0 #2 Right Lat Lower Leg -Ulcer Cleansing Rinsed/ Irrigated with Saline -Foul Odor after Cleansing No -Negative Pressure Wound Therapy N/A -Primary Dressing Applied Aquacel AG 4x4 -Other Dressing aquacel Ex -Aquacel AG 4x4 0 Wound Care Nurse 3 Right -Multi-Layered Wrap Application Multi-Layer Comp - Right ($ ) Left -Lotion applied to leg before No compression wrap -Multi-Layered Wrap Application Unna Boot - Unna Boot - Bilateral ($) Bilateral ($) -Unna Boots (Bilat) ($) 2 1 -Tubular Bandage Double Layer -Size of Tubigrip Used Size E -Size E ($) 2 Vital Signs Temperature (97.8 F-99.1 F) 98.6 F Temperature Source Temporal Respiratory Rate (12-18) 20 H Respiratory rate source Observation Pain Scale: 0-10 Numeric Is Patient Pain Free? Yes Yes WC - Visit Discharge Discharge Condition Stable Stable Stable Ambulatory Status Ambulatory Ambulatory Ambulatory Transportation Private Auto Private Auto Private Auto Medication Reconcilliation completed & No provided to patient/care provider Clinical Summary of Care Provided Yes Additional Wound Wound debrided: Lateral right ankle ulcer Laterality: Right Type of Debridement: Excisional debridement Anesthesia Used: 5% Lidocaine Gel Depth: in the subcutaneous layer Percentage of wound debrided: 100 Instrument Used: 3mm curette Tissue Removed: Slough and devitalized tissue Severity: Fat Layer Exposed Bleeding Controlled with: Pressure Patient tolerated procedure: Patient tolerated procedure well Assessment/Plan Assessment/Plan (1) Venous stasis ulcer with varicose veins of right lower extremity: CODE(S): I83.019 - Varicose veins of right lower extremity with ulcer of unspecified site; L97.919 - Non-pressure chronic ulcer of unspecified part of right lower leg with unspecified severity (2) Venous stasis ulcer of left lower leg with edema of left lower leg: CODE(S): I83.029 - Varicose veins of left lower extremity with ulcer of unspecified site; I83.892 - Varicose veins of left lower extremity with other complications; L97.929 - Non-pressure chronic ulcer of unspecified part of left lower leg with unspecified severity; R60.9 - Edema, unspecified (3) Ulcer of right lower extremity with fat layer exposed: CODE(S): L97.912 - Non-pressure chronic ulcer of unspecified part of right lower leg with fat layer exposed (4) Allergic drug rash: CODE(S): L27.0 - Generalized skin eruption due to drugs and medicaments taken internally (5) Ulcer of left lower extremity with fat layer exposed: CODE(S): L97.922 - Non-pressure chronic ulcer of unspecified part of left lower leg with fat layer exposed (6) Venous insufficiency of both lower extremities: CODE(S): I87.2 - Venous insufficiency (chronic) (peripheral) (7) Dermatitis: CODE(S): L30.9 - Dermatitis, unspecified (8) Bilateral lower extremity edema: CODE(S): R60.0 - Localized edema (9) Staphylococcal infection of skin: CODE(S): L08.9 - Local infection of the skin and subcutaneous tissue, unspecified; B95.8 - Unspecified staphylococcus as the cause of diseases classified elsewhere PLAN: The patient's bilateral lower extremity ulcers have significantly improved. Debridement performed today in clinic as annotated above. Aquacel Ag applied to the open ulcers of his right lower extremity. 3M wrap applied to the right lower extremity. Double Tubigrip's applied to the left lower extremity. He has completed a prednisone taper and a 10-day course of Bactrim DS. Mupirocin ointment will be discontinued today. At home wound-care instructions: Right lower extremity: Keep 3M wrap clean and dry. Cover with a cast cover or plastic bag when showering, taking caution when showering to avoid slips/falls. If anytime you experience discomfort in the legs or toes while wearing the 3M wrap, elevate feet. Discomfort should diminish as leg swelling improves. If you develop persistent numbness/tingling or discoloration of the toes that does not improve with leg elevation, contact the wound healing center and/or remove your 3M wrap. Left lower extremity: Apply prescription ointment from labor custodian to affected area of the left lower extremity as directed. Wear double Tubigrip's to the left lower extremity daily for compression. These may be removed at bedtime, but should be reapplied prior to getting out of bed in the morning. Off-loading: The patient has been placed on modified, intermittent bed rest. The patient was instructed to avoid pressure and friction on the affected areas. Reposition every 2 hours at minimum while seated or laying down. Avoid prolonged standing, walking, and/or dangling of legs. When seated, feet should be elevated at chest level. Frequent, short periods of ambulation are encouraged to promote blood flow and prevent blood clots. Diet: Patient encouraged to increase protein intake while taking caution to avoid high carbohydrate and/or sugar intake. Smoking: The risks of smoking and benefits of smoking cessation were discussed with the patient today. The patient is encouraged to quit smoking. If smoking cessation aids are desired, the patient should contact their primary care provider to discuss appropriate options. Labs/cultures/imaging: Left leg cultures from 01/07/2021 were positive for rare gram-positive rods, likely skin contaminant. Right leg cultures from 01/07/2021 were negative. No additional antibiotics were initiated. He completed a 10-day course of Bactrim DS empirically for suspected MRSA infection. His culture from 01/28/2021 revealed 1+ Staph aureus, susceptible to Bactrim. Bilateral lower extremity venous studies were significant for the following: Right saphenofemoral junction is incompetent. Right great saphenous vein appears segmentally incompetent. The left great saphenous vein appears incompetent below the knee. Bilateral lower extremity arterial studies revealed no evidence of significant arterial occlusive disease in the lower extremities. He was seen by dermatology (Jenny Michel) on 02/08/2021. Biopsies were taken from both lower extremities. The patient's skin biopsy results were reviewed, as follows: Right proximal pretibial region: Prominent stasis changes Left distal pretibial region: Subacute spongiotic dermatitis with stasis changes. Comment: This cutaneous pattern of injury is consistent with an eczematous process. The differential includes stasis dermatitis versus stasis changes with a concurrent eczematous process such as nummular or contact dermatitis. Per patient, he was given an ointment to apply to the affected area of the left lower extremity. Routine baseline lab work ordered (CBCD, CMP, ESR, prealbumin, hemoglobin A1c). WBC and ESR normal, kidney and liver function unremarkable, blood glucose slightly elevated, hemoglobin A1c 5.5%, prealbumin low. Follow-up: Patient was given another work excuse through 03/04/2021, due to the nature of his job requiring long periods of standing and/or prolonged ambulation. I am hopeful that he will tolerate double Tubigrip's well (for compression), and will be able to return to work following next week's appointment. Return to the clinic in 1 week for re-evaluation with a provider. Return sooner or report to the emergency room should symptoms worsen, or new symptoms arise. Note: [employer] speech recognition administrative support assistant software was used to create portions of this document. Sound-alike and misspelled words, as well as other administrative support assistant errors may be contained in the documentation.
[2021-03-04 10:12] VITALS: BP 132/75; PULSE 67; TEMP 36.2
--- NOTE | 2021-03-04 14:15 | PN.PCM_ITS ---
History of Present Illness Date of Service: 03/04/21 Chief Complaint: Left leg wound, rash History of Wound: Obdulio is a pleasant 55-year-old male who presents to the wound healing center for an initial evaluation of a left leg ulcer. He has a past medical history significant for hypertension and hyperlipidemia. He is a pack per day smoker and has been practically his whole life. He also consumes alcohol regularly. He is not established with a primary care provider, and does not take any medications. He previously was on medication for hypertension, but stated that these medications made him dizzy so he stopped taking them. He was also previously treated asthma or COPD with an inhaler, but does not recall specific details. He has never been diagnosed with diabetes, chronic kidney disease, or peripheral vascular disease. He states that he scraped his left leon when tripping over a hose in February 2020. Since that time he has had a wound on his left leon, which frequently scabs over then reopens. He would use triple antibiotic ointment and a gauze bandage over his wound. At one point he also used an antifungal cream, as he felt his wound may have been ringworm. He also began using alcohol wipes to clean the wound. In November 2020, he felt that the wound was becoming infected. He does report he had gone swimming in a [place] around that time. He was seen in the emergency department at [facility] on 12/27/2020. A left lower extremity venous ultrasound revealed no evidence of DVT in the left lower extremity; the left great saphenous vein appeared patent and compressible segmentally. He was started on doxycycline 100 mg twice daily x10 days. He returned to the emergency room on 01/02/2021. He states he had developed a painful rash with starting doxycycline, extending from his abdomen to his toes, but was told to continue taking the doxycycline. There is no mention of a rash in his ER documentation from 01/02/2021. He completed his course of doxycycline yesterday, and feels his rash has slightly improved since that time. He still reports discomfort in the legs. He does not feel they are more swollen than his baseline. His labs from his ER visits were grossly unremarkable aside from an elevated blood glucose. He does not use compression to his lower extremities. His job requires long hours of standing. He does not elevate his lower extremities often. He does sleep in a bed at night. The patient denies fever, chills, general malaise, or poor appetite. The patient has not had increased redness, swelling, or purulent/malodorous drainage from affected area. Progress of Wound: The patient's wounds are healed today. He continues to have dry flaky skin of bilateral lower extremities. He tolerated the use of double Tubigrips to the left lower extremity well. The patient denies fever, chills, general malaise, or poor appetite. The patient has not had increased redness, swelling, or purulent/malodorous drainage from affected area. He overall is feeling very well, and is eager to return to work. Objective Data Objective Data Vital Signs: Vital Signs Temp Pulse Resp BP 97.1 F L 67 20 H 132/75 H 03/04/21 10:12 03/04/21 10:12 02/22/21 12:56 03/04/21 10:12 Charges/Coding Visit Charges Office Visits / Consults: [id number] OV L3 Est Physical Exam Const alert, no apparent distress and healthy appearing General Appearance: cooperative, comfortable and well kempt Orientation / Consciousness: awake Nutritional Appearance: obese HEENT Head and Scalp: normocephalic and atraumatic Resp normal respiratory effort Extremity normal capillary refill and no calf tenderness General Extremity: Negative for clubbing, cyanosis or edema Peripheral Pulses: Yes dorsalis pedis pulses present bilateral 2+ Skin Rashes: No rashes noted Wounds: Negative for wounds noted Wound Narrative: Ulcers of the left lower extremity are healed. His dermatitic rash to the anterior left lower extremity is improved. Ulcers of the right lower extremity are healed today as well. He has several areas of dry/flaky skin of the bilateral lower extremities. Nails: Negative for clubbing Neuro oriented x3, moves all extremities and no focal motor deficits Psych mental status grossly normal, cooperative and affect normal Debridement Note Debridement Note No debridement was completed: No debridement was completed today Assessment/Plan Assessment/Plan (1) Venous stasis ulcer with varicose veins of right lower extremity: CODE(S): I83.019 - Varicose veins of right lower extremity with ulcer of unspecified site; L97.919 - Non-pressure chronic ulcer of unspecified part of right lower leg with unspecified severity (2) Venous stasis ulcer of left lower leg with edema of left lower leg: CODE(S): I83.029 - Varicose veins of left lower extremity with ulcer of unspecified site; I83.892 - Varicose veins of left lower extremity with other complications; L97.929 - Non-pressure chronic ulcer of unspecified part of left lower leg with unspecified severity; R60.9 - Edema, unspecified (3) Ulcer of right lower extremity with fat layer exposed: CODE(S): L97.912 - Non-pressure chronic ulcer of unspecified part of right lower leg with fat layer exposed (4) Allergic drug rash: CODE(S): L27.0 - Generalized skin eruption due to drugs and medicaments taken internally (5) Ulcer of left lower extremity with fat layer exposed: CODE(S): L97.922 - Non-pressure chronic ulcer of unspecified part of left lower leg with fat layer exposed (6) Venous insufficiency of both lower extremities: CODE(S): I87.2 - Venous insufficiency (chronic) (peripheral) (7) Dermatitis: CODE(S): L30.9 - Dermatitis, unspecified (8) Bilateral lower extremity edema: CODE(S): R60.0 - Localized edema PLAN: The patient's bilateral lower extremity ulcers are healed today. His staphylococcal infection and dermatitis have resolved. No debridement was performed today. Lotion applied to the bilateral lower extremities due to dry flaky skin of both legs. Double Tubigrip's were applied to the bilateral lower extremities for compression. Prescription given for compression stockings (30 to 40 mmHg). He will be discharged from the wound healing center. He will be released to return to work today. (He does not work weekends at his job. His first day of work will be on 03/07/2021). As preventive measures: Apply lotion to the bilateral lower extremities daily. The daily use of compression stockings is recommended. Avoid prolonged standing and/or dangling of legs. When seated, feet should be elevated whenever possible. Frequent ambulation is encouraged. Follow-up: Return to the wound healing center on an as-needed basis should wounds recur or new wounds develop. Note: [employer] speech recognition pre certification specialist software was used to create portions of this document. Sound-alike and misspelled words, as well as other pre certification specialist errors may be contained in the documentation.
== END 2021-03-04 10:57 | disposition home or self-care (01) ==
LOC: WC 10:00
PROVIDERS: Visit Provider Nurse Practitioner Family
DX: I83.892 Varicose veins of left lower extremity with other complications (principal); L97.922 Non-pressure chronic ulcer of unspecified part of left lower leg with fat layer exposed; I83.018 Varicose veins of right lower extremity with ulcer other part of lower leg; L97.912 Non-pressure chronic ulcer of unspecified part of right lower leg with fat layer exposed; L27.0 Generalized skin eruption due to drugs and medicaments taken internally; R60.0 Localized edema; I87.2 Venous insufficiency (chronic) (peripheral); F17.210 Nicotine dependence, cigarettes, uncomplicated; I10 Essential (primary) hypertension; E78.5 Hyperlipidemia, unspecified; J44.9 Chronic obstructive pulmonary disease, unspecified; L08.9 Local infection of the skin and subcutaneous tissue, unspecified
CPT/HCPCS: 11042; 29580; 29581; 99213; G0463

== ENCOUNTER 2023-07-10 18:13 | Inpatient (IN) | payer BC, SELFPAY ==
[2023-07-10] VITALS (19 sets, daily range): BP systolic 161–201; BP diastolic 98–129; PULSE 26–118; RESP 15–111; TEMP 36–37.1; O2SAT 91–100; BMI 45.1
--- NOTE | 2023-07-10 18:23 | EKG12_ITS ---
Test Reason : SOB Blood Pressure : / mmHG Vent. Rate : 096 BPM Atrial Rate : 288 BPM P-R Int : 000 ms QRS Dur : 070 ms QT Int : 356 ms P-R-T Axes : 257 -18 083 degrees QTc Int : 449 ms Atrial flutter with variable A-V block Anteroseptal infarct (cited on or before 24-MAY-2016) Abnormal ECG Confirmed by JB JETT, ANAM ([id number]), society editor SUMMER ARAGON ([id number]) on 07/11/2023 9:34:57 AM Referred By: UG Confirmed By:ANAM MUHAMMAD MD
--- NOTE | 2023-07-10 18:26 | EDS_ITS ---
HPI History of Present Illness Chief Complaint: Shortness of Breath Detail of Chief Complaint: Shortness of breath after inhalation of gas and paint fumes at work yesterd Informant: patient and family Onset/Context/Timing Onset: Yesterday Context: sudden Timing: Continuous Quality: Positive for Dyspnea on exertion and Wheezing; Negative for Orthopnea or PND Current Severity: Moderate Maximum Severity: Severe Worsened by: Exertion Relieved by: Nothing Associated Symptoms cough and yellow sputum; Negative for rhinorrhea, post nasal drip, ear pain, fever, sore throat, subjective, chills, sweats, clear sputum, white sputum or green sputum Chest Pain: Positive for None Narrative Narrative: Patient is a 57-year-old obese gentleman with history of hypertension, COPD, geovani ateral lymphedema who presents with shortness of breath started yesterday after exposure to fumes. He has a cough. Minimal at best. Occasionally productive of colored sputum. He states this is not abnormal since she still smokes. He denies rhinorrhea, congestion, postnasal drainage sore throat. He denies headache, visual, ocular auditory symptoms. He denies chest pain. He denies history of VTE. He denies pain in his legs or discoloration of his legs. He has swelling which she has had for some time. He denies orthopnea or PND. Patient denies abdominal pain, nausea, vomiting or diarrhea. He denies black or maroon-colored stool. He has no past history of peptic ulcer disease. He denies hematuria. He denies bruising easily. PE Risk Factors: Negative for Cancer, OCP + Smoking + > 35, Prior DVT or PE, Recent immobilization, Recent surgery or Recent travel Prior similar symptoms: Yes (COPD exacerbation) Recent Illness/Hospitalization: No PFSH PFS Medical History Allergic drug rash Bilateral lower extremity edema Dermatitis Hypertension Hypertension Staphylococcal infection of skin Ulcer of left lower extremity with fat layer exposed Ulcer of right lower extremity with fat layer exposed Venous insufficiency of both lower extremities Venous stasis ulcer of left lower leg with edema of left lower leg Venous stasis ulcer with varicose veins of right lower extremity Home Medications NK 07/10/23 [History Last Taken Unknown] Allergy/AdvReac Type Severity Reaction Status Date / Time iodine Allergy Severe Anaphylaxis Verified 07/10/23 18:14 iohexol [From Omnipaque] Allergy Severe Anaphylaxis Verified 07/10/23 18:14 doxycycline Allergy Rash Verified 07/10/23 18:14 Iodinated Contrast Media [CT] Allergy Anaphylaxis Verified 07/10/23 18:14 Family History Mother CAD (coronary artery disease) Surgical History H/O gastric bypass History of ankle surgery History of hernia repair History of partial surgical removal of colon Social History Smoking Status: Current every day smoker tobacco type: cigarettes alcohol intake: current alcohol intake frequency: a few times a month substance use type: does not use what type of physical activity do you participate in: none ROS ROS ED Constitutional Constitutional ED: Denies chills, fever(s), sweats or weight loss Eyes Eyes: Denies blurry vision, change in vision or diplopia ENT ENT ED: Denies ear pain, rhinorrhea or sore throat Cardiovascular Cardiovascular: Denies chest pain, orthopnea, palpitations, paroxysmal nocturnal dyspnea or racing heartbeat Respiratory/Chest Respiratory/Chest: Reports cough, dyspnea, dyspnea on exertion and sputum; Denies orthopnea or paroxysmal nocturnal dyspnea Gastrointestinal Gastrointestinal: Denies abdominal pain, diarrhea, melena, nausea or vomiting Genitourinary Genitourinary ED: Denies dysuria, hematuria or urinary frequency Musculoskeletal Musculoskeletal: Denies arthralgias, back pain, myalgias or neck pain Integumentary Denies abscess, Abrasions or rash Neurologic Neurologic: Denies headache(s), paresthesias or weakness Endocrine Endocrinology: Denies cold intolerance or heat intolerance Hematologic/Lymphatic Hematologic/Lymphatic: Denies easy bleeding or easy bruising EXAM Physical Exam Const Vital Signs: 07/10/23 18:14 07/10/23 18:14 07/10/23 18:15 Temperature 96.8 F L 98.8 F Temperature Source Temporal Oral Pulse Rate 26 L 48 L 100 Respiratory Rate 50 H 26 H 20 H Respiratory Effort Respiratory Depth Respiratory Pattern Blood Pressure 172/121 H 172/121 H 166/111 H Blood Pressure Mean 138 138 129 Pulse Ox 91 91 93 Oxygen Delivery Method Room Air Room Air Room Air 07/10/23 18:40 07/10/23 18:24 07/10/23 18:30 Temperature Temperature Source Pulse Rate 106 H 95 Respiratory Rate 20 H 26 H Respiratory Effort Short of Breath Labored Respiratory Depth Shallow Respiratory Pattern Tachypnea Blood Pressure Blood Pressure Mean Pulse Ox 91 92 Oxygen Delivery Method Room Air 07/10/23 18:38 07/10/23 18:45 07/10/23 18:45 Temperature Temperature Source Pulse Rate 106 H 96 Respiratory Rate 18 18 Respiratory Effort Respiratory Depth Respiratory Pattern Blood Pressure 166/113 H 191/98 H 191/98 H Blood Pressure Mean 130 126 126 Pulse Ox 94 99 Oxygen Delivery Method 07/10/23 19:00 07/10/23 19:11 07/10/23 18:37 Temperature Temperature Source Pulse Rate 92 93 98 Respiratory Rate 15 23 H 20 H Respiratory Effort Respiratory Depth Respiratory Pattern Blood Pressure 184/129 H 185/117 H Blood Pressure Mean 141 137 Pulse Ox 95 95 Oxygen Delivery Method 07/10/23 19:23 07/10/23 19:33 07/10/23 19:44 Temperature 98 F Temperature Source Pulse Rate 107 H 109 H 102 H Respiratory Rate 19 H 20 H 111 H Respiratory Effort Respiratory Depth Respiratory Pattern Blood Pressure 166/104 H Blood Pressure Mean 124 Pulse Ox 93 Oxygen Delivery Method Positive well nourished, well developed and obese Constitutional Narrative: Patient is in respiratory distress with use of accessory muscles and audible wheezing. Vital signs do not make sense we will need to have nurse repeat them. General Appearance ED: well developed; Negative for NAD or pallor Nutritional Appearance: obese HEENT Reports TM's clear and moist mucous membranes HEENT Narrative: Posterior pharynx is normal. atraumatic; Negative for tenderness Tympanic Membrane ED: Yes TM's clear Eyes PERRL and EOMs intact bilaterally General Eye ED: Negative for pale conjunctiva or scleral icterus Neck no lymphadenopathy, supple, no meningeal signs and no JVD Neck Narrative: Trachea is midline. There is no in-store expiratory stridor. Resp No normal respiratory effort and No clear to auscultation bilaterally Resp Narrative: Expiratory phase is increased. Auscultation: wheezes expiratory wheezes and throughout and diminished lung sounds Cardio regular rate and no murmurs Rhythm: abnormal rhythm irregularly irregular GI non-tender, non-distended and no masses Auscultation: normoactive bowel sounds Palpation: soft Back/Spine no CVA tenderness and normal to inspection Extremity Negative for normal to inspection Extremity Narrative: There is evidence of venous stasis dermatitis. There is no asymmetry. General Extremety ED: Yes edema General Extremity: edema Neuro oriented x3, CN's II-XII intact bilaterally and no sensory deficits noted [place] Coma Scale: document GCS findings Spontaneous Obeys Commands Oriented 15 Sensorium / Orientation: alert Skin no wounds and skin turgor normal General Skin Exam: Negative for jaundice or pallor MDM MDM MDM Narrative Medical decision making narrative: Concern patient has exasperate COPD due to exposure. Since he has an irregular heartbeat will obtain EKG determine if this is due to PACs versus VPCs versus other cause i.e. dysrhythmia. Chest x-ray was obtained to assess for pneumonia. EKG because of the abnormal heart tones. Appropriate blood work. He was treated with Solu-Medrol Atrovent and albuterol. He also received Eliquis because his EKG revealed a flutter with variable block. Of note he has no prior history of atrial flutter. He has no contraindication anticoagulation. Lab Data Attestation: I reviewed the patient's lab results. Lab results narrative: White count is remarkable and elevated hemoglobin 17.2 which is new for patient. Glucose is elevated 134 with normal CO2 anion gap. TSH was normal. BNP was normal. Troponin is normal. Labs: Laboratory Results - last 24 hr 07/10/23 18:33 WBC 9.3 RBC 5.33 Hgb 17.2 H Hct 50.2 MCV 94.2 H MCH 32.3 H MCHC 34.3 RDW Std Deviation 42.7 RDW Coeff of Rohit 12.3 Plt Count 193 MPV 8.3 Immature Gran % (Auto) 0.400 Neut % (Auto) 71.9 H Lymph % (Auto) 18.5 L [place] % (Auto) 7.2 Eos % (Auto) 1.5 Baso % (Auto) 0.5 Absolute Neuts (auto) 6.7 Absolute Lymphs (auto) 1.73 Nucleated RBC % 0 Sodium 137 Potassium 4.1 Chloride 101 Carbon Dioxide 29.0 Anion Gap 7 BUN 13 Creatinine 1.04 Est GFR (MDRD) Af Amer 94 Est GFR (MDRD) Non-Af 78 BUN/Creatinine Ratio 12.5 Glucose 134 H Lactic Acid 1.3 Calcium 8.9 Total Bilirubin 0.90 AST 23 ALT 31 Alkaline Phosphatase 95 Troponin I High Sens 20 B-Natriuretic Peptide 32.1 Total Protein 7.5 Albumin 3.7 Globulin 3.8 Albumin/Globulin Ratio 1.0 TSH 1.92 Radiography Chest X-Ray - ED: 2 View and Read by ED Physician (There are no acute findings. There is no infiltrate, effusion or pneumothorax. Cardiac silhouette and size normal. [place] is normal. Osseous trucks unremarkable.) Diagnostic Testing: Clinical Impression(s) from Imaging Studies Chest X-Ray 07/10/23 18:50 IMPRESSION: Normal x-ray examination of the chest. Electronically Signed: Obdulio Banks MD at 19:37 EDT , EKG Initial EKG: Attestation: I personally reviewed and interpreted this EKG as follows: Interpretation: Atrial Flutter (Rate is 96 with a variable block. Decreased anterior force. QRS duration 70 ms. QT duration 3 and 56 ms. 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 PTX, pneumonia Reason(s) pneumonia less likely: Positive for no infiltrate on CXR, no elevation in WBC count, no noted fever and symptoms not consistent with acute infection, aortic dissection Reason(s) Aortic dissection less likely:: Positive for normal vascular exam, normal neurological exam, no significant risk factors for dissection, no widened mediastinum on CXR, pain not sudden onset, no ripping/tearing pain and no pain to back and CHF Reason(s) CHF less likely: Positive for no orthopnea, no evidence of fluid overload on CXR and BtNP not significantly elevated over normal/baseline Management Discussion w/another healthcare provider: Hospitalist (Dr. Davis was paged for admission to PCU) Treatment and Re-Evaluation :: Patient was reassessed at 1932. He is moving more air. He has significant wheezing noted at this time. His expiratory phase is still increased. Monitor reveals atrial fibs/flutter rate of 99. Discharge Plan Dx/Rx/DC Orders Clinical Impression: Acute exacerbation of chronic obstructive pulmonary disease, Benign essential hypertension, Bilateral lower extremity edema, Acute bronchospasm, Atrial fibrillation and flutter Disposition Disposition: Acute Care Hospital [facility]
[2023-07-10] MEDS: MethylPREDNISolone 125 MG/2 ML Vial IV (18:29)
[2023-07-10] MEDS: Ipratropium/Albuterol Sulfate 3 ML AMPUL.NEB INHALATION (18:29)
[2023-07-10] MEDS: APIXABAN 5 MG TABLET PO (18:31)
[2023-07-10 18:41] LABS: Absolute Lymphocyte Count 1.73 X10^3/uL (0.83-4.51); Absolute Neutrophil Count 6.7 X10^3/uL (2.0-7.7); Basophil# 0.05 X10^3/uL; Basophil% 0.5 % (0-1); Eosinophil# 0.14 X10^3/uL; Eosinophils% 1.5 % (0-5); Hematocrit 50.2 % (40-54); Hemoglobin 17.2 g/dL (13.0-16.5); Lymphocyte # 1.73 X10^3/ul (0.83-4.51); Lymphocyte % 18.5 % (19-41); Mean Corp Hgb Conc 34.3 g/dL (32-36); Mean Corpuscular Hgb 32.3 pg (27.0-32.0); Mean Corpuscular Volume 94.2 fL (80-94); Mean Platelet Vol. 8.3 fl (6.2-12.0); Monocyte# 0.67 X10^3/uL; Monocyte% 7.2 % (0-10); NRBC Flagged by Analyzer 0 % (0-5); Neutrophil % 71.9 % (47-70); Platelet Count 193 K/mm3 (150-450); RBC Distribution Width CV 12.3 % (11.6-14.6); RBC Distribution Width SD 42.7 fl (35.1-43.9); Red Blood Count 5.33 M/mm3 (4.6-6.2); White Blood Count 9.3 K/mm3 (4.4-11.0)
--- NOTE | 2023-07-10 18:50 | RAD_ITS ---
STUDY: X-RAY CHEST REASON FOR EXAM: Male, 57 years old. Respiratory distress TECHNIQUE: PA and lateral views of the chest. COMPARISON: None. FINDINGS: The lungs are clear and expanded. There is no demonstrated pleural abnormality. Normal size heart. Normal mediastinum and praveen. Normal visualized pulmonary arteries. Normal visualized aortic arch and descending thoracic aorta. Normal visualized thoracic spine. Normal visualized ribs, clavicles, and shoulders. There is no demonstrated abnormality of the visualized soft tissue structures of the upper abdomen. RAD/Chest PA and Lateral IMPRESSION: Normal x-ray examination of the chest. Electronically Signed: Obdulio Banks MD at 19:37 EDT ,
[2023-07-10 18:58] LABS: BNP,B-Type NATRIURETIC PEPTIDE 32.1 pg/mL (0-100)
[2023-07-10 19:04] LABS: Lactic Acid 1.3 mmol/L (0.4-1.9)
[2023-07-10 19:07] LABS: AST(SGOT) 23 U/L (15-37); Alanine Aminotransfer ALT/SGPT 31 U/L (16-61); Albumin, Serum 3.7 g/dL (3.2-5.0); Alkaline Phosphatase 95 U/L (45-117); Anion Gap 7 (5-15); BUN 13 mg/dL (7-18); BUN/Creat Ratio 12.5 RATIO (10-20); Calcium,Total 8.9 mg/dL (8.5-10.1); Chloride 101 mmol/L (98-107); Creatinine, Serum 1.04 mg/dL (0.70-1.30); EST Glomerular Filtration Rate 78 mL/min (>60); Est Glom Filt Rate - Afr Amer 94 mL/min (>60); Globulin 3.8 g/dL (2.2-4.2); Glucose 134 mg/dL (74-106); Potassium 4.1 mmol/L (3.5-5.1); Protein, Total 7.5 g/dL (6.4-8.2); Sodium Level 137 mmol/L (136-145); Thyroid Stim Hormone (TSH) 1.92 uIU/mL (0.358-3.74); Troponin-I HS 20 pg/mL (3.0-78.0)
[2023-07-10] MEDS: Albuterol 2.5 MG/3 ML VIAL.NEB. INHALATION (19:21)
--- NOTE | 2023-07-10 19:48 | HP.PCM.HOS_ITS ---
[facility] - General General Date of Admission: 07/10/23 Date of Service: 07/10/23 Chief Complaint: SOB, Wheezing and Palpitations. HPI Narrative RODRICK MCKEON, is a 57 M with a past medical history of essential hypertension, morbid obesity; with BMI of 45 this admission, insulin resistance, chronic bilateral lower extremity lymphedema; with chronic venous stasis dermatitis of both lower extremities, history of staphylococcal skin infection with ulceration of the skin both lower extremities, history of partial colectomy, history of incisional hernia repair with mesh ~10 years ago and history of chronic and ongoing tobacco abuse; with subsequent COPD who presents to [facility] ER complaining of SOB, wheezing and palpitations. Mr. Mckeon reports his symptoms began approximately 1 day prior to admission after toxic exposure to paint fumes and gas yesterday at work. He then noticed immediate wheezing with dyspnea on exertion that progressed to shortness of breath at rest. He also admits to a cough occasionally productive of yellowish sputum which he attributes to his continued chronic smoking. He denies associated fever, chills, runny nose, headache, congestion, postnasal drip or sore throat but he does admit to palpitations that are made worse with activity but not fully relieved by rest. He also admits to heavy snoring at night with poor sleep quality and waking up feeling excessively tired for several months but he denies ever having been formally diagnosed with obstructive sleep apnea and he has never underwent a formal sleep study. In the ER he was diagnosed with acute exacerbation of COPD with acute hypoxic respiratory insufficiency complicated by apparently new onset atrial flutter in the setting of ongoing tobacco abuse and suspected underlying obstructive sleep apnea and he was then admitted to the PCU for ongoing care for stay that is expected to be greater than 48 hours. [facility] Medical History Allergic drug rash Bilateral lower extremity edema Dermatitis Hypertension Hypertension Staphylococcal infection of skin Ulcer of left lower extremity with fat layer exposed Ulcer of right lower extremity with fat layer exposed Venous insufficiency of both lower extremities Venous stasis ulcer of left lower leg with edema of left lower leg Venous stasis ulcer with varicose veins of right lower extremity Home Medications NK 07/10/23 [History Last Taken Unknown] Allergy/AdvReac Type Severity Reaction Status Date / Time iodine Allergy Severe Anaphylaxis Verified 07/10/23 18:14 iohexol [From Omnipaque] Allergy Severe Anaphylaxis Verified 07/10/23 18:14 doxycycline Allergy Rash Verified 07/10/23 18:14 Iodinated Contrast Media [CT] Allergy Anaphylaxis Verified 07/10/23 18:14 Family History Mother CAD (coronary artery disease) Surgical History H/O gastric bypass History of ankle surgery History of hernia repair History of partial surgical removal of colon Social History Smoking Status: Current every day smoker tobacco type: cigarettes alcohol intake: current alcohol intake frequency: a few times a month substance use type: does not use what type of physical activity do you participate in: none Vital Signs Vital Signs Vital Signs: 07/10/23 18:14 07/10/23 18:14 07/10/23 18:15 Temperature 96.8 F L 98.8 F Temperature Source Temporal Oral Pulse Rate 26 L 48 L 100 Respiratory Rate 50 H 26 H 20 H Respiratory Effort Respiratory Depth Respiratory Pattern Blood Pressure 172/121 H 172/121 H 166/111 H Blood Pressure Mean 138 138 129 Pulse Ox 91 91 93 Oxygen Delivery Method Room Air Room Air Room Air 07/10/23 18:40 07/10/23 18:24 07/10/23 18:30 Temperature Temperature Source Pulse Rate 106 H 95 Respiratory Rate 20 H 26 H Respiratory Effort Short of Breath Labored Respiratory Depth Shallow Respiratory Pattern Tachypnea Blood Pressure Blood Pressure Mean Pulse Ox 91 92 Oxygen Delivery Method Room Air 07/10/23 18:38 07/10/23 18:45 07/10/23 18:45 Temperature Temperature Source Pulse Rate 106 H 96 Respiratory Rate 18 18 Respiratory Effort Respiratory Depth Respiratory Pattern Blood Pressure 166/113 H 191/98 H 191/98 H Blood Pressure Mean 130 126 126 Pulse Ox 94 99 Oxygen Delivery Method 07/10/23 19:00 07/10/23 19:11 07/10/23 18:37 Temperature Temperature Source Pulse Rate 92 93 98 Respiratory Rate 15 23 H 20 H Respiratory Effort Respiratory Depth Respiratory Pattern Blood Pressure 184/129 H 185/117 H Blood Pressure Mean 141 137 Pulse Ox 95 95 Oxygen Delivery Method 07/10/23 19:23 07/10/23 19:33 07/10/23 19:44 Temperature 98 F Temperature Source Pulse Rate 107 H 109 H 102 H Respiratory Rate 19 H 20 H 111 H Respiratory Effort Respiratory Depth Respiratory Pattern Blood Pressure 166/104 H Blood Pressure Mean 124 Pulse Ox 93 Oxygen Delivery Method Results Lab / Micro Data 07/10/23 18:33 07/10/23 18:33 Labs: Laboratory Results - last 24 hr 07/10/23 18:33: WBC 9.3, RBC 5.33, Hgb 17.2 H, Hct 50.2, MCV 94.2 H, MCH 32.3 H, MCHC 34.3, RDW Std Deviation 42.7, RDW Coeff of Rohit 12.3, Plt Count 193, MPV 8.3, Immature Gran % (Auto) 0.400, Neut % (Auto) 71.9 H, Lymph % (Auto) 18.5 L, [place] % (Auto) 7.2, Eos % (Auto) 1.5, Baso % (Auto) 0.5, Absolute Neuts (auto) 6.7, Absolute Lymphs (auto) 1.73, Nucleated RBC % 0, Sodium 137, Potassium 4.1, Chloride 101, Carbon Dioxide 29.0, Anion Gap 7, BUN 13, Creatinine 1.04, Est GFR (MDRD) Af Amer 94, Est GFR (MDRD) Non-Af 78, BUN/Creatinine Ratio 12.5, Glucose 134 H, Lactic Acid 1.3, Calcium 8.9, Total Bilirubin 0.90, AST 23, ALT 31, Alkaline Phosphatase 95, Troponin I High Sens 20, B-Natriuretic Peptide 32.1, Total Protein 7.5, Albumin 3.7, Globulin 3.8, Albumin/Globulin Ratio 1.0, TSH 1.92 Imaging Radiology Impression Chest X-Ray 07/10/23 18:50 IMPRESSION: Normal x-ray examination of the chest. Electronically Signed: Rodrick Banks MD at 19:37 EDT , Assessment & Plan Assessment/Plan (1) Acute exacerbation of chronic obstructive pulmonary disease: (2) Acute bronchospasm: (3) Atrial fibrillation and flutter: (4) Morbid obesity with BMI of 40.0-44.9, adult: (5) REX (obstructive sleep apnea): PLAN: Plan 1. Acute exacerbation of COPD in the setting of ongoing tobacco abuse - Admit to PCU. Continue IV Solumedrol, nebulizers and start IV Doxycycline. 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 2. Acute hypoxic respiratory insufficiency arising from #1 - Wean supplemental oxygen as tolerated. 3. Apparently new onset atrial fibrillation with palpitations complicating #1 & #2 - Start Cardizem CD and continue Apixaban begun in the ER. Check echocardiogram to evaluate LVEF. Finally, we will consult [place] [facility] track laying supervisor to see this patient on rounds in the a.m. for further recommendations and follow-up care with help appreciated in advance. 4. Morbid obesity; with BMI of 45 this admission and suspected underlying obstructive sleep apnea precipitating #3 - Weight loss will be recommended. Check TSH. Start CPAP now and arrange formal sleep study at time of discharge. Patient was also encouraged to consider bariatric surgery referral. 5. Essential hypertension - Continue home regimen plus give prn IV Hydralazine for systolic blood pressure > 160 mm Hg. 6. Patient denies history of gastric bypass - Noted. 7. Insulin resistance - Check HgbA1c to rule out progression to full diabetes in light of above diagnoses. 8. Chronic bilateral lower extremity lymphedema; with chronic venous stasis dermatitis of both lower extremities - Noted. 9. History of staphylococcal skin infection with ulceration of the skin both lower extremities - Stable with no evidence of recurrence. 10. History of partial colectomy - Noted. 11. History of hernia repair with mesh approximately 10 years ago - Noted. 12. DVT prophylaxis - Patient already started on Apixaban in ER which will be continued. Total time: Approximately 55 minutes. Charges/Coding Visit Charges Inpatient E&M: 56612 Init Hosp L2
--- NOTE | 2023-07-10 20:58 | ECHOCS_ITS ---
Reason For Study: ATRIAL FIBRILLATION Procedure This was a 2D Doppler, Color Flow transthoracic echocardiogram. Contrast injection was performed. The study was technically difficult. Exam performed portable in patient room. Left Ventricle Normal LV size. Mild assymetric septal hypertrophy. Left ventricular systolic function is normal. The estimated ejection fraction is 65 %. Unable to assess diastolic dysfunction due to arrhythmia. No regional wall motion abnormalities noted. Right Ventricle Normal RV size. Normal systolic function. Atria Normal left atrium. Normal right atrium. Mitral Valve The mitral valve is structurally normal. No prolapse or stenosis seen. Trivial mitral valve insufficiency. Tricuspid Valve Normal tricuspid valve. Aortic Valve Trisinus/trileaflet aortic valve. Pulmonic Valve The pulmonic valve is not well visualized. Great Vessels Normal aortic root. Pericardium/Pleural No pericardial effusion. Medication Diluted definity 2ml given slow IV push to enhance endocardial definition. MMode/2D Measurements & Calculations LVIDd: 4.7 cm IVSd: 1.2 cm LVOT diam: 2.1 cm LVIDs: 2.5 cm LVPWd: 1.0 cm RVDd: 3.5 cm FS: 46.1 % LVOT area: 3.6 cm2 Ao root diam: 3.7 cm LAV(MOD-bp): 47.5 ml LVAd ap4: 28.0 cm2 LAV(MOD-bp) Indexed: 18.8 ml/m2 LVLd ap4: 8.0 cm LAV(MOD-sp2): 52.9 ml EDV(MOD-sp4): 80.5 ml LAV(MOD-sp4): 40.6 ml EDV(sp4-el): 83.2 ml LVAs ap4: 17.4 cm2 LVLs ap4: 6.6 cm ESV(MOD-sp4): 36.8 ml ESV(sp4-el): 38.7 ml EF(MOD-sp4): 54.2 % EF(sp4-el): 53.5 % LVAd ap2: 28.8 cm2 SV(MOD-sp4): 43.7 ml SV(MOD-sp2): 47.6 ml LVLd ap2: 8.1 cm EDV(MOD-sp2): 81.5 ml EDV(sp2-el): 86.7 ml LVAs ap2: 17.4 cm2 LVLs ap2: 7.3 cm ESV(MOD-sp2): 33.9 ml ESV(sp2-el): 35.3 ml EF(MOD-sp2): 58.4 % SV(sp4-el): 44.5 ml LA dimension(2D): 4.3 cm LA A4 area: 18.1 cm2 RA A4 area: 16.9 cm2 TAPSE: 1.6 cm Time Measurements MV dec time: 0.16 sec Doppler Measurements & Calculations MV E max hector: 127.2 cm/sec Lat Peak E' Hector: 11.6 cm/sec Med Peak E' Hector: 10.0 cm/sec E/E' lat: 10.9 E/E' med: 12.7 Ao V2 max: 124.1 cm/sec LV V1 max: 108.6 cm/sec SV(LVOT): 69.8 ml Ao max P.2 mmHg LV V1 max P.8 mmHg Ao V2 mean: 85.8 cm/sec LV V1 mean P.6 mmHg Ao mean P.4 mmHg LV V1 mean: 76.0 cm/sec Ao V2 VTI: 22.3 cm LV V1 VTI: 19.4 cm AV (velocity ratio): 0.87 LATOSHA(I,D): 3.1 cm2 LATOSHA(V,D): 3.1 cm2 PA V2 max: 58.7 cm/sec PA max PG (full): -0.83 mmHg ECHO/Echo Complete W/ Contrast Interpretation Summary The estimated ejection fraction is 65 %. Mild assymetric septal hypertrophy. Structually normal valves. The study was technically difficult. Contrast injection was performed. There is no comparison study available. Ordering Physician: Travis Trujillo Referring Physician: Jovana Barajas M.D. Performed By: Naomi Ortiz RDCS
[2023-07-10] MEDS: Ceftriaxone 1 GM/50 ML BAG IV (21:19)
[2023-07-10] MEDS: 0.9% Normal Saline (1000mL) 1,000 ML 70 ML IV (21:19)
[2023-07-10] MEDS: dilTIAZem CD 240 MG Capsule PO (21:31)
[2023-07-10] MEDS: 0.9% Saline Lock 10 ML Syringe IV (21:35)
[2023-07-10] MEDS: Digoxin 250 MCG/ML Ampul IV (21:35)
[2023-07-10] MEDS: Azithromycin 500 MG in Dextrose 5%-Water (250mL Bag) 250 ML 250 MG IV (22:01)
[2023-07-11] VITALS (19 sets, daily range): BP systolic 141–173; BP diastolic 72–116; PULSE 68–91; RESP 15–20; TEMP 36.5–36.8; O2SAT 88–97; BMI 45.0
[2023-07-11] MEDS: MethylPREDNISolone 125 MG/2 ML Vial 60 MG IV ×2 (00:03→11:10)
[2023-07-11 07:36] LABS: Absolute Lymphocyte Count 0.54 X10^3/uL (0.83-4.51); Absolute Neutrophil Count 7.1 X10^3/uL (2.0-7.7); Basophil# 0.01 X10^3/uL; Basophil% 0.1 % (0-1); Hematocrit 50.7 % (40-54); Hemoglobin 17.5 g/dL (13.0-16.5); Lymphocyte # 0.54 X10^3/ul (0.83-4.51); Mean Corp Hgb Conc 34.5 g/dL (32-36); Mean Corpuscular Hgb 32.5 pg (27.0-32.0); Mean Corpuscular Volume 94.1 fL (80-94); Mean Platelet Vol. 8.7 fl (6.2-12.0); Monocyte# 0.04 X10^3/uL; Monocyte% 0.5 % (0-10); NRBC Flagged by Analyzer 0 % (0-5); Neutrophil # 7.11 X10^3/uL (2.7-7.7); Neutrophil % 91.8 % (47-70); POSITIVE DIFFERENTIAL YES; Platelet Count 204 K/mm3 (150-450); RBC Distribution Width SD 41.8 fl (35.1-43.9); Red Blood Count 5.39 M/mm3 (4.6-6.2); White Blood Count 7.8 K/mm3 (4.4-11.0)
[2023-07-11 08:02] LABS: ALB/GLOB Ratio 0.9 RATIO (0.9-2.4); AST(SGOT) 17 U/L (15-37); Alanine Aminotransfer ALT/SGPT 28 U/L (16-61); Albumin, Serum 3.5 g/dL (3.2-5.0); Alkaline Phosphatase 91 U/L (45-117); Anion Gap 6 (5-15); BUN 10 mg/dL (7-18); BUN/Creat Ratio 11.5 RATIO (10-20); Calcium,Total 9.1 mg/dL (8.5-10.1); Chloride 104 mmol/L (98-107); Creatinine, Serum 0.87 mg/dL (0.70-1.30); EST Glomerular Filtration Rate 96 mL/min (>60); Est Glom Filt Rate - Afr Amer 116 mL/min (>60); Estimated Creatinine Clearance 132.01 ml/min; Globulin 3.9 g/dL (2.2-4.2); Glucose 182 mg/dL (74-106); Magnesium 2.3 mg/dL (1.6-2.6); Potassium 4.3 mmol/L (3.5-5.1); Protein, Total 7.4 g/dL (6.4-8.2); Sodium Level 134 mmol/L (136-145)
--- NOTE | 2023-07-11 10:55 | CASEMGMT ---
RN CM Face to Face with patient for initial transition planning/care coordination assessment. RN CM introduced self and role at [facility]. Patient lying in bed, alert and oriented. Patient willing to participate in assessment and is able to answer all questions appropriately. Care providers, pharmacy, and demographics verified. PCP: Jenn Specialists: none Preferred Pharmacy: [facility] Insurance: [place] Prescription Benefit: yes Living Will/HPOA: none LNOK: , daughter Living Arrangements: Patient lives alone in a mobile home with 3 steps and railing to enter. Patient is independent at home. Transportation: self, daughter DME/HHC: Patient has grab bars at home. Will monitor for nebulizer and home oxygen at discharge. No previous HHC or SNF. Patient wishes to discharge home, denies need for home health at this time. Patient states he has no further needs or concerns at this time. CM to follow for discharge planning needs that may arise. Disposition Plan: Patient to discharge home with family support and follow-up plans in place. Will monitor for nebulizer and home oxygen. Salena BALDERRAMA, RN, CM
[2023-07-11] MEDS: APIXABAN 5 MG TABLET PO ×2 (11:11→22:47)
[2023-07-11] MEDS: Pantoprazole Sodium 40 MG Tablet PO (11:12)
[2023-07-11] MEDS: dilTIAZem CD 240 MG Capsule PO (11:12)
[2023-07-11] MEDS: Acetaminophen 325 MG Tablet 650 MG PO ×2 (12:21→22:51)
--- NOTE | 2023-07-11 12:21 | CON.PCM.CA_ITS ---
<Statement entered by Devin Greene MD - 07/11/23 15:43> Pt seen & evaluated w/CHRISTOFER. I personally interviewed & exam the pt. I was involved in all aspects of pt's orders, interpretation of results & treatment Assessment & Plan Assessment/Plan (1) Atrial fibrillation and flutter: (2) Benign essential hypertension: PLAN: Plan * Patient remains in atrial flutter. His heart rate is controlled on his current dose of Cardizem. He is also anticoagulated with factor Xa inhibitor. He does have an echocardiogram pending. Feel that we could proceed with a stress test on an outpatient basis. After patient has been anticoagulated for 30 days would plan on a cardioversion on an outpatient basis. Patient does have a [id number] of at least 2 with elevated blood sugars and hypertension. * Blood pressure is elevated. Would like to add lisinopril. Will continue to monitor. HPI Consult Data Date of Consult: 07/11/23 HPI Narrative HPI Narrative: RODRICK MCKEON, is a 57 M who presented to [facility] ER on 07/10/23 with complaints of shortness of breath. 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 EKG demonstrated atrial flutter with variable block. As this was a new finding for patient he was admitted to PCU. He also has a history of hypertension, COPD, chronic bilateral lymphedema. Patient was started on Cardizem and apixaban. Ec hocardiogram was ordered for the morning. Patient notes that he has been short of breath over the last few days. He does have issues with wheezing. He states that this got significantly worse at work where after he had inhaled some smoke. He has not had any cardiac problems that he is aware of. He is not aware of his irregular rhythm. He does not have any chest pain. He does have chronic swelling. He does not have any lightheadedness or dizziness. [facility] Medical History (Updated 07/11/23 @ 14:22 by Isa RYAN, PA) Allergic drug rash Atrial fibrillation and flutter Bilateral lower extremity edema Dermatitis Hypertension Hypertension Staphylococcal infection of skin Ulcer of left lower extremity with fat layer exposed Ulcer of right lower extremity with fat layer exposed Venous insufficiency of both lower extremities Venous stasis ulcer of left lower leg with edema of left lower leg Venous stasis ulcer with varicose veins of right lower extremity Home Medications NK 07/10/23 [History Last Taken Unknown] Allergy/AdvReac Type Severity Reaction Status Date / Time iodine Allergy Severe Anaphylaxis Verified 07/10/23 18:14 iohexol [From Omnipaque] Allergy Severe Anaphylaxis Verified 07/10/23 18:14 doxycycline Allergy Rash Verified 07/10/23 18:14 Iodinated Contrast Media [CT] Allergy Anaphylaxis Verified 07/10/23 18:14 Family History Mother CAD (coronary artery disease) Surgical History H/O gastric bypass History of ankle surgery History of hernia repair History of partial surgical removal of colon Social History Smoking Status: Current every day smoker tobacco type: cigarettes alcohol intake: current alcohol intake frequency: a few times a month substance use type: does not use what type of physical activity do you participate in: none ROS Constitutional Constitutional: Reports change in weight; Denies chills, fatigue, frequent falls, headache(s) or lethargy Eyes Eyes: Denies acute decrease in peripheral vision, blurry vision or change in vision ENT HEENT: Denies dizziness, dry mouth, epistaxis, headache(s), tinnitus or vertigo Cardiovascular Cardiovascular: Reports edema; Denies chest pain with activity, claudication, dyspnea at rest, dyspnea on exertion, irregular heart rhythm, lightheadedness, orthopnea or orthostatic symptoms Respiratory/Chest Respiratory/Chest: Reports cough, dyspnea, dyspnea on exertion and wheezing; Denies tachypnea Gastrointestinal Gastrointestinal: Denies coffee ground emesis, diarrhea, heartburn, melena or nausea Genitourinary Genitourinary: Denies hematuria Musculoskeletal Musculoskeletal: Reports myalgias; Denies numbness or tingling Neurologic Neurologic: Denies abnormal gait, abnormal speech, memory loss, paresthesias or weakness Physical Exam Const alert, oriented x3 and no apparent distress Nutritional Appearance: morbidly obese HEENT normocephalic, head/scalp atraumatic, hearing grossly normal bilaterally, external ears normal, external nose normal and moist oral mucous membranes Eyes PERRL, EOMs intact bilaterally, conjunctivae normal and no scleral icterus Neck no lymphadenopathy, supple and no JVD Resp Auscultation: wheezes expiratory wheezes and inspiratory wheezes Cardio regular rate, regular rhythm, S1 normal heart sound, S2 normal heart sound, no murmurs, no rub, no gallops, no clicks, no JVD and peripheral pulses 2+ throughout GI normal to inspection, nondistended, normoactive bowel sounds, soft to palpation, non-tender and non-distended Extremity normal to inspection, normal capillary refill, no clubbing, cyanosis or edema and no pedal edema Neuro oriented x3, CN's II-XII intact bilaterally, moves all extremities and no focal motor deficits Psych cooperative and affect normal Risk Stratification Risk Stratification Applicable: No Charges/Coding Visit Charges Office Visits / Consults: 78581 IP Consult L3 Objective Data Vital Signs: Vital Signs Temp Pulse Resp BP Pulse Ox O2 Del Method FiO2 97.9 F 74 18 173/103 H 95 Room Air 40 07/11/23 12:13 07/11/23 12:13 07/11/23 12:13 07/11/23 12:13 07/11/23 12:13 07/11/23 12:13 07/11/23 05:30 Oxygen Delivery Method Room Air Weight: 314 lb 6.067 oz Body Mass Index (BMI) 45.0 Intake & Output: Intake and Output for Last 24 Hours 07/09/23 07/10/23 07/11/23 23:59 23:59 23:59 Intake Total 307.33 / 787.33 1050 / 1050 Output Total 2075 / 2075 Balance 307.33 / 37.33 -1025 / -1025 Lab / Micro Data 07/11/23 06:55 07/11/23 06:55 Labs: Laboratory Results - last 24 hr 07/10/23 18:33: WBC 9.3, RBC 5.33, Hgb 17.2 H, Hct 50.2, MCV 94.2 H, MCH 32.3 H, MCHC 34.3, RDW Std Deviation 42.7, RDW Coeff of Rohit 12.3, Plt Count 193, MPV 8.3, Immature Gran % (Auto) 0.400, Neut % (Auto) 71.9 H, Lymph % (Auto) 18.5 L, [place] % (Auto) 7.2, Eos % (Auto) 1.5, Baso % (Auto) 0.5, Absolute Neuts (auto) 6.7, Absolute Lymphs (auto) 1.73, Nucleated RBC % 0, Sodium 137, Potassium 4.1, Chloride 101, Carbon Dioxide 29.0, Anion Gap 7, BUN 13, Creatinine 1.04, Est GFR (MDRD) Af Amer 94, Est GFR (MDRD) Non-Af 78, BUN/Creatinine Ratio 12.5, Glucose 134 H, Lactic Acid 1.3, Calcium 8.9, Total Bilirubin 0.90, AST 23, ALT 31, Alkaline Phosphatase 95, Troponin I High Sens 20, B-Natriuretic Peptide 32.1, Total Protein 7.5, Albumin 3.7, Globulin 3.8, Albumin/Globulin Ratio 1.0, TSH 1.92 07/11/23 06:55: WBC 7.8, RBC 5.39, Hgb 17.5 H, Hct 50.7, MCV 94.1 H, MCH 32.5 H, MCHC 34.5, RDW Std Deviation 41.8, RDW Coeff of Rohit 12.0, Plt Count 204, MPV 8.7, Immature Gran % (Auto) 0.600, Neut % (Auto) 91.8 H, Lymph % (Auto) 7.0 L, [place] % (Auto) 0.5, Eos % (Auto) 0.0, Baso % (Auto) 0.1, Absolute Neuts (auto) 7.1, Absolute Lymphs (auto) 0.54 L, Nucleated RBC % 0, Sodium 134 L, Potassium 4.3, Chloride 104, Carbon Dioxide 24.0, Anion Gap 6, BUN 10, Creatinine 0.87, Estim Creat Clear Calc 132.01, Est GFR (MDRD) Af Amer 116, Est GFR (MDRD) Non-Af 96, BUN/Creatinine Ratio 11.5, Glucose 182 H, Calcium 9.1, Phosphorus 2.0 L, Magnesium 2.3, Total Bilirubin 1.10 H, AST 17, ALT 28, Alkaline Phosphatase 91, Total Protein 7.4, Albumin 3.5, Globulin 3.9, Albumin/Globulin Ratio 0.9 Cardiology Labs/Tests 07/10/23 18:33: WBC 9.3, RBC 5.33, Hgb 17.2 H, Hct 50.2, MCV 94.2 H, MCH 32.3 H, MCHC 34.3, Plt Count 193, MPV 8.3, Immature Gran % (Auto) 0.400, Neut % (Auto) 71.9 H, Lymph % (Auto) 18.5 L, [place] % (Auto) 7.2, Eos % (Auto) 1.5, Baso % (Auto) 0.5, Absolute Neuts (auto) 6.7, Nucleated RBC % 0, Sodium 137, Potassium 4.1, Chloride 101, Carbon Dioxide 29.0, Anion Gap 7, BUN 13, Creatinine 1.04, Est GFR (MDRD) Af Amer 94, Est GFR (MDRD) Non-Af 78, BUN/Creatinine Ratio 12.5, Glucose 134 H, Lactic Acid 1.3, Calcium 8.9, Total Bilirubin 0.90, B-Natriuretic Peptide 32.1 07/11/23 06:55: WBC 7.8, RBC 5.39, Hgb 17.5 H, Hct 50.7, MCV 94.1 H, MCH 32.5 H, MCHC 34.5, Plt Count 204, MPV 8.7, Immature Gran % (Auto) 0.600, Neut % (Auto) 91.8 H, Lymph % (Auto) 7.0 L, [place] % (Auto) 0.5, Eos % (Auto) 0.0, Baso % (Auto) 0.1, Absolute Neuts (auto) 7.1, Nucleated RBC % 0, Sodium 134 L, Potassium 4.3, Chloride 104, Carbon Dioxide 24.0, Anion Gap 6, BUN 10, Creatinine 0.87, Est GFR (MDRD) Af Amer 116, Est GFR (MDRD) Non-Af 96, BUN/Creatinine Ratio 11.5, Glucose 182 H, Calcium 9.1, Phosphorus 2.0 L, Magnesium 2.3, Total Bilirubin 1.10 H Rhythm: EKG: Radiography Diagnostic Testing: Radiology Impression Chest X-Ray 07/10/23 18:50 IMPRESSION: Normal x-ray examination of the chest. Electronically Signed: Rodrick Banks MD at 19:37 EDT ,
[2023-07-11] MEDS: hydrALAZINE 20 MG/ML Vial 10 MG IV (12:40)
[2023-07-11] MEDS: 0.9% Normal Saline (1000mL) 1,000 ML 70 ML IV (13:28)
[2023-07-11] MEDS: Albuterol 2.5 MG/3 ML VIAL.NEB. INHALATION ×2 (13:50→23:36)
--- NOTE | 2023-07-11 15:03 | PCM.PN.HOSP ---
Reason for Visit Reason for Visit: Shortness of breath/wheezing/palpitations Subjective Subjective Mr. Henry is a 57-year-old white male with a history of morbid obesity and ongoing tobacco abuse/COPD who presented to the emergency department at [facility] on 07/10/2023 complaining of shortness of breath. He reported his symptoms began approximately 1 day prior to admission after he had some toxic exposure to paint fumes and gas while he was at work. He then noticed immediate wheezing and shortness of breath with exertion that progressed to shortness of breath at rest. He also admitted to an intermittent cough that is occasionally productive of yellow sputum which is chronic. He denied any fever or chills, rhinorrhea, headache, congestion or postnasal drip. He also complained of some palpitations that were worse with activities but not fully relieved with rest. Vital signs on presentation showed a temperature of 96.8, heart rate was 100, respiratory rate was 26, blood pressure was 172/21 with a pulse ox of 91% on room air. His breathing was labored and shallow with tachypnea. He was felt to likely have an acute exacerbation of COPD. His CBC was unremarkable other than erythrocytosis which is likely related to his chronic tobacco use. His chemistry panel was unremarkable. Liver functions were normal. Lactic acid was 1.3. BNP was 32 and his troponin was 20. TSH was obtained and found to be 1.92. EKG showed atrial flutter with variable AV block. Since he had new onset atrial flutter he was admitted to the PCU. He was started on Solu-Medrol, nebulizers, and IV doxycycline as well as supplemental oxygen. With regards to his new onset A-fib he was started on Cardizem oral CD and apixaban. Echocardiogram was ordered and cardiology was consulted. Patient states overall he is improved. He is feels that he is probably 50% better since arrival. He still complains that he is quite winded with exertion and conversation. Objective Data Objective Data Vital Signs: Vital Signs Temp Pulse Resp BP Pulse Ox O2 Del Method FiO2 97.9 F 89 20 H 157/102 H 95 Room Air 40 07/11/23 13:31 07/11/23 13:50 07/11/23 13:50 07/11/23 13:31 07/11/23 13:31 07/11/23 13:31 07/11/23 05:30 Oxygen Delivery Method Room Air Weight: 142.6 kg Body Mass Index (BMI) 45.0 Intake & Output: Intake and Output for Last 24 Hours 07/09/23 07/10/23 07/11/23 23:59 23:59 23:59 Intake Total 307.33 / 787.33 / Output Total 2074 / 2074 Balance 307.33 / 37.33 -57.58 / -57.58 Lab / Micro Data 07/11/23 06:55 07/11/23 06:55 Labs: Laboratory Results - last 24 hr 07/10/23 18:33: WBC 9.3, RBC 5.33, Hgb 17.2 H, Hct 50.2, MCV 94.2 H, MCH 32.3 H, MCHC 34.3, RDW Std Deviation 42.7, RDW Coeff of Rohit 12.3, Plt Count 193, MPV 8.3, Immature Gran % (Auto) 0.400, Neut % (Auto) 71.9 H, Lymph % (Auto) 18.5 L, Kenton % (Auto) 7.2, Eos % (Auto) 1.5, Baso % (Auto) 0.5, Absolute Neuts (auto) 6.7, Absolute Lymphs (auto) 1.73, Nucleated RBC % 0, Sodium 137, Potassium 4.1, Chloride 101, Carbon Dioxide 29.0, Anion Gap 7, BUN 13, Creatinine 1.04, Est GFR (MDRD) Af Amer 94, Est GFR (MDRD) Non-Af 78, BUN/Creatinine Ratio 12.5, Glucose 134 H, Lactic Acid 1.3, Calcium 8.9, Total Bilirubin 0.90, AST 23, ALT 31, Alkaline Phosphatase 95, Troponin I High Sens 20, B-Natriuretic Peptide 32.1, Total Protein 7.5, Albumin 3.7, Globulin 3.8, Albumin/Globulin Ratio 1.0, TSH 1.92 07/11/23 06:55: WBC 7.8, RBC 5.39, Hgb 17.5 H, Hct 50.7, MCV 94.1 H, MCH 32.5 H, MCHC 34.5, RDW Std Deviation 41.8, RDW Coeff of Rohit 12.0, Plt Count 204, MPV 8.7, Immature Gran % (Auto) 0.600, Neut % (Auto) 91.8 H, Lymph % (Auto) 7.0 L, Kenton % (Auto) 0.5, Eos % (Auto) 0.0, Baso % (Auto) 0.1, Absolute Neuts (auto) 7.1, Absolute Lymphs (auto) 0.54 L, Nucleated RBC % 0, Sodium 134 L, Potassium 4.3, Chloride 104, Carbon Dioxide 24.0, Anion Gap 6, BUN 10, Creatinine 0.87, Estim Creat Clear Calc 132.01, Est GFR (MDRD) Af Amer 116, Est GFR (MDRD) Non-Af 96, BUN/Creatinine Ratio 11.5, Glucose 182 H, Calcium 9.1, Phosphorus 2.0 L, Magnesium 2.3, Total Bilirubin 1.10 H, AST 17, ALT 28, Alkaline Phosphatase 91, Total Protein 7.4, Albumin 3.5, Globulin 3.9, Albumin/Globulin Ratio 0.9 Radiography Diagnostic Testing: Radiology Impression Chest X-Ray 07/10/23 18:50 IMPRESSION: Normal x-ray examination of the chest. Electronically Signed: Obdulio Banks MD at 19:37 EDT , Echocardiogram 07/10/23 20:58 Interpretation Summary The estimated ejection fraction is 65 %. Mild assymetric septal hypertrophy. Structually normal valves. The study was technically difficult. Contrast injection was performed. There is no comparison study available. Ordering Physician: Travis Trujillo Referring Physician: Jovana Barajas M.D. Performed By: Naomi Ortiz RDCS Physical Exam Const alert, oriented x3, no apparent distress and well nourished; Negative for average body habitus or healthy appearing Constitutional Narrative: Morbidly obese, white male, middle-aged, sitting up in bed watching television, family at bedside, patient appears comfortable but is somewhat conversationally dyspneic HEENT head/scalp atraumatic and moist oral mucous membranes HEENT Narrative: Dentition is poor, Mallampati is 3, no thrush Head and Scalp: normocephalic Resp normal respiratory effort, no retractions, no use of accessory muscles and No clear to auscultation bilaterally Resp Narrative: Conversational dyspnea but no dyspnea at rest, diffuse end expiratory wheezing Auscultation: wheezes; Negative for crackles or rhonchi Cardio regular rate, S1 normal heart sound, S2 normal heart sound, no murmurs, no rub, no gallops and no clicks; Negative for regular rhythm Cardio Narrative: Rhythm is irregularly irregular with controlled rate GI normal to inspection, nondistended, normoactive bowel sounds, soft to palpation and non-tender GI Narrative: Large protuberant abdomen Extremity Extremity Narrative: Mild left lower extremity swelling from previous traumatic injury, no right lower extremity edema noted, no cyanosis, mild clubbing in the hands Neuro oriented x3, moves all extremities and no focal motor deficits Speech: speech normal Psych affect normal Psych Narrative: Eye contact is good and patient interacts appropriately Assessment & Plan Assessment/Plan (1) Atrial fibrillation and flutter: (2) Acute exacerbation of chronic obstructive pulmonary disease: (3) Hypoxia: (4) Erythrocytosis: (5) Hyperglycemia: PLAN: Plan Hypoxia and shortness of breath secondary to acute exacerbation of COPD -Chest x-ray unremarkable for any acute findings -Will check respiratory viral panel as well as COVID/flu/RSV -Discontinue antibiotics with a normal white count no fever or chills and acute onset -Continue steroids but transition to 40 every 8--> will discharge with taper -Add Mucinex 1200 mg p.o. twice daily -Add DuoNebs -Continue as needed albuterol -Continue incentive spirometer -Add Acapella -Discontinue IV fluids -Will give Lasix IV push x 1 due to him being on IV fluids earlier today -Would recommend outpatient pulmonary medicine follow-up at discharge A flutter with variable AV block -Continue Eliquis -Continue diltiazem 240 mg daily--> heart rate is controlled with this -TSH within normal limits -Echocardiogram shows EF of 65% with mild asymmetric septal hypertrophy and strictly normal valves/pulmonary pressures are not reported -Plan is for outpatient follow-up with cardiology after discharge -[id number] score is at least 2 -Cardiology following Hypertension -Continue Cardizem -Lisinopril added by cardiology Hyperglycemia -Likely steroid-induced at this point -Check hemoglobin A1c Erythrocytosis -Like related to his ongoing tobacco abuse and suspected untreated REX -Recommend outpatient follow-up with pulmonary medicine Chronic bilateral lower extremity lymphedema -No acute changes -Patient has had previous staphylococcal skin infection with ulceration due to his chronic lymphedema but currently appears stable History of partial colectomy -No current issues History of hernia repair with mesh -Done approximately 10 years ago -No acute issues Morbid obesity -BMI is 45 -Recommend weight loss -Complicates treatment, prognosis, outcomes -Highly suspect sleep apnea and will need a pulmonary medicine follow-up after discharge to be considered for treatment -Patient was educated on the complications related to untreated obstructive sleep apnea DVT prophylaxis -Continue apixaban CODE STATUS Full code Charges/Coding Visit Charges Inpatient E&M: 24146 Subs Hosp L2
--- NOTE | 2023-07-11 15:54 | EKG12_ITS ---
Test Reason : Blood Pressure : / mmHG Vent. Rate : 071 BPM Atrial Rate : 284 BPM P-R Int : 000 ms QRS Dur : 064 ms QT Int : 364 ms P-R-T Axes : 107 -06 091 degrees QTc Int : 395 ms Atrial flutter with 4:1 A-V conduction Anteroseptal infarct (cited on or before 24-MAY-2016) ST & T wave abnormality, consider lateral ischemia Abnormal ECG When compared with ECG of 10-JUL-2023 18:20, QT has shortened Confirmed by JB JETT, ANAM ([id number]), newspaper copy editor SUMMER ARAGON ([id number]) on 07/12/2023 8:54:32 AM Referred By: ANTIONE Confirmed By:ANAM MUHAMMAD MD
[2023-07-11] MEDS: Lisinopril 10 MG Tablet PO (16:24)
[2023-07-11 17:01] LABS: Hemoglobin A1c 5.5 % (3.8-5.6)
[2023-07-11] MEDS: Furosemide 40 MG/4 ML Vial IV (17:52)
[2023-07-11] MEDS: Ipratropium/Albuterol Sulfate 3 ML AMPUL.NEB INHALATION (19:42)
[2023-07-11] MEDS: guaiFENesin 1,200 MG Tablet 1200 MG PO (22:47)
[2023-07-11] MEDS: 0.9% Saline Lock 10 ML Syringe IV (22:47)
[2023-07-12 03:15] VITALS: BMI 45.3
[2023-07-12 04:23] VITALS: BP 142/96; PULSE 69; RESP 16; TEMP 36.5; O2SAT 96
[2023-07-12] MEDS: 0.9% Saline Lock 10 ML Syringe IV ×2 (05:28→14:01)
[2023-07-12 06:58] VITALS: PULSE 78; RESP 20; O2SAT 93
[2023-07-12] MEDS: Ipratropium/Albuterol Sulfate 3 ML AMPUL.NEB INHALATION ×2 (06:58→13:02)
[2023-07-12 07:57] LABS: Anion Gap 7 (5-15); BUN 19 mg/dL (7-18); BUN/Creat Ratio 19.2 RATIO (10-20); Calcium,Total 9.5 mg/dL (8.5-10.1); Chloride 102 mmol/L (98-107); Creatinine, Serum 0.99 mg/dL (0.70-1.30); EST Glomerular Filtration Rate 82 mL/min (>60); Est Glom Filt Rate - Afr Amer 100 mL/min (>60); Estimated Creatinine Clearance 116.42 ml/min; Glucose 172 mg/dL (74-106); Magnesium 2.6 mg/dL (1.6-2.6); Phosphorus 3.6 mg/dL (2.5-4.9); Potassium 4.1 mmol/L (3.5-5.1); Sodium Level 133 mmol/L (136-145)
--- NOTE | 2023-07-12 09:05 | PN.CARD_ITS ---
Subjective Subjective Patient seen and examined today. Patient is still short of breath and does have audible wheezing however he does feel better than yesterday. He does not have any chest pain. Objective Data Vital Signs: Vital Signs Temp Pulse Resp BP Pulse Ox O2 Del Method O2 Flow Rate 97.7 F L 78 20 H 142/96 H 93 Room Air 2 07/12/23 04:23 07/12/23 06:58 07/12/23 06:58 07/12/23 04:23 07/12/23 06:58 07/12/23 06:58 07/11/23 14:45 FiO2 40 07/12/23 04:23 Oxygen Flow Rate (L/min) 2 Oxygen Delivery Method Room Air Weight: 316 lb 5.813 oz Body Mass Index (BMI) 45.3 Intake & Output: Intake and Output for Last 24 Hours 07/10/23 07/11/23 07/12/23 23:59 23:59 23:59 Intake Total 307.33 / 787.33 2700.42 / 2700.42 Output Total 2425 / 2425 Balance 307.33 / 37.33 275.42 / 275.42 Lab / Micro Data 07/11/23 06:55 07/12/23 06:42 Labs: Laboratory Results - last 24 hr 07/11/23 06:55: Hemoglobin A1c 5.5 07/12/23 06:42: Sodium 133 L, Potassium 4.1, Chloride 102, Carbon Dioxide 24.0, Anion Gap 7, BUN 19 H, Creatinine 0.99, Estim Creat Clear Calc 116.42, Est GFR (MDRD) Af Amer 100, Est GFR (MDRD) Non-Af 82, BUN/Creatinine Ratio 19.2, Glucose 172 H, Calcium 9.5, Phosphorus 3.6, Magnesium 2.6 Micro: Microbiology 07/11/23 16:15 Mucosa - Nose Coronavirus COVID-19 PCR - Final 07/11/23 16:15 Mucosa - Nose Respiratory Panel (PCR) - Final Rhinovirus Cardiology Labs/Tests 07/11/23 06:55: Hemoglobin A1c 5.5 07/12/23 06:42: Sodium 133 L, Potassium 4.1, Chloride 102, Carbon Dioxide 24.0, Anion Gap 7, BUN 19 H, Creatinine 0.99, Est GFR (MDRD) Af Amer 100, Est GFR (MDRD) Non-Af 82, BUN/Creatinine Ratio 19.2, Glucose 172 H, Calcium 9.5, Phosphorus 3.6, Magnesium 2.6 Rhythm: Atrial flutter Radiography Diagnostic Testing: Radiology Impression Echocardiogram 07/10/23 20:58 Interpretation Summary The estimated ejection fraction is 65 %. Mild assymetric septal hypertrophy. Structually normal valves. The study was technically difficult. Contrast injection was performed. There is no comparison study available. Ordering Physician: Travis Trujillo Referring Physician: Jovana Barajas M.D. Performed By: Naomi Ortiz RDCS Physical Exam Const alert, oriented x3 and no apparent distress Nutritional Appearance: morbidly obese HEENT normocephalic, head/scalp atraumatic, hearing grossly normal bilaterally, external ears normal, external nose normal and moist oral mucous membranes Eyes PERRL, EOMs intact bilaterally, conjunctivae normal and no scleral icterus Neck no lymphadenopathy, supple and no JVD Resp Auscultation: wheezes expiratory wheezes and inspiratory wheezes Cardio regular rate, S1 normal heart sound, S2 normal heart sound, no murmurs, no rub, no gallops, no clicks, no JVD and peripheral pulses 2+ throughout Rhythm: abnormal rhythm irregularly irregular GI normal to inspection, nondistended, normoactive bowel sounds, soft to palpation, non-tender and non-distended Extremity normal to inspection, normal capillary refill, no clubbing, cyanosis or edema and no pedal edema Neuro oriented x3, CN's II-XII intact bilaterally, moves all extremities and no focal motor deficits Psych cooperative and affect normal Assessment & Plan Assessment/Plan (1) Atrial fibrillation and flutter: (2) Benign essential hypertension: PLAN: Plan * Patient remains in atrial flutter. His heart rate is controlled on his current dose of Cardizem. He is also anticoagulated with factor Xa inhibitor. Echocardiogram demonstrated normal ejection fraction. Feel that we could proceed with a stress test on an outpatient basis. After patient has been anticoagulated for 30 days would plan on a cardioversion on an outpatient basis. Patient does have a [id number] of at least 2 with elevated blood sugars and hypertension. * Blood pressure is elevated. Recommend continued monitoring and adjusting medications. Will follow-up with patient on an outpatient basis. At this time will sign off. If any additional input is needed please contact us. Charges/Coding Visit Charges Inpatient E&M: 52041 Subs Hosp L2
[2023-07-12 09:13] VITALS: BP 140/85; PULSE 71; RESP 18; TEMP 36.4; O2SAT 96
[2023-07-12] MEDS: Lisinopril 10 MG Tablet PO (09:17)
[2023-07-12] MEDS: dilTIAZem CD 240 MG Capsule PO (09:17)
[2023-07-12] MEDS: guaiFENesin 1,200 MG Tablet 1200 MG PO (09:18)
[2023-07-12] MEDS: Pantoprazole Sodium 40 MG Tablet PO (09:18)
[2023-07-12] MEDS: APIXABAN 5 MG TABLET PO (09:18)
[2023-07-12 11:08] VITALS: O2SAT 90; O2SAT 93
--- NOTE | 2023-07-12 12:03 | CASEMGMT ---
Per physician patient has problems with transportation. SW provided patient with transportation resources. Livia Butler [employer]
[2023-07-12 13:02] VITALS: PULSE 79; RESP 20
--- NOTE | 2023-07-12 13:14 | DS.PCM_ITS ---
Providers Date of Admission: 07/10/23 Date of Discharge: 07/12/23 Primary Care Physician: Dr. Jovana Barajas MD Consultations 07/10/23 20:58 Consult: Cardiology Routine Consulting Provider: Devin Greene Reason for Consult: new onset atrial fibrillation with RVR EMERGENT Consult: No MD Notified: Yes Date Notified: 07/11/23 Time Notified: 07:43 Method of Notification: Verbal Reason For Visit: ACUTE EXACERBATION OF COPD & NEW ONSET ATRIAL Diagnosis Discharge Diagnosis (1) Atrial fibrillation and flutter: Status: Acute Code(s): I48.91 - Unspecified atrial fibrillation; I48.92 - Unspecified atrial flutter (2) Benign essential hypertension: Status: Chronic Code(s): I10 - Essential (primary) hypertension Plan Patient will need outpatient PFTs and a 6-minute walk test after he is stable with regards to his rhinovirus infection Medications at Discharge Home Medications albuterol sulfate 90 mcg/actuation aerosol inhaler 1 inh inhalation Q6H PRN shortness of breath or wheezing #8.5 grams 07/12/23 apixaban 5 mg tablet (Eliquis) 5 mg PO BID #60 tabs 07/12/23 diltiazem HCl 240 mg capsule,extended release 24 hr 240 mg PO DAILY #30 caps 07/12/23 guaifenesin 1,200 mg tablet, extended release 12 hr (Mucus Relief ER) 1,200 mg PO BID #0 tabs 07/12/23 lisinopril 10 mg tablet 10 mg PO DAILY #30 tabs 07/12/23 prednisone 10 mg tablet 10 mg PO DAILY #30 tabs 07/12/23 Hospital Course Operations None Procedures 2-D Echocardiogram, EKG and - (Chest x-ray) Summary of Care Provided Minutes Spent on Discharge: 37 Hospital Course: Mr. Henry is a 57-year-old white male with a history of morbid obesity and ongoing tobacco abuse/COPD who presented to the emergency department at [facility] on 07/10/2023 complaining of shortness of breath. He reported his symptoms began approximately 1 day prior to admission after he had some toxic exposure to paint fumes and gas while he was at work. He then noticed immediate wheezing and shortness of breath with exertion that progressed to shortness of breath at rest. He also admitted to an intermittent cough that is occasionally productive of yellow sputum which is chronic. He denied any fever or chills, rhinorrhea, headache, congestion or postnasal drip. He also complained of some palpitations that were worse with activities but not fully relieved with rest. Vital signs on presentation showed a temperature of 96.8, heart rate was 100, respiratory rate was 26, blood pressure was 172/21 with a pulse ox of 91% on room air. His breathing was labored and shallow with ta chypnea. He was felt to likely have an acute exacerbation of COPD. His CBC was unremarkable other than erythrocytosis which is likely related to his chronic tobacco use. His chemistry panel was unremarkable. Liver functions were normal. Lactic acid was 1.3. BNP was 32 and his troponin was 20. TSH was obtained and found to be 1.92. EKG showed atrial flutter with variable AV block. Since he had new onset atrial flutter he was admitted to the PCU. He was started on Solu-Medrol, nebulizers, and IV doxycycline as well as supplemental oxygen. With regards to his new onset A-fib he was started on Cardizem oral CD and apixaban. He appeared to get good heart rate control with the addition of Cardizem. Echocardiogram was performed and demonstrated an EF of 65% with mild asymmetric septal hypertrophy, structurally normal valves and pulmonary pressures were not reported. Cardiology was consulted and he remained in a flutter throughout his hospital course and at the time of discharge however his rate was very well-controlled. The plan is for him to follow-up as an outpatient for stress test and consider cardioversion after he has been anticoagulated for 30 days. His blood pressure was much better with the addition of Cardizem and lisinopril and he was discharged with prescriptions for both of these. With regards to his COPD exacerbation he was found to be positive for rhinovirus and this is likely the etiology of his symptoms. His wheezing was much improved at the time of discharge however he did still have few scattered end expiratory wheezes. He was on room air and an ambulatory pulse ox was performed. On room air at rest his oxygen saturations were 93% with exertion he was 90% indicating no need for supplemental oxygen at the time of discharge. We strongly advised that he stop smoking. We did arrange for follow-up with pulmonary medicine to address both his COPD/tobacco abuse as well as suspected sleep apnea that has been untreated. He also has a follow-up with cardiology on 07/31/2022. I have asked that he follow-up with his primary care physician within the next week for hospital follow-up. He was discharged home in stable condition on 07/12/2023. Discharge diagnoses: Acute exacerbation of COPD secondary to rhinovirus infection Shortness of breath-resolved New onset a flutter with variable block Hypertension Hyperglycemia-A1c was 5.5 Erythrocytosis-suspect related to his chronic tobacco abuse Chronic bilateral lower extremity edema from previous infections and injuries History of partial colectomy History of hernia repair with mesh Morbid obesity Tobacco abuse Physical Exam Const alert, oriented x3, no apparent distress and well nourished; Negative for average body habitus or healthy appearing Constitutional Narrative: Morbidly obese, white male, middle-aged, sitting up in a chair at the bedside watching television, patient appears comfortable, nontoxic, no conversational dyspnea General Appearance: cooperative, comfortable, well kempt and well developed Orientation / Consciousness: awake, oriented to person, oriented to place and oriented to time Exam Limitations: no limitations Nutritional Appearance: morbidly obese HEENT normocephalic, head/scalp atraumatic, hearing grossly normal bilaterally and moist oral mucous membranes HEENT Narrative: Mallampati 4, no thrush Eyes PERRL, EOMs intact bilaterally and conjunctivae normal Eyes Narrative: No scleral icterus Neck no lymphadenopathy and supple Neck Narrative: Trachea midline, no thyroid enlargement, neck is short and thick Resp normal respiratory effort, no retractions, no use of accessory muscles and No clear to auscultation bilaterally Resp Narrative: Diminished diffusely with very few scattered end expiratory wheezes Auscultation: Negative for crackles, rhonchi or wheezes Cardio regular rate, regular rhythm, S1 normal heart sound, S2 normal heart sound, no murmurs, no rub, no gallops and no clicks Cardio Narrative: Rhythm is regular and upon reviewing telemetry he appears to be in atrial flutter with 3-1 block GI normal to inspection, nondistended, normoactive bowel sounds, soft to palpation and non-tender GI Narrative: Large protuberant abdomen Extremity Extremity Narrative: Mild left lower extremity swelling from previous traumatic injury, no right lower extremity edema noted, no cyanosis, mild clubbing in the hands Skin no rashes or lesions noted, no wounds, skin turgor normal and no jaundice Neuro oriented x3, CN's II-XII intact bilaterally, moves all extremities and no focal motor deficits Speech: speech normal Psych affect normal Psych Narrative: Eye contact is good and patient interacts appropriately Weight / BMI Weight Weight: 143.5 kg Body Mass Index (BMI) 45.3 ABG / Lab / Microbiology Data 07/11/23 06:55 07/12/23 06:42 Laboratory: Laboratory Results - last 24 hr 07/11/23 06:55: Hemoglobin A1c 5.5 07/12/23 06:42: Sodium 133 L, Potassium 4.1, Chloride 102, Carbon Dioxide 24.0, Anion Gap 7, BUN 19 H, Creatinine 0.99, Estim Creat Clear Calc 116.42, Est GFR (MDRD) Af Amer 100, Est GFR (MDRD) Non-Af 82, BUN/Creatinine Ratio 19.2, Glucose 172 H, Calcium 9.5, Phosphorus 3.6, Magnesium 2.6 Microbiology: Microbiology 07/11/23 16:15 Mucosa - Nose Coronavirus COVID-19 PCR - Final 07/11/23 16:15 Mucosa - Nose Respiratory Panel (PCR) - Final Rhinovirus Radiography Diagnostic Testing: Radiology Impression Echocardiogram 07/10/23 20:58 Interpretation Summary The estimated ejection fraction is 65 %. Mild assymetric septal hypertrophy. Structually normal valves. The study was technically difficult. Contrast injection was performed. There is no comparison study available. Ordering Physician: Travis Trujillo Referring Physician: Jovana Barajas M.D. Performed By: Naomi Ortiz RDCS D/C Instructions Discharge Diet: Low fat / Low cholesterol Discharge Activity: Return to Normal Activity Return to work on: 07/16/23 Meaningful Use Info Meaningful Use Diagnoses (Choose all that apply): None applicable Discharge Plan Admission Admit Date/Time: 07/10/23 20:07 Attending Provider: Hanna Pat Primary Care Provider: Jovana Barajas Consulting Providers: Travis Trujillo; Devin Greene Discharge Orders/Prescriptions Prescriptions: New Eliquis 5 mg Tablet 5 mg PO BID Qty: 60 4RF diltiazem HCl 240 mg Capsule,Extended Release 24hr 240 mg PO DAILY Qty: 30 1RF guaifenesin [Mucus Relief ER] 1,200 mg Tablet Extended Release 12hr 1,200 mg PO BID Qty: 0 0RF lisinopril 10 mg Tablet 10 mg PO DAILY Qty: 30 1RF prednisone 10 mg tablet 10 mg PO DAILY Qty: 30 0RF Rx Instructions: 4 tablets x 3 days, 3 tablets x 3 days, 2 tablets x 3 days, 1 tablet x 3 days albuterol sulfate 90 mcg/actuation HFA aerosol inhaler 1 inh inhalation Q6H PRN (Reason: shortness of breath or wheezing) Qty: 8.5 1RF Referrals / Follow Up: Julio Cesar Hong DO [Med Staff - Active Staff] - 01/29/24 10:45 am Jovana Barajas MD [Primary Care Provider] - Within 1 Week (Please call the office to schedule an appt within the next week. ) Isa Wing PA [Med Staff - Adv Practice Prof] - 08/01/23 1:00 pm Disposition Disposition (needs filled in before D/C Order can be placed): Home, Self Care Charges/Coding Visit Charges Inpatient E&M: 22129 Disch Hosp >30min
[2023-07-12 13:58] VITALS: BP 123/86; PULSE 71; RESP 18; TEMP 36.6; O2SAT 94
--- NOTE | 2023-07-12 14:54 | CASEMGMT ---
Patient has order for discharge. Patient discharging on [facility] called and copay is $40. ELY CM in to discuss needs at discharge and updated patient regarding Eliquis copay. $10 copay card provided to patient. Patient denies further needs or help at discharge. Patient states he is talking with daughter currently about ride home. Patient had no further questions or concerns.
== END 2023-07-12 18:26 | disposition home or self-care (01) | DRG 191 ==
LOC: ED 19:33 → PCU 20:26
PROVIDERS: Admitting Provider Internal Medicine; Emergency Provider Emergency Medicine; PCP Internal Medicine; Visit Provider Internal Medicine
DX: J44.1 Chronic obstructive pulmonary disease with (acute) exacerbation (principal); I48.92 Unspecified atrial flutter; Z68.42 Body mass index [BMI] 45.0-49.9, adult; E88.819 Insulin resistance, unspecified; I48.91 Unspecified atrial fibrillation; E66.01 Morbid (severe) obesity due to excess calories; I10 Essential (primary) hypertension; F17.210 Nicotine dependence, cigarettes, uncomplicated; G47.33 Obstructive sleep apnea (adult) (pediatric); I87.2 Venous insufficiency (chronic) (peripheral); R73.9 Hyperglycemia, unspecified; B97.89 Other viral agents as the cause of diseases classified elsewhere
CPT/HCPCS: 36415; 71046; 80048; 80053; 83036; 83605; 83735; 83880; 84100; 84443; 84484; 85025; 87633; 87635; 93005; 93306; 94002; 94640; 94668; 94762; 99252; 99285; 99406; J7030; Q9957; A4216; C8929; G0463; J1940

== ENCOUNTER → 2023-08-01 | Outpatient (CLI) | payer BC, SELFPAY ==
[2023-08-01 15:22] LABS: BNP,B-Type NATRIURETIC PEPTIDE 12.9 pg/mL (0-100)
[2023-08-01 15:29] LABS: Anion Gap 2 (5-15); BUN 15 mg/dL (7-18); BUN/Creat Ratio 11.7 RATIO (10-20); Calcium,Total 9.6 mg/dL (8.5-10.1); Chloride 102 mmol/L (98-107); Creatinine, Serum 1.28 mg/dL (0.70-1.30); EST Glomerular Filtration Rate 61 mL/min (>60); Est Glom Filt Rate - Afr Amer 74 mL/min (>60); Glucose 113 mg/dL (74-106); Potassium 4.5 mmol/L (3.5-5.1); Sodium Level 135 mmol/L (136-145)
== END | disposition home or self-care (01) ==
LOC: LAB 13:48
PROVIDERS: PCP Internal Medicine; Visit Provider Physician Assistant Medical
DX: R06.09 Other forms of dyspnea (principal); I48.91 Unspecified atrial fibrillation; I48.92 Unspecified atrial flutter
CPT/HCPCS: 36415; 80048; 83880

== ENCOUNTER 2023-09-21 10:36 | Day surgery (SDC) | payer BC, SELFPAY ==
[2023-08-20 11:53] VITALS: BMI 44.6
--- NOTE | 2023-09-20 15:23 | HP.PCM_ITS ---
History and Physical Obdulio Henry is a 57 year old male that presents here today for a DCCV. He had presented to [facility] on 07/10/2023 with concerns over increased shortness of breath. There was concern that his shortness of breath was related to a toxic exposure to paint fumes at work. EKG demonstrated atrial flutter with variable AV block. Echocardiogram demonstrated an ejection fraction of 65% with mild asymmetric septal hypertrophy structurally normal valves. Patient was discharged home with anticoagulation, rate control and plan s to obtain a stress test on an outpatient basis. He does have a history of hypertension, tobacco abuse. EKG today demonstrates atrial flutter with variable rate. Patient still notes that he is short of breath with exertion. It is difficult for him to tell me if this is worse than before. Ending with him I do feel that this could be slightly worse than previous. He states at home he thinks his heart rate has been controlled. He is not aware of any irregular heartbeats. He does not have any chest pain. He does not have any lightheadedness or dizziness. He does not have any lower extremity edema. Allergies iodine Allergy (Severe, Verified 08/01/23 12:58) Anaphylaxis iohexol [From Omnipaque] Allergy (Severe, Verified 08/01/23 12:58) Anaphylaxis doxycycline Allergy (Verified 08/01/23 12:58) Rash Iodinated Contrast Media [CT] Allergy (Verified 08/01/23 12:58) Anaphylaxis Medications albuterol sulfate 90 mcg/actuation aerosol inhaler 1 inh inhalation Q6H PRN shortness of breath or wheezing #8.5 grams 07/12/23 [Rx Confirmed 08/01/23] guaifenesin 1,200 mg tablet, extended release 12 hr (Mucus Relief ER) 1,200 mg PO BID #0 tabs 07/12/23 [Rx Confirmed 08/01/23] prednisone 10 mg tablet 10 mg PO DAILY #30 tabs 07/12/23 [Rx Confirmed 08/01/23] apixaban 5 mg tablet (Eliquis) 5 mg PO BID #60 tabs 08/01/23 [Rx Confirmed 08/01/23] diltiazem HCl 240 mg capsule,extended release 24 hr 240 mg PO DAILY #90 caps 08/01/23 [Rx Confirmed 08/01/23] lisinopril 10 mg tablet 10 mg PO DAILY #90 tabs 08/01/23 [Rx Confirmed 08/01/23] [facility] Medical History (Updated 08/01/23 @ 13:35 by Isa RYAN, PA) Allergic drug rash Atrial fibrillation and flutter Benign essential hypertension Bilateral lower extremity edema Dermatitis Erythrocytosis Hyperglycemia Hypertension Hypertension Morbid obesity Morbid obesity with BMI of 40.0-44.9, adult REX (obstructive sleep apnea) Staphylococcal infection of skin Ulcer of left lower extremity with fat layer exposed Ulcer of right lower extremity with fat layer exposed Venous insufficiency of both lower extremities Venous stasis ulcer of left lower leg with edema of left lower leg Venous stasis ulcer with varicose veins of right lower extremity Surgical History H/O gastric bypass History of ankle surgery History of hernia repair History of partial surgical removal of colon Family History Mother CAD (coronary artery disease) Social History Smoking Status: Current every day smoker tobacco type: cigarettes alcohol intake: current alcohol intake frequency: a few times a month substance use type: does not use what type of physical activity do you participate in: none ROS Const Const: Negative for fatigue, weakness, fever(s) or headache(s) Eyes Eyes: Negative for blind spots, loss of peripheral vision or transient loss of vision ENT ENT: Negative for headache(s), dizziness, tinnitus, Nosebleed/epistaxis or balance problems Cardio Chest Pain: No Palpitations: No Edema: None Muscle aches with walking: None Resp Respiratory: Positive for SOB with activity; Negative for SOB at rest, SOB orthopnea\SOB lying down or Cough GI GI: Negative nausea, vomiting, heartburn or vomiting blood/hematemesis : Negative for hematuria Musc Musc: Negative for muscle aches/ myalgia, muscle weakness, joint pain or balance problems Neuro Neuro: Negative for dizziness, lightheadedness, near syncope, syncope, orthostatic symptoms, headache(s) or weakness Jeremy Hematologic/Lymphatic: Negative for easy bleeding Endo Endo: Negative for fatigue Cardiology Exam Const Appearance: cooperative, comfortable, no acute distress and well developed Nutritional Appearance: obese Orientation: alert, awake and oriented x3 Head Head: normal to inspection Ears: hearing grossly normal bilaterally Nose: external nose normal Face and Sinus: face symmetric Mouth: oral mucosae normal, lip normal and moist mucous membranes Eyes General: appearance normal, both eyes and all related structures Eyelids: eyelids normal Conjunctivae: conjunctivae normal Pupils: PERRL EOM: EOM intact bilaterally Neck Neck: normal visual inspection and trachea midline; Negative no JVD Carotids: Negative bruit Chest Chest inspection: normal inspection of the chest Auscultation: Bilateral: Diminished Lung Sounds, Inspiratory Wheezes and Expiratory Wheezes Cardio Palpation: normal PMI Rhythm: irregularly irregular Heart sounds: S1 normal and S2 normal; Negative rub, gallop or murmur GI GI: soft, no hepatosplenomegaly, bowel sounds present and obese Neuro General: patient alert, patient awake, patient oriented x3 and CN's II-XI intact bilaterally Extremities Pulses: Normal: Right Posterior Tibial Pulse, Left Posterior Tibial Pulse, Right Radial Pulse and Left Radial Pulse Lower Extremity Edema: None: Bilateral Psych Psychological: normal affect Supplemental Info Supplemental Information Echocardiogram 06/2023: The estimated ejection fraction is 65 %. Mild assymetric septal hypertrophy. Structually normal valves. The study was technically difficult. Contrast injection was performed. There is no comparison study available. Assessment & Plan Assessment/Plan (1) Atrial fibrillation and flutter: (2) Benign essential hypertension: (3) Hyperlipidemia: PLAN: Plan Pt will undergo a DCCV. Plan of care will be based on outcome.
[2023-09-21 11:12] LABS: Anion Gap 6 (5-15); BUN 14 mg/dL (7-18); Calcium,Total 9.4 mg/dL (8.5-10.1); Chloride 100 mmol/L (98-107); Creatinine, Serum 1.17 mg/dL (0.70-1.30); EST Glomerular Filtration Rate 68 mL/min (>60); Est Glom Filt Rate - Afr Amer 82 mL/min (>60); Estimated Creatinine Clearance 97.56 ml/min; Glucose 119 mg/dL (74-106); Potassium 4.7 mmol/L (3.5-5.1); Sodium Level 135 mmol/L (136-145)
--- NOTE | 2023-09-21 12:27 | PRO.PCM_ITS ---
Procedure Report Date of Procedure: 09/21/23 CONSCIOUS SEDATION REPORT DATE OF SERVICE: September 21, 2023 BRIEF HISTORY OF PRESENT ILLNESS: The patient is a 57-year-old male who presented to [facility] for elective outpatient cardioversion due to underlying atrial fibrillation. The patient is systemically anticoagulated on Eliquis. His last surface echocardiogram demonstrated an ejection fraction of approximately 65%. The patient denied any prior anesthetic complications. He did report a history of COPD along with obstructive sleep apnea and daily tobacco dependency. He is not compliant with the use of nocturnal PAP therapy. PHYSICAL EXAMINATION: VITAL SIGNS: Reviewed and were acceptable. GENERAL: The patient is a morbidly obese male, in no apparent distress, speaking in full sentences. HEENT: Normocephalic, atraumatic. Mucous membranes are moist and pink. Good mouth opening noted. Trachea is midline. Good neck mobility. CHEST: S1, S2 irregularly irregular. No murmurs, rubs or gallops were noted. LUNGS: Diminished without appreciable wheezes, rales or rhonchi. ABDOMEN: Soft, nontender, nondistended. Positive bowel sounds. EXTREMITIES: There is no clubbing, cyanosis or edema. ASA Class: II DESCRIPTION OF PROCEDURE: After confirmation of informed consent, the patient's anesthesia plan was reviewed in detail. Propofol was chosen. Risks and benefits were reviewed and the patient agreed to proceed. At 1219, the patient was given 50 mg of propofol. The patient achieved an appropriate level of sedation and was given a 300 joule synchronized cardioversion by Dr. Keita at the bedside. This was successful in achieving normal sinus rhythm. The patient was monitored until 1231, at which time he reached his baseline mental status and function. The patient tolerated the procedure well. COMPLICATIONS: None ESTIMATED BLOOD LOSS: None RECOMMENDATIONS: Okay to recover in usual fashion. Procedures Pulmonary Pulmonary Procedures /Diagnostic Testin Con Sedation
--- NOTE | 2023-09-21 12:30 | PCM.OP.PRO ---
Procedure Report Date of Procedure: 09/21/23 DC cardioversion. 57-year-old male with a history of persistent atrial flutter. Patient was brought to cardiac catheterization lab in the postabsorptive nonsedated state. Informed consent was obtained. Patient was seen by Dr. Hong of the critical care division. Anterior-posterior pads were applied. 50mg of intravenous propofol was administered. 300 J of synchronized biphasic energy were applied with prompt reversal to sinus rhythm. Patient tolerated the procedure well. Conclusion: Successful DC cardioversion from atrial flutter to sinus rhythm. Continue anticoagulation Follow-up as per office protocol.
== END 2023-09-21 13:24 | disposition home or self-care (01) ==
PROVIDERS: Physician Assistant Medical; PCP Internal Medicine; Referring Provider Internal Medicine Cardiovascular Disease; Visit Provider Internal Medicine Cardiovascular Disease
DX: I48.19 Other persistent atrial fibrillation (principal); I10 Essential (primary) hypertension; Z79.01 Long term (current) use of anticoagulants; F17.210 Nicotine dependence, cigarettes, uncomplicated
CPT/HCPCS: 36415; 80048; 92960; 93005; J7040

== ENCOUNTER → 2023-10-31 | Outpatient (CLI) | payer BC, SELFPAY ==
[2023-10-31 15:59] LABS: Hemoglobin A1c 5.5 % (3.8-5.6)
== END | disposition home or self-care (01) ==
LOC: LAB 14:41
PROVIDERS: PCP Internal Medicine; Referring Provider Physician Assistant Medical; Visit Provider Physician Assistant Medical
DX: E88.819 Insulin resistance, unspecified (principal); R73.9 Hyperglycemia, unspecified; G47.33 Obstructive sleep apnea (adult) (pediatric); R06.09 Other forms of dyspnea
CPT/HCPCS: 36415; 83036

== ENCOUNTER → 2023-11-16 | Outpatient (CLI) | payer BC, SELFPAY ==
--- NOTE | 2023-11-16 16:15 | STRESSREP ---
Stress Test Report Pharmacologic myocardial perfusion stress test. 57-year-old man with a history of dyspnea on exertion Resting EKG demonstrates sinus rhythm with a rate of 76 bpm. Resting blood pressure is 128/78 mmHg. 0.4 mg of regadenoson was infused per usual protocol followed by rapid intravenous saline flush injection. Continuous EKG monitoring was performed. The maximum heart rate was 98 bpm which was 60% of max impacted heart rate the maximum workload was 1 metabolic equivalent. At rest there were no ST or T wave changes noted to suggest ischemia and at peak infusion nonspecific ST changes were noted which did not meet the criteria for ischemia. No clinical angina is noted. The final blood pressure was 128/88 mmHg. Myocardial perfusion protocol. 15 mCi of technetium 99m sestamibi was injected at rest. 0.4 mg of regadenoson was infused per usual protocol. At peak infusion 45 mCi of technetium 99m sestamibi was injected stress images were obtained stress and rest images were reconstructed and compared in the short axis vertical long and horizontal long axis. Gated images were also obtained. Perfusion SPECT analysis: Review of the stress images demonstrate normal uptake of tracer noted in all areas of the myocardium. The resting images similar demonstrated normal uptake of tracer noted in all areas of the myocardium. No areas of reversibility are noted to suggest ischemia and no previous infarct is noted. Gated SPECT analysis: The gated ejection fraction is 72%. Conclusion: Normal pharmacologic myocardial perfusion stress test. Preserved ejection fraction.
== END | disposition home or self-care (01) ==
LOC: CVS 06:54
PROVIDERS: PCP Internal Medicine; Referring Provider Physician Assistant Medical; Visit Provider Physician Assistant Medical
DX: E88.818 Other insulin resistance (principal); R73.9 Hyperglycemia, unspecified; G47.33 Obstructive sleep apnea (adult) (pediatric); R06.09 Other forms of dyspnea
CPT/HCPCS: 78452; 93017; A9500; A4216; J2785

== ENCOUNTER → 2023-11-28 | Outpatient (CLI) | payer BC, SELFPAY | END | disposition home or self-care (01) | LOC: SL 20:02 | PROVIDERS: PCP Internal Medicine; Referring Provider Physician Assistant Medical; Visit Provider Physician Assistant Medical | DX: G47.33 Obstructive sleep apnea (adult) (pediatric) (principal); E88.818 Other insulin resistance; E73.9 Lactose intolerance, unspecified; R06.09 Other forms of dyspnea | CPT/HCPCS: 95811 ==

== ENCOUNTER → 2024-01-14 | Outpatient (CLI) | payer BC, SELFPAY | END | disposition home or self-care (01) | LOC: SL 12:54 | PROVIDERS: PCP Internal Medicine; Visit Provider Physician Assistant Medical | DX: Z46.89 Encounter for fitting and adjustment of other specified devices (principal) ==

== ENCOUNTER → 2024-07-31 | Outpatient (CLI) | payer BC, SELFPAY | END | disposition home or self-care (01) | LOC: SL 13:49 | PROVIDERS: PCP Internal Medicine; Referring Provider Nurse Practitioner Acute Care; Visit Provider Nurse Practitioner Acute Care | DX: G47.33 Obstructive sleep apnea (adult) (pediatric) (principal) ==

== ENCOUNTER → 2024-08-01 | Outpatient (CLI) | payer BC, SELFPAY | END | disposition home or self-care (01) | LOC: PSN 08:12 | PROVIDERS: PCP Internal Medicine; Referring Provider Nurse Practitioner Acute Care; Visit Provider Nurse Practitioner Acute Care | DX: R06.09 Other forms of dyspnea (principal) | CPT/HCPCS: 94060; 94726; 94729 ==

== ENCOUNTER → 2024-08-08 | Outpatient (CLI) | payer BC, SELFPAY ==
--- NOTE | 2024-08-08 08:03 | CT_ITS ---
PROCEDURE: LOW DOSE CT LUNG SCREENING 08/08/2024 REASON FOR EXAM: Current smoker. Patient has smoked 1 pack per day for 40 years. TECHNIQUE: Low Dose CT Lung screening without contrast. Coronal and Sagittal reconstruction series were provided. One or more dose reduction techniques were used (e.g., Automated exposure control, adjustment of the mA and/or kV according to patient size, use of iterative reconstruction technique). REFERENCE LINK: [employer] Lung-RADS RADIATION DOSE SUMMARY: CTDlvol: 4.02 mGy DLP: 132.4 mGycm COMPARISON: None. FINDINGS: PULMONARY NODULES: (Only nodules >3mm are reported) Nodules described below are on series 1 unless otherwise specified. Pulmonary Nodules: No suspicious nodules are seen. Hardware:None Lymph Nodes:No mediastinal lymph nodes are present. Heart and Vasculature:Coronary artery calcifications are noted. Coronary Artery Calcifications: Present Lungs and Airways: Mild emphysematous changes are present. Pleura:Unremarkable Upper Abdomen:Unremarkable Bones:Degenerative changes of the thoracic spine. CT/Low Dose CT Lung Screening IMPRESSION: No suspicious nodules are seen. Coronary artery calcification (CAC) is is present Lung-RADS Category: 2 BENIGN (BASED ON IMAGING FEATURES OR INDOLENT BEHAVIOR). RECOMMEND 12-MONTH SCREENING LDCT. Other Significant Findings: None. Reading Location: [place] [id number]
== END | disposition home or self-care (01) ==
LOC: CT 08:00
PROVIDERS: PCP Internal Medicine; Referring Provider Nurse Practitioner Acute Care; Visit Provider Nurse Practitioner Acute Care
DX: F17.210 Nicotine dependence, cigarettes, uncomplicated (principal)
CPT/HCPCS: 71271

== ENCOUNTER → 2024-08-22 | Outpatient (CLI) | payer BC, SELFPAY ==
[2024-08-22 13:05] VITALS: PULSE 100; PULSE 102; PULSE 103; PULSE 110; PULSE 111; PULSE 115; PULSE 118; PULSE 99; O2SAT 90; O2SAT 91; O2SAT 92; O2SAT 94
--- NOTE | 2024-08-22 13:07 | CPS ---
Patient had audible wheezing that started about the third minute.
--- NOTE | 2024-08-26 09:24 | WT_ITS ---
PSN 6 Minute Walk Test 6 Minute Walk Test 6 Minute Walk Test: 6 Minute Walk Test PSN:6-Minute Walk Test Start: 08/22/24 13:03 Freq: Status: Active Protocol: [id number] Document 08/22/24 13:05 SANIAJOE (Rec: 08/22/24 13:07 VANESSA [id number]) 6 Minute Walk Test Date Performed 08/22/24 Time Performed 12:30 Height 5 ft 10 in Weight: 315 lb Weight in Pounds 315.[address]: Shyanne Arriaga SENIOR OFFICE SUPPORT ASSISTANT SOSA Assistive device None used: Pre-test Oxygen Delivery Room Air Method Pulse Ox (%) 92 Pulse Rate (60-100 99 beats/min) Dyspnea Kyler Scale ( 0.5 0-10) Exertion Kyler Scale 6 (6-20) 1st minute Oxygen Delivery Room Air Method Pulse Ox (%) 91 Pulse Rate (60-100 102 H beats/min) 2nd minute Oxygen Delivery Room Air Method Pulse Ox (%) 90 Pulse Rate (60-100 103 H beats/min) 3rd minute Oxygen Delivery Room Air Method Pulse Ox (%) 91 Pulse Rate (60-100 118 H beats/min) 4th minute Oxygen Delivery Room Air Method Pulse Ox (%) 92 Pulse Rate (60-100 115 H beats/min) 5th minute Oxygen Delivery Room Air Method Pulse Ox (%) 91 Pulse Rate (60-100 110 H beats/min) 6th minute Oxygen Delivery Room Air Method Pulse Ox (%) 92 Pulse Rate (60-100 111 H beats/min) Dyspnea Kyler Scale ( 3 0-10) Exertion Kyler Scale 13 (6-20) Post-test Oxygen Delivery Room Air Method Pulse Ox (%) 94 Pulse Rate (60-100 100 beats/min) Full Laps Walked 16 Partial Lap, Number 6 of Tiles Walked Total Distance 950 Walked (ft) 08/22/24 13:07 Cardiopulmonary Services by Neela Cabrera Patient had audible wheezing that started about the third minute. Initialized on 08/22/24 13:07 - END OF NOTE Interpretation Interpretation: The patient ambulated 950 feet over the course of 6 minutes beginning on room air without assistive devices. Pretesting oxygen saturation was noted to be 92% on room air. With ambulation, the logan oxygen saturation was 90%. There was no significant exertional oxygen desaturation. Recommendations Recommendations: There is no indication for the use of supplemental oxygen at this time.
== END | disposition home or self-care (01) ==
LOC: PSN 12:27
PROVIDERS: PCP Internal Medicine; Referring Provider Nurse Practitioner Acute Care; Visit Provider Nurse Practitioner Acute Care
DX: R06.09 Other forms of dyspnea (principal)
CPT/HCPCS: 94618